=== PATIENT | female | born 1945 | race Caucasian/White ===

== ENCOUNTER → 2017-03-14 | Outpatient (CLI) | payer OTHER, BC ==
[~2017-03-14] MED LIST: ACET-1256 PO; ALBU18002 INH; AMLO2.5T PO; ATOR-24 PO; ATV/1 PO; ATV1 SL; BENAZEPRIL/HCTZ; CITA10TA4 PO; CITA20TA4 PO; CONJ.6255 PO; FLUT1INH7 INH; HYDR1CRE; IPRASOL4 INH; LATA0.5S OPB; LOSA100T33 PO; METO50TA7 PO; OLME40TA30 PO; POLY335019 PO; PRLSR20 PO; SYMIN160 INH; TRAZ50TA35 PO; TRIA120A INTNAS; TRIA1SPR4 NAE
== END | disposition home or self-care (01) ==
LOC: C.LABMFLN 11:22
PROVIDERS: ATTEND Family Medicine
DX: I10 Essential (primary) hypertension (principal)

== ENCOUNTER → 2017-03-18 | Outpatient (CLI) | payer OTHER, BC ==
--- NOTE | 2017-03-18 09:29 | DIAGNOSTIC IMAGING REPORT ---
ULTRASOUND RIGHT UPPER QUADRANT ABDOMEN CLINICAL HISTORY: Right upper quadrant abdominal pain. COMPARISON STUDY: No priors. TECHNIQUE: Real-time, grayscale, and color flow sonography of the right upper quadrant of the abdomen was performed. Images are reviewed in the transverse and longitudinal planes. FINDINGS: Liver: The liver is normal in size and demonstrates heterogeneously increased echotexture suggesting hepatic steatosis. There is no intrahepatic biliary ductal dilatation. The main portal vein is patent. Gallbladder: The gallbladder is normal in appearance. No gallstones are identified. There is no gallbladder wall thickening or pericholecystic fluid. A sonographic Monsalve's sign is reportedly absent. The common bile duct measures up to 0.4 cm in diameter. Pancreas: Visualized portions of the pancreatic head and body are normal in appearance. Right kidney: The right kidney is atrophic and without hydronephrosis. Ascites: None. IMPRESSION: 1. No acute sonographic abnormality is identified in the right upper quadrant. No gallstones are seen. 2. Findings suggest hepatic steatosis. Electronically signed by: Cirilo Jean M.D. 03/18/2017 9:27 AM Dictated Date/Time: 03/18/2017 9:25 AM
== END | disposition home or self-care (01) ==
LOC: C.ULTR 08:01
PROVIDERS: ATTEND Physician Assistant
DX: R10.11 Right upper quadrant pain (principal)

== ENCOUNTER → 2017-03-18 | Outpatient (CLI) | payer OTHER, BC ==
--- NOTE | 2017-03-18 09:27 | DIAGNOSTIC IMAGING REPORT ---
RENAL ARTERY DUPLEX ULTRASOUND CLINICAL HISTORY: Resistant hypertension COMPARISON STUDY: No previous studies for comparison. FINDINGS: The peak systolic velocity within the aorta was 114 cm/s. The right kidney measured 10.1 cm in length. The peak systolic velocity within the right renal artery was 142 cm/s. The left kidney measures 10.1 cm in length. The peak systolic velocity within the left renal artery measured 108 cm/s. IMPRESSION: No evidence of renal artery stenosis by velocity criteria. Electronically signed by: Alverto Castañeda M.D. 03/18/2017 9:24 AM Dictated Date/Time: 03/18/2017 9:23 AM
== END | disposition home or self-care (01) ==
LOC: C.ULTR 07:56
PROVIDERS: ATTEND Family Medicine
DX: I10 Essential (primary) hypertension (principal); R10.11 Right upper quadrant pain

== ENCOUNTER → 2017-04-12 | Outpatient (CLI) | payer OTHER, BC | END | disposition home or self-care (01) | LOC: C.LABMFLN 10:08 | PROVIDERS: ATTEND Physician Assistant | DX: J47.9 Bronchiectasis, uncomplicated (principal); K21.9 Gastro-esophageal reflux disease without esophagitis ==

== ENCOUNTER → 2017-04-14 | Outpatient (CLI) | payer OTHER, BC ==
[~2017-04-14] MED LIST changes: +MoRPHine SULFATE 2 MG/ML CARP ONE
--- NOTE | 2017-04-14 09:58 | DIAGNOSTIC IMAGING REPORT ---
NUCLEAR HEPATOBILIARY SCAN CLINICAL HISTORY: Epigastric abdominal pain. Chronic gastroesophageal reflux disease. COMPARISON STUDY: Abdominal ultrasound dated 03/18/2017. TECHNIQUE: Dynamic images of the liver and anterior abdomen were obtained every 5 minutes for a total of 60 minutes following the IV administration of 5.4mCi of technetium 99m Choletec. The gallbladder was not visualized at 60 minutes. The patient then received 2 mg of IV morphine and additional static images were acquired every 5 minutes for an additional 30 minutes. FINDINGS: The hepatobiliary scan shows prompt and homogeneous hepatic uptake. There is visualized activity within the intra and extrahepatic biliary tree at 10 minutes. There is normal biliary to bowel transit, with small bowel visualized by 15 minutes. The gallbladder was not definitively visualized at 60 minutes. The patient then received IV morphine, and a structure that likely represents the gallbladder is present 65 minutes. This also likely flash filled on the initial 60 minute study but this is indeterminant. IMPRESSION: 1. The gallbladder was not definitively visualized at 60 minutes. 2. The patient received IV morphine, a structure that likely represents the gallbladder fills with tracer by 65 minutes. This also likely showed flash filling on the initial examination. Acute cholecystitis is considered unlikely. Close clinical and laboratory correlation will be required. Electronically signed by: Cirilo Jean M.D. 04/14/2017 9:57 AM Dictated Date/Time: 04/14/2017 9:50 AM
== END | disposition home or self-care (01) ==
LOC: C.NUCL 07:30
PROVIDERS: ATTEND Physician Assistant
DX: K21.9 Gastro-esophageal reflux disease without esophagitis (principal)

== ENCOUNTER → 2017-08-23 | Outpatient (CLI) | payer OTHER, BC ==
[~2017-08-23] MED LIST changes: -ACET-1256 PO; -ATV1 SL; -BENAZEPRIL/HCTZ; -CITA10TA4 PO; -CITA20TA4 PO; -CONJ.6255 PO; -FLUT1INH7 INH; -HYDR1CRE; -LATA0.5S OPB; +LOSA100T26 PO; -LOSA100T33 PO; -METO50TA7 PO; -MoRPHine SULFATE 2 MG/ML CARP ONE; -OLME40TA30 PO; -TRAZ50TA35 PO; -TRIA120A INTNAS
[2017-08-23 18:10] LABS: BASO % 0.2 %; BASO ABS # 0.02 K/uL (0-0.2); COMPLETE YES; EOS % 1.1 %; HEMATOCRIT 37.3 % (37-47); IG% 0.3 %; LYMPH % 17.8 %; LYMPH ABS # 1.71 K/uL (1.2-3.4); MEAN CELL VOLUME 97.4 fL (80-100); MEAN CORPUSCULAR HEMOGLOBIN 31.9 pg (25-34); MEAN CORPUSCULAR HGB CONC 32.7 g/dl (32-36); MEAN PLATELET VOLUME 8.4 fL (7.4-10.4); MONO % 7.8 %; NEUT % 72.8 %; PLATELET COUNT 284 K/uL (130-400); RED BLOOD COUNT 3.83 M/uL (4.2-5.4); WHITE BLOOD COUNT 9.59 K/uL (4.8-10.8)
[2017-08-23 18:30] LABS: ALT/SGPT 14 U/L (12-78); AMYLASE 60 U/L (25-115); BLOOD UREA NITROGEN 15 mg/dl (7-18); BUN/CREATININE RATIO 16.5 (10-20); CALCIUM 9.3 mg/dl (8.5-10.1); CARBON DIOXIDE 27 mmol/L (21-32); CHLORIDE 103 mmol/L (98-107); CREATININE 0.92 mg/dl (0.60-1.20); GLUCOSE 131 mg/dl (70-99); POTASSIUM 3.7 mmol/L (3.5-5.1); SODIUM 138 mmol/L (136-145)
[2017-08-23 18:33] LABS: ALKALINE PHOSPHATASE 70 U/L (45-117); AST/SGOT 11 U/L (15-37)
== END | disposition home or self-care (01) ==
LOC: C.LABMFLN 17:03
PROVIDERS: ATTEND Family Medicine
DX: R19.7 Diarrhea, unspecified (principal); K92.1 Melena; R10.13 Epigastric pain

== ENCOUNTER → 2017-08-25 | Outpatient (CLI) | payer BC ==
[~2017-08-25] MED LIST changes: +ACET-1256 PO; +CITA20TA4 PO; +FLUT1INH7 INH; +LATA0.5S OPB; +TRAZ50TA35 PO
[2017-08-26 23:04] LABS: CRYPTOSPORIDIUM AG TC 37213 NOT DETECTED (NOT DETECTED); O&P GIARDIA AG NOT DETECTED (NOT DETECTED)
== END | disposition home or self-care (01) ==
LOC: C.LABMFLN 14:09
PROVIDERS: ATTEND Family Medicine
DX: R19.7 Diarrhea, unspecified (principal); K92.1 Melena; R10.13 Epigastric pain

== ENCOUNTER → 2018-03-21 | Outpatient (CLI) | payer OTHER, BC ==
[~2018-03-21] MED LIST changes: -ATOR-24 PO; -LOSA100T26 PO; +LOSA100T33 PO; -POLY335019 PO; -SYMIN160 INH
[2018-03-21 12:36] LABS: BASO % 0.8 %; BASO ABS # 0.04 K/uL (0-0.2); EOS % 2.9 %; EOS ABS # 0.14 K/uL (0-0.5); HEMATOCRIT 38.5 % (37-47); HEMOGLOBIN 12.7 g/dL (12.0-16.0); IG# 0.01 K/uL (0.00-0.02); LYMPH % 31.1 %; LYMPH ABS # 1.49 K/uL (1.2-3.4); MEAN CELL VOLUME 99.7 fL (80-100); MEAN CORPUSCULAR HEMOGLOBIN 32.9 pg (25-34); MEAN PLATELET VOLUME 8.9 fL (7.4-10.4); MONO % 10.6 %; MONO ABS # 0.51 K/uL (0.11-0.59); NEUT % 54.4 %; PLATELET COUNT 328 K/uL (130-400); RED CELL DISTRIBUTION WIDTH CV 12.9 % (11.5-14.5); RED CELL DISTRIBUTION WIDTH SD 46.9 fL (36.4-46.3); WHITE BLOOD COUNT 4.79 K/uL (4.8-10.8)
[2018-03-21 13:56] LABS: ALBUMIN 3.8 gm/dl (3.4-5.0); ALKALINE PHOSPHATASE 75 U/L (45-117); ALT/SGPT 19 U/L (12-78); AST/SGOT 13 U/L (15-37); BLOOD UREA NITROGEN 13 mg/dl (7-18); CALCIUM 9.7 mg/dl (8.5-10.1); CARBON DIOXIDE 30 mmol/L (21-32); CREATININE 0.97 mg/dl (0.60-1.20); GLUCOSE 111 mg/dl (70-99); POTASSIUM 3.6 mmol/L (3.5-5.1); SODIUM 137 mmol/L (136-145); TOTAL PROTEIN 7.6 gm/dl (6.4-8.2)
== END | disposition home or self-care (01) ==
LOC: C.LABMFLN 09:05
PROVIDERS: ATTEND Family Medicine
DX: M79.7 Fibromyalgia (principal); M79.89 Other specified soft tissue disorders; R53.83 Other fatigue; R07.89 Other chest pain; Z87.898 Personal history of other specified conditions

== ENCOUNTER → 2018-06-29 | Outpatient (CLI) | payer OTHER, BC ==
[~2018-06-29] MED LIST changes: +IPRA-64 INH; -IPRASOL4 INH
--- NOTE | 2018-06-29 15:10 | DIAGNOSTIC IMAGING REPORT ---
MRI CERVICAL WITHOUT CONTRAST CLINICAL HISTORY: M54.12 Cervical radiculopathy NECK PAIN WITH LEFT SHOULDER RADICULOPATHY. TECHNIQUE: Sagittal and axial T1, T2 and STIR images were obtained. COMPARISON STUDY: No previous studies for comparison. There are no suspicious areas of marrow replacement. No intrinsic cervical cord lesions are visualized. The examination is significantly compromised due to patient motion artifact. Multiple sequences were repeated. C2-3: There is a circumferential disc bulge. There is no significant spinal or foraminal stenosis C3-4: There is a circumferential disc bulge. There is mild spinal stenosis. There is mild bilateral foraminal narrowing C4-5: There is no evidence of disc bulge or focal herniation. There is no significant spinal stenosis. There is mild right-sided foraminal narrowing C5-6 :There is no evidence of significant disc bulge or focal herniation. There is no significant spinal stenosis. There is minor bilateral foraminal narrowing C6-7: There is a circumferential disc bulge slightly asymmetric to the left. There is no significant spinal stenosis. There is bilateral foraminal narrowing C7-T1: There is no evidence of disc bulge or focal herniation. There is no evidence of spinal or foraminal stenosis. IMPRESSION: 1. Examination compromised due to patient motion artifact 2. No intrinsic cord lesions identified given the limitations of study 3. Multilevel spondylitic change. Mild spinal stenosis the C3-4 level. Multilevel foraminal narrowing. Electronically signed by: Alverto Castañeda M.D. 06/29/2018 3:08 PM Dictated Date/Time: 06/29/2018 3:05 PM
== END | disposition home or self-care (01) ==
LOC: C.MRI 13:53
PROVIDERS: ATTEND Family Medicine
DX: M54.12 Radiculopathy, cervical region (principal)

== ENCOUNTER 2019-08-18 09:37 | Inpatient (IN) ==
[2019-08-18] MEDS ORDERED: SODIUM CHLORIDE 0.9% 1000ML 1,000 ML IV SCH (10:00)
[2019-08-18 10:25] LABS: Basophils # (auto) 0.02 K/uL (0-0.2); Basophils % (auto) 0.4 %; Eosinophils # (auto) 0.06 K/uL (0-0.5); Eosinophils % (auto) 1.3 %; Hemoglobin 12.2 g/dL (12.0-16.0); Immature Granulocytes # (auto) 0.02 K/uL (0.00-0.02); Immature Granulocytes % (auto) 0.4 %; Lymphocytes # (auto) 0.62 K/uL (1.2-3.4); Lymphocytes % (auto) 13.8 %; Mean Corpuscular Hgb Conc 33.9 g/dL (32-36); Mean Corpuscular Volume 94.5 fL (80-100); Mean Platelet Volume 8.5 fL (7.4-10.4); Monocytes # (auto) 0.47 K/uL (0.11-0.59); Monocytes % (auto) 10.5 %; Neutrophils % (auto) 73.6 %; Platelet Count 275 K/uL (130-400); RDW Coefficient of Variation 14.1 % (11.5-14.5); RDW Standard Deviation 48.4 fL (36.4-46.3); Red Blood Count 3.81 M/uL (4.2-5.4); White Blood Count 4.49 K/uL (4.8-10.8)
--- NOTE | 2019-08-18 10:30 | XRay Report ---
XR chest 1V portable CLINICAL HISTORY: weakness COMPARISON STUDY: Chest radiograph June 27, 2019. Chest CT July 19, 2019. FINDINGS: A large hiatal hernia is noted. There is cardiomegaly without evidence for pulmonary edema. There is no pneumothorax or pleural effusion. No consolidation. IMPRESSION: No acute cardiopulmonary findings. Large hiatal hernia. Electronically signed by: Bolivar Contreras M.D. 08/18/2019 10:29 AM
[2019-08-18 10:50] LABS: Appearance Urine Cloudy (Clear); Bacteria Urine Automated 1+ (Negative); Bilirubin Urine Negative (Negative); Blood Urine Negative (Negative); Color Urine Yellow; Epithelial Cell Urine Auto >30 /lpf (0-5); Glucose Urine UA Negative (Negative); Ketones Urine Trace (Negative); Leukocyte Esterase Urine Trace (Negative); Nitrite Urine Negative (Negative); Protein Urine Negative (Negative); RBC Urine Automated 0-4 /hpf (0-4); Specific Gravity Urine 1.012 (1.000-1.030); Urobilinogen Urine Negative (Negative); pH Urine 5.5 (4.5-7.5)
[2019-08-18 10:58] LABS: Alanine Aminotransferase 25 U/L (12-78); Albumin Level 3.6 gm/dl (3.4-5.0); Alkaline Phosphatase 68 U/L (45-117); Aspartate Aminotransferase 32 U/L (15-37); BUN Creatinine Ratio 13.4 (10-20); Bilirubin,Total 0.3 mg/dl (0.2-1); Blood Urea Nitrogen 17 mg/dl (7-18); Calcium 8.8 mg/dl (8.5-10.1); Carbon Dioxide 23 mmol/L (21-32); Chloride 94 mmol/L (98-107); Creatinine Clr Calc Pharmacy 41.7 ml/min; Est GFR (African American) 49.3; Est GFR (Non-African American) 42.6; Globulin 3.6 gm/dl (2.5-4.0); Glucose 61 mg/dl (70-99); Magnesium 1.8 mg/dl (1.8-2.4); Potassium 4.6 mmol/L (3.5-5.1); Sodium 127 mmol/L (136-145); Thyroid Stimulating Hormone 0.633 uIu/ml (0.300-4.500); Total Protein 7.2 gm/dl (6.4-8.2); Troponin I < 0.015 ng/ml (0-0.045)
[2019-08-18 11:04] LABS: Cast Urine Automated 0 /lpf (0-5)
[2019-08-18] MEDS ORDERED: ONDANSETRON INJ 2 MG/ML 2 ML VIAL IV STA (11:09)
[2019-08-18] MEDS ORDERED: HYDROmorphone INJ 0.5 MG/0.5 ML SYR IV STA (11:09)
--- NOTE | 2019-08-18 11:16 | CT Scan Report ---
CT OF THE HEAD WITHOUT CONTRAST CLINICAL HISTORY: fall, confusion COMPARISON STUDY: MRI of the brain September 04, 2018. TECHNIQUE: Helical axial images of the head were obtained without IV contrast. Automated exposure con trol was utilized for the study. A dose lowering technique was utilized adhering to the principles o f ALARA. FINDINGS: No acute intracranial hemorrhage, midline shift or mass effect is present. The ventricular system is unremarkable. The basilar cisterns are patent. No extra-axial collections are present. Ther e are no findings to suggest acute dural sinus thrombosis or acute territorial infarct. No significan t calvarial abnormalities are present. Visualized portions of the sinuses and mastoid air cells are c lear. White matter hypodensity suggests small vessel disease. IMPRESSION: 1. No acute intracranial findings. 2. No calvarial fracture. Electronically signed by: Bolivar Contreras M.D. 08/18/2019 11:15 AM
--- NOTE | 2019-08-18 11:24 | CT Scan Report ---
CT OF THE LUMBAR SPINE CLINICAL HISTORY: Fall. Lower back pain. Sacral pain. COMPARISON STUDY: No previous studies for comparison. TECHNIQUE: Helical axial images of the lumbar spine were obtained. Sagittal and coronal reconstruct ions were viewed. Automated exposure control was utilized for the study. A dose lowering technique was utilized adhering to the principles of ALARA. FINDINGS: Anterolisthesis of L5 on S1 is due to facet arthrosis. There is severe multilevel facet art hrosis. Marked disc space narrowing at L5-S1 is noted with vacuum disc phenomenon. Similar findings w ere shown at L4-L5. No acute lumbar spine fracture is noted. Central canal and neural foramen are sub optimally assessed by CT. Paravertebral soft tissues are unremarkable by CT. A moderate sized hiatal hernia is partially imaged. IMPRESSION: 1. No acute lumbar spine fracture or subluxation. 2. Multilevel degenerative changes within the lumbar spine, as described above. Electronically signed by: Bolivar Contreras M.D. 08/18/2019 11:23 AM
--- NOTE | 2019-08-18 11:30 | CT Scan Report ---
CT OF THE PELVIS WITHOUT CONTRAST CLINICAL HISTORY: fall, sacrum pain COMPARISON STUDY: No previous studies for comparison. TECHNIQUE: Axial images of the pelvis were obtained without IV contrast. Sagittal and coronal reconst ructions were viewed. Automated exposure control was utilized for the study. A dose lowering techniq ue was utilized adhering to the principles of ALARA. FINDINGS: Mild right thigh subcutaneous infiltration is noted. No large hematoma is identified. There is no pelvic lymphadenopathy. There is no pelvic mass. Bladder is mildly distended. Sacroiliac joint s and symphysis pubis are intact. No acute fracture within the pelvis or hips is identified. IMPRESSION: 1. No acute fracture within the pelvis or hips. 2. Minimal infiltration within the right thigh which may reflect edema or a small contusion. Electronically signed by: Bolivar Contreras M.D. 08/18/2019 11:28 AM
[2019-08-18] MEDS ORDERED: LORazepam 1 MG TAB PO PRN (12:50)
[2019-08-18] MEDS ORDERED: ALBUTEROL HFA 8 GM INHALER INH PRN (12:50)
[2019-08-18] MEDS ORDERED: POLYETHYLENE (MIRALAX) 17 GM PACK PO PRN (13:24)
[2019-08-18] MEDS ORDERED: ACETAMINOPHEN 325 MG TAB PO PRN (13:24)
--- NOTE | 2019-08-18 14:00 | History & Physical Report ---
Date of Service August 18, 2019 Assessment & Plan (1) Metabolic encephalopathy: Likely multifactorial secondary to below Dehydration/increased creatinine Increased level of voriconazole possibly due to interaction with Protonix Admit patient to telemetry Continue supportive care Adjust medications as mentioned below Heparin for DVT prophylaxis (2) Low back pain: Lidoderm patch CT scan lumbar spine was negative for any fracture in ED Physical therapy occupational therapy (3) Fall: Fall precaution physical therapy/Occupational Therapy (4) Visual hallucinations: This could most likely could be a side effects for increased levels of voriconazole Ordered a reference [facility] of voriconazole trough, usually levels higher than 5.5 are associated with an colopathy and visual hallucinations Meanwhile recommend to continue voriconazole on the same dose 200 mg p.o. twice daily choose to treat through 12 to 16 weeks Other medications can be adjusted She will be of Bactrim in 1 day And with stopping Protonix, will monitor his visual hallucination and confusion I expect improvement after adjusting the level of voriconazole (5) Gastroesophageal reflux: Currently she does not have any active GERD symptoms discussed with her and with family, will hold her Protonix for few days, then she can be restarted on only 10 mg daily if needed. Unfortunately also will not be able to give her Pepcid due to QTC prolongation, but again it can be given intermittently as needed heartburn and concomitant with Tums or other antacids After finishing the course of voriconazole she can be restarted again on PPI as much she has she needs (6) Allergic bronchopulmonary aspergillosis: After reviewing her CAT scan from the end of June they do agree with pursuing voriconazole for treatment of possible ABPA or pulmonary nodular aspergillosis. It is always expected to have some side effects and interactions when you start any long-term azole therapy, if we can make some adjustment and power through the course of therapy that would be the best choice for the patient. 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 Last dose of Bactrim will be on 08/17 3 in the morning, family agree with the plan (8) Essential hypertension: Stopped losartan hydrochlorothiazide due to bump in creatinine Decreased Norvasc to 5 mg due to interaction with voriconazole Started her on hydralazine 25 mg p.o. twice daily, dose can be titrated up as needed for her blood pressure History of Present Illness 74 years old female with past medical history of essential hypertension, GERD, asthma, depression, and anxiety and constellation of pulmonary system that prompted outpatient work-up with a CT scan chest, that showed bronchiectatic changes in basilar lung field with scattered micro-nodularity. Patient saw Dr. Gentile in the office status post fiberoptic bronchoscopy exam on 07/23 that revealed stenotrophomonas with intermediate sensitivity to Levaquin, patient was started on Bactrim last day of the course will be tomorrow, also patient was found to have aspergillus which raised the suspicious for allergic bronchopulmonary aspergillosis versus chronic nodular aspergillosis although the latter seems to be less likely putting her clinical picture into the context, , another differential diagnosis is underlying Mycobacterium of them complex. Patient appropriately was placed on levofloxacin initially but because of the sensitivity of the stenotrophomonas was intermediate to Levaquin since she was switched to Bactrim which she will finish tomorrow. She was also placed on voriconazole 200 mg twice daily and she seems to be tolerating this well. Unfortunately slowly she started developing generalized weakness and visual hallucinations with also associated some confusion and encephalopathy, Patient told me that she is so demons, her was sleeping next to her in bed and she thought his standing next to the bed and when she asked him where are you he said honey I am next you in bed, she reached out to touch the shadow that was standing next to the bed but he disappeared from next to her bed, she also was trying to eat a bowl of cereal although there was no cereal in front of her. Patient notes that the these are visual hallucinations she is very reaso nable and answer all questions appropriately. Aside from that she also has generalized weakness she is unable to stand and walk without floral assistant. Rest of her vitals are stable patient will be admitted for further evaluation and management Primary Care Provider: Cirilo Macias MD Allergies Allergy/AdvReac Type Severity Reaction Status Date / Time lisinopril Allergy Intermediate COUGH Verified 08/18/19 10:30 Penicillins Allergy Intermediate RASH Verified 08/18/19 10:30 adhesive Allergy Mild ITCHING Verified 08/18/19 10:30 WITH EXTENDED USE Sulfa (Sulfonamide Allergy Mild RASH Verified 08/18/19 10:30 Antibiotics) Home Medications Home Medications Medication Instructions Recorded Confirmed Type latanoprost 0.005 % eye drops 1 drops OP HS ml 08/21/18 08/18/19 History lorazepam 1 mg tablet 1 mg PO HS PRN #90 tab 05/30/19 08/18/19 Rx budesonide-formoterol HFA 160 2 puffs INH BID #10.2 gm 06/01/19 08/18/19 Rx mcg-4.5 mcg/actuation aerosol inhaler bupropion HCl XL 300 mg 24 hr 300 mg PO QAM #90 tab 06/01/19 08/18/19 Rx tablet, extended release losartan 100 1 tab PO DAILY #90 tab 06/01/19 08/18/19 Rx mg-hydrochlorothiazide 25 mg tablet omeprazole 20 mg capsule,delayed See Rx Instructions PO DAILY #0 cap 06/01/19 08/18/19 Rx release albuterol sulfate HFA 90 2 puffs INH Q4H PRN #18 gm 07/05/19 08/18/19 Rx mcg/actuation aerosol inhaler codeine-guaifenesin 5 ml PO Q6H PRN 07/17/19 08/18/19 History amlodipine [Norvasc] 10 mg PO DAILY 07/23/19 08/18/19 History sulfamethoxazole 800 1 tab PO BID 10 Days #20 tab 08/09/19 08/18/19 Rx mg-trimethoprim 160 mg tablet voriconazole 200 mg tablet 200 mg PO Q12H #60 tab 08/09/19 08/18/19 Rx Past Med/Surg History Medical History Cervicalgia (Chronic) Myofascial pain (Chronic) Cervical spondylosis (Chronic) Cervical spinal stenosis (Chronic) Cervicogenic headache (Chronic) Cervical facet syndrome (Chronic) Anxiety (Chronic) Arthritis (Chronic) Asthma (Chronic) Depression (Chronic) Gastroesophageal reflux (Chronic) Hypertension (Chronic) Surgical History History of cholecystectomy (Chronic) History of repair of right rotator cuff (Chronic) H/O arthroscopy of knee (Acute) bilateral knees H/O hemorrhoidectomy (Acute) Family History Other Family history non-contributory Social History Preferred Language: [place] Communication Ability: Effective Clinical Staff Educator Required: No Beliefs That Will Affect Care: None Current Living Situation: Spouse current occupational status: retired Other Information That Helps Us Care for You: No Feels Safe at Home: Yes Safety Concerns: Feels Safe At This Time Smoking Status: Never smoker Second Hand Exposure: No ; Hx Alcohol Use: No Hx Substance Use: No Review of Systems Review of Systems: Review of system Constitutional: Generalized weakness and fatigue as mentioned above Eyes: no blurring of vision / no eye pain / no discharge / no redness ENT: no hearing loss / no epistaxis /no swallowing problems Respiratory: no cough / no wheezing / no SOB / no hemoptysis Cardiovascular: no Chest pain / no lower extremity edema / no palpitation Abdomen: no pain / no nausea / no vomiting / no constipation Musculoskeletal: no joint pain / no muscle pain / no joint swelling Genitourinary: no dysuria / no incontinence / no urinary retention Neurologic: no focal weakness / no numbness/tingling /rather generalized weakness and hallucinations with confusion Psychiatric: no depression symptoms / no anxiety / no insomnia Endocrine: no excessive thirst / no excessive urination Hematologic: no abnormal bleeding / no bruising / no LN swelling Skin: No rash / no pallor Physical Exam Physical Exam: Physical examination General patient appears to be comfortable, not in acute distress HEENT: Atraumatic , normocephalic /no jaundice /no pallor /anicteric /no dry mucous membrane /normal external ear inspection Neck: Supple /no swelling /central trach Heart: S1/S2 normal/regular rate and rhythm/no gallop /no rub /no murmur Lungs: Clear to auscultation bilaterally/normal chest with expansion/no rhonchi/no rales/no wheezing/no use of accessory muscles of respiration Abdomen: Soft/nontender/no guarding/no rebound/no organomegaly/no pulsatile mass Musculoskeletal: No swelling/no edema/no tenderness/normal range of motion Neuro exam: Awake alert oriented 3/cranial nerves II through XII appear to be intact/sensation intact/moves all extremities/no abnormal movements Psychiatric evaluation: No depressed mood/normal affect Skin: No rash on exposed skin area/no erythema Extremity: Normal pulse/no pitting edema/no clubbing or cyanosis Endocrine/lymphatic: No obvious lymphadenopathy /no lymphedema Results & Data Vital Signs (Past 12 Hours) Vital Signs Temp Pulse Pulse Resp BP BP Pulse Ox 08/18/19 13:00 100 H 19 119/102 H 95 08/18/19 11:05 88 17 131/72 96 08/18/19 09:45 37.2 C 105 H 17 152/79 H 96 Code Status & VTE Plan VTE Prophylaxis Plan VTE Prophylaxis will be ordered: Yes PG Care Time/CCT Total # of Minutes Spent Total Time Spent with Patient: 60 minutes total time spent is greater than 50% in coordination of care (as documented) at patient's floor/unit and/or counseling patient/family discussion of care with nursing staff (1) Low back pain Back pain laterality: midline Chronicity: acute Sciatica presence: without sciatica Qualified Code(s): M54.5 - Low back pain (2) Fall Encounter type: initial encounter Qualified Code(s): W19.XXXA - Unspecified fall, initial encounter : Low back pain Qualifiers: Chronicity: acute Back pain laterality: midline Sciatica presence: without sciatica Qualified Code(s): M54.5 - Low back pain Fall Qualifiers: Encounter type: initial encounter Qualified Code(s): W19.XXXA - Unspecified fall, initial encounter
[2019-08-18] MEDS: SODIUM CHLORIDE 0.9% 1000ML 1,000 ML IV SCH (16:46)
[2019-08-18] MEDS: SULFAMETHOXAZOLE/TRIMETHOPRIM DS 800/160MG TAB PO SCH ×2 (16:46→22:09)
[2019-08-18] MEDS: VORICONAZOLE 200 MG TABLET PO SCH (16:47)
--- NOTE | 2019-08-18 17:44 | Emergency Department Note ---
Entered by Kathia Gregory acting as a scribe for Keith Wallis MD ED Provider Note CHIEF COMPLAINT: Illness HISTORY OF PRESENT ILLNESS: The patient is a 74 year old female with past medical history of cervicalgia, myofascial pain, anxiety, hypertension, asthma, who presents to the Emergency Room with complaints of constant illness that started 10 days ago. The patient reports she fell on her tailbone on Tuesday and is sore. She states she hit her head. She notes she recently has been hallucinating and weak. The patients daughter states the patient went to her pcts for 3 different funguses in her lungs. She additionally reports she has been on two different antibiotics that caused her symptoms. The daughter notes the patient has been very confused lately. The patient reports she has intermittent vomiting and is not eating much. She states she slurs with the antibiotics. The patient additionally notes she has been seeing demons and colors that are not there. The daughter states the patient has been getting progressively worse since the fall. Pt denies LOC, headache, fevers, chills, diaphoresis, visual changes, neck pain, chest pain, breathing difficulties, nausea, abdominal pain, back pain, melena, h ematochezia, urinary symptoms, numbness, lymphadenopathy, rash, or other complaints. REVIEW OF SYSTEMS: See HPI for pertinent positives and negatives. A total of ten systems were reviewed and were otherwise negative. PMHx/PSHx: Anxiety Asthma Arthritis Depression Hypertension SOCIAL HISTORY: Patient lives at home. PHYSICAL EXAM: GENERAL: Awake, alert, uncomfortable-appearing, in no distress HENT: Normocephalic, atraumatic. Oropharynx unremarkable. EYES: PERRL. Normal conjunctiva. Sclera non-icteric. NECK: Inspection normal. Non-tender. Supple. No nuchal rigidity. FROM. No masses. RESPIRATORY: Clear to auscultation. No wheezes. No rales. Normal respiratory effort. CARDIAC: Tachycardic rate. Normal rhythm. No murmurs. No rubs. Extremities warm and well perfused. Pulses equal. No JVD. GI: Soft, non-distended. No tenderness to palpation. No rebound or guarding. No masses. RECTAL: Deferred. MUSCULOSKELETAL: Atraumatic. Chest examination reveals no tenderness. The back is symmetrical on inspection without obvious abnormality. There is no CVA tender ness to palpation. No joint edema. Lower lumbar sacral midline tenderness. LOWER EXTREMITIES: Calves are equal size bilaterally and non-tender. No edema. No discoloration. NEURO: Normal sensorium. No sensory or motor deficits noted. No drift. Normal rapid alternating movement. Cranial nerves 2-12 intact. SKIN: No rash or jaundice noted. EMERGENCY DEPARTMENT COURSE: 09 :The patient was evaluated in room A4B, and a complete history and physical examination were performed. 1109: The patient requested something for pain so I am ordering her pain medication. 1153: I checked on the patient. I put a page out for [facility] Hospitalist. 1240: I discussed the patients case with Dr. Encarnacion, [facility] Hospitalist. He will evaluate the patient for further management. MEDICAL DECISION MAKING: A4 Prior records/ancillary studies reviewed. Nursing notes reviewed and agree them. Additional history obtained from family. The patient's history was concerning for weakness, a fall, confusion. Differential diagnosis: Etiologies such as soft tissue injury, lumbar/sacral/pelvic fracture, medication side effect, metabolic, infection, hypo/hyperglycemia, electrolyte abnormalities, cardiac sources, intracerebral event, toxicologic, neurologic, as well as others were entertained. Physical examination: As above. The patient had moderate low lumbar and sacral tenderness. No drift. Cranial nerves were intact. No active hallucinations. ER treatment provided: IV Lock Normal saline hydration at 125 mL an hour On reassessment the patient felt better. Diagnostics interpretation by me: ECG: Normal sinus but borderline tachycardic. Septal Q waves noted. No ST elevation. The labs revealed an unremarkable CBC, chemistry panel and urinalysis. Imaging studies: Chest x-ray negative for acute process. Hiatal hernia noted. Head CT was negative. CT scan of the pelvis and lumbar spine did not reveal any acute fracture dislocation. Degenerative changes noted. The patient has had increasing confusion and weakness. She notes visual hallucinations. It is possible this is related to her voriconazole however she is not safe to go home. She needs further evaluation and management in the h ospital. Consultation: A consultation was placed with the hospitalist. The case was discussed and d iagnostics were reviewed. The patient was evaluated in the ER for further treatment. IMPRESSION: Metabolic encephalopathy Low back pain Fall Visual hallucinations Weakness PLAN: Admit The scribe's documentation has been prepared under my direction and personally reviewed by me in its entirety. I confirm that the note above accurately reflects all work, treatment, procedures, and medical decision making performed by me. Impression & Plan Metabolic encephalopathy, Low back pain, Fall, Visual hallucinations, Weakness Past Med/Surg History Medical History Cervicalgia (Chronic) Myofascial pain (Chronic) Cervical spondylosis (Chronic) Cervical spinal stenosis (Chronic) Cervicogenic headache (Chronic) Cervical facet syndrome (Chronic) Anxiety (Chronic) Arthritis (Chronic) Asthma (Chronic) Depression (Chronic) Gastroesophageal reflux (Chronic) Hypertension (Chronic) Surgical History History of cholecystectomy (Chronic) History of repair of right rotator cuff (Chronic) H/O arthroscopy of knee (Acute) bilateral knees H/O hemorrhoidectomy (Acute) Family History Other Family history non-contributory Social History Preferred Language: [place] Communication Ability: Effective 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 Beliefs That Will Affect Care: None Current Living Situation: Spouse current occupational status: retired Feels Safe at Home: Yes Smoking Status: Never smoker Second Hand Exposure: No ; Hx Alcohol Use: No Hx Substance Use: No Results & Data Vital Signs Vital Signs - 24 hr 08/18/19 09:41 08/18/19 09:45 08/18/19 09:48 Temperature 37.2 C Temperature Source Oral Sepsis Recent Fever Within 48 Hours No Sepsis New/Unexplained Change in Mental Status Yes Sepsis Action Taken by Nursing No Action Required Pulse Rate 103 H 105 H 103 H Pulse Rate [Finger] Pulse Rate from SpO2 Sensor 105 H 104 H Pulse Rhythm Regular Pulse Rhythm [Finger] Respiratory Rate 17 17 21 Respiratory Effort / Characteristics Non-Labored Spontaneous Respiratory Depth Normal Respiratory Pattern Regular Blood Pressure 152/79 H 152/79 H Blood Pressure [Right Arm] Blood Pressure Mean 103 103 Blood Pressure Mean [Right Arm] Pulse Oximetry 96 96 95 Oxygen Delivery Method Room Air 08/18/19 10:00 08/18/19 11:05 08/18/19 11:30 Temperature Temperature Source Sepsis Recent Fever Within 48 Hours Sepsis New/Unexplained Change in Mental Status Sepsis Action Taken by Nursing Pulse Rate 103 H 108 H Pulse Rate [Finger] 88 Pulse Rate from SpO2 Sensor 103 H 108 H Pulse Rhythm Pulse Rhythm [Finger] Regular Respiratory Rate 21 17 16 Respiratory Effort / Characteristics Non-Labored Spontaneous Respiratory Depth Normal Respiratory Pattern Regular Blood Pressure 131/72 130/67 Blood Pressure [Right Arm] 131/72 Blood Pressure Mean 91 88 Blood Pressure Mean [Right Arm] 91 Pulse Oximetry 97 97 Oxygen Delivery Method Room Air 08/18/19 12:00 08/18/19 12:30 08/18/19 12:52 Temperature Temperature Source Sepsis Recent Fever Within 48 Hours Sepsis New/Unexplained Change in Mental Status Sepsis Action Taken by Nursing Pulse Rate 103 H 101 H Pulse Rate [Finger] Pulse Rate from SpO2 Sensor 102 H 100 H Pulse Rhythm Pulse Rhythm [Finger] Respiratory Rate 18 23 Respiratory Effort / Characteristics Respiratory Depth Respiratory Pattern Regular Blood Pressure 137/72 126/68 Blood Pressure [Right Arm] Blood Pressure Mean 93 87 Blood Pressure Mean [Right Arm] Pulse Oximetry 93 89 L Oxygen Delivery Method Room Air 08/18/19 13:00 Temperature Temperature Source Sepsis Recent Fever Within 48 Hours Sepsis New/Unexplained Change in Mental Status Sepsis Action Taken by Nursing Pulse Rate 98 H Pulse Rate [Finger] 100 H Pulse Rate from SpO2 Sensor 99 H Pulse Rhythm Pulse Rhythm [Finger] Regular Respiratory Rate 19 Respiratory Effort / Characteristics Non-Labored Spontaneous Respiratory Depth Normal Respiratory Pattern Regular Blood Pressure 119/102 H Blood Pressure [Right Arm] 119/102 H Blood Pressure Mean 107 Blood Pressure Mean [Right Arm] 107 Pulse Oximetry 96 Oxygen Delivery Method Room Air Home Medications Current Medication List: was personally reviewed by me Laboratory Data Attestation: I reviewed the patient's lab results. Result diagrams: 08/18/19 10:14 08/18/19 10:14 Lab Results 08/18/19 08/18/19 08/18/19 Range/Units 10:14 10:14 10:36 WBC 4.49 L (4.8-10.8) K/uL RBC 3.81 L (4.2-5.4) M/uL Hgb 12.2 (12.0-16.0) g/dL Hct 36.0 L (37-47) % MCV 94.5 (80-100) fL MCH 32.0 (25-34) pg MCHC 33.9 (32-36) g/dL RDW Std Deviation 48.4 H (36.4-46.3) fL RDW Coeff of Katya 14.1 (11.5-14.5) % Plt Count 275 (130-400) K/uL MPV 8.5 (7.4-10.4) fL Immature Gran % (Auto) 0.4 % Neut % (Auto) 73.6 % Lymph % (Auto) 13.8 % [place] % (Auto) 10.5 % Eos % (Auto) 1.3 % Baso % (Auto) 0.4 % Immature Gran # (Auto) 0.02 (0.00-0.02) K/uL Neut # (Auto) 3.30 (1.4-6.5) K/uL Lymph # (Auto) 0.62 L (1.2-3.4) K/uL [place] # (Auto) 0.47 (0.11-0.59) K/uL Eos # (Auto) 0.06 (0-0.5) K/uL Baso # (Auto) 0.02 (0-0.2) K/uL Sodium 127 L (136-145) mmol/L Potassium 4.6 (3.5-5.1) mmol/L Chloride 94 L (98-107) mmol/L Carbon Dioxide 23 (21-32) mmol/L Anion Gap 10.0 (3-11) BUN 17 (7-18) mg/dl Creatinine 1.23 H (0.6-1.2) mg/dl Est Cr Clr Drug Dosing 41.7 ml/min Est GFR ( Amer) 49.3 Est GFR (Non-Af Amer) 42.6 BUN/Creatinine Ratio 13.4 (10-20) Glucose 61 L (70-99) mg/dl Calcium 8.8 (8.5-10.1) mg/dl Magnesium 1.8 (1.8-2.4) mg/dl Total Bilirubin 0.3 (0.2-1) mg/dl AST 32 (15-37) U/L ALT 25 (12-78) U/L Alkaline Phosphatase 68 (45-117) U/L Troponin I < 0.015 (0-0.045) ng/ml Total Protein 7.2 (6.4-8.2) gm/dl Albumin 3.6 (3.4-5.0) gm/dl Globulin 3.6 (2.5-4.0) gm/dl Albumin/Globulin Ratio 1.0 (0.9-2) TSH 0.633 (0.300-4.500) uIu/ml Specimen Hemolysis Urine Color Yellow Urine Appearance Cloudy A (Clear) Urine pH 5.5 (4.5-7.5) Ur Specific [place] 1.012 (1.000-1.030) Urine Protein Negative (Negative) Urine Glucose (UA) Negative (Negative) Urine Ketones Trace H (Negative) Urine Blood Negative (Negative) Urine Nitrite Negative (Negative) Urine Bilirubin Negative (Negative) Urine Urobilinogen Negative (Negative) Ur Leukocyte Esterase Trace H (Negative) Urine WBC (Auto) 5-10 H (0-5) /hpf Urine RBC (Auto) 0-4 (0-4) /hpf U Hyaline Cast (Auto) 0 (0-5) /lpf U Epithel Cells (Auto) >30 H (0-5) /lpf Urine Bacteria (Auto) 1+ H (Negative) Administered Medications Hydralazine HCl (Apresoline) 25 mg PO Q12@0600,1800 [facility] Stop: 09/17/19 17:59 Last Admin: 08/18/19 17:26 Dose: 25 mg Documented by: [id number] Sodium Chloride (Nss 1000ml) 1,000 mls @ 125 mls/hr IV .Q8H [facility] Stop: 08/18/19 17:59 Last Admin: 08/18/19 10:21 Dose: 125 mls/hr Documented by: [id number] Sodium Chloride (Nss 1000ml) 1,000 mls @ 65 mls/hr IV .[id number] [facility] Stop: 09/17/19 14:59 Last Admin: 08/18/19 16:46 Dose: 65 mls/hr Documented by: [id number] Trimethoprim/Sulfamethoxazole (Septra Ds 800/160mg Tab) 1 tab PO BID [facility] Stop: 08/20/19 23:59 Last Admin: 08/18/19 16:46 Dose: 1 tab Documented by: [id number] Voriconazole (Vfend) 200 mg PO Q12@0600,1800 [facility] Stop: 08/25/19 17:59 Last Admin: 08/18/19 16:47 Dose: 200 mg Documented by: [id number] Discontinued Medications Hydromorphone HCl (Dilaudid) 0.25 mg IV NOW STA Stop: 08/18/19 11:10 Last Admin: 08/18/19 11:28 Dose: 0.25 mg Documented by: [id number] Ondansetron HCl (Zofran) 4 mg IV NOW STA Stop: 08/18/19 11:10 Last Admin: 08/18/19 11:28 Dose: 4 mg Documented by: [id number] Imaging Data Radiologist's Impression: Radiology results as stated below per my review and the radiologist's interpretation: XR chest 1V portable CLINICAL HISTORY: weakness COMPARISON STUDY: Chest radiograph June 27, 2019. Chest CT July 19, 2019. FINDINGS: A large hiatal hernia is noted. There is cardiomegaly without evidence for pulmonary edema. There is no pneumothorax or pleural effusion. No consolidation. IMPRESSION: No acute cardiopulmonary findings. Large hiatal hernia. Electronically signed by: Bolivar Contreras M.D. 08/18/2019 10:[address] OF THE HEAD WITHOUT CONTRAST CLINICAL HISTORY: fall, confusion COMPARISON STUDY: MRI of the brain September 04, 2018. TECHNIQUE: Helical axial images of the head were obtained without IV contrast. Automated exposure control was utilized for the study. A dose lowering t echnique was utilized adhering to the principles of ALARA. FINDINGS: No acute intracranial hemorrhage, midline shift or mass effect is present. The ventricular system is unremarkable. The basilar cisterns are patent. No extra-axial collections are present. There are no findings to suggest acute dural sinus thrombosis or acute territorial infarct. No significant calvarial abnormalities are present. Visualized portions of the sinuses and mastoid air cells are clear. White matter hypodensity suggests small vessel disease. IMPRESSION: 1. No acute intracranial findings. 2. No calvarial fracture. Electronically signed by: Bolivar Contreras M.D. 08/18/2019 11:[address] OF THE LUMBAR SPINE CLINICAL HISTORY: Fall. Lower back pain. Sacral pain. COMPARISON STUDY: No previous studies for comparison. TECHNIQUE: Helical axial images of the lumbar spine were obtained. Sagittal and coronal reconstructions were viewed. Automated exposure control was utilized for the study. A dose lowering technique was utilized adhering to the principles of ALARA. FINDINGS: Anterolisthesis of L5 on S1 is due to facet arthrosis. There is severe multilevel facet arthrosis. Marked disc space narrowing at L5-S1 is noted with vacuum disc phenomenon. Similar findings were shown at L4-L5. No acute lumbar spine fracture is noted. Central canal and neural foramen are suboptimally assessed by CT. Paravertebral soft tissues are unremarkable by CT. A moderate sized hiatal hernia is partially imaged. IMPRESSION: 1. No acute lumbar spine fracture or subluxation. 2. Multilevel degenerative changes within the lumbar spine, as described above. Electronically signed by: Bolivar Contrears M.D. 08/18/2019 11:[address] OF THE PELVIS WITHOUT CONTRAST CLINICAL HISTORY: fall, sacrum pain COMPARISON STUDY: No previous studies for comparison. TECHNIQUE: Axial images of the pelvis were obtained without IV contrast. Sagi ttal and coronal reconstructions were viewed. Automated exposure control was utilized for the study. A dose lowering technique was utilized adhering to the principles of ALARA. FINDINGS: Mild right thigh subcutaneous infiltration is noted. No large hematoma is identified. There is no pelvic lymphadenopathy. There is no pelvic mass. Bladder is mildly distended. Sacroiliac joints and symphysis pubis are intact. No acute fracture within the pelvis or hips is identified. IMPRESSION: 1. No acute fracture within the pelvis or hips. 2. Minimal infiltration within the right thigh which may reflect edema or a small contusion. Electronically signed by: Bolivar Contreras M.D. 08/18/2019 11:28 AM ECG Data Attestation: I personally reviewed and interpreted this ECG as follows: Indication: weakness Rate (beats per minute): 100 Rhythm: sinus rhythm Findings: + other (Septal Q waves) and + left axis deviation; no PVC, no ST depression and no ST elevation Blood Pressure Blood Pressure Findings: Elevated blood pressure Blood Pressure Disposition: further management by hospitalist Discharge Plan Visit Data *Final* Discharge Date/Time: 08/18/19 14:22 Chief Complaint: Illness ED Provider: Keith Wallis Discharge Problem: Metabolic encephalopathy, Low back pain, Fall, Visual hallucinations, Weakness Patient Disposition: Admitted As Inpatient Discharge Instructions Interventions: ED Discharge Assessment Last Done: 08/18/19 14:22 Discharge Problem: Low back pain Qualifiers: Chronicity: acute Back pain laterality: midline Sciatica presence: without sciatica Qualified Code(s): M54.5 - Low back pain Fall Qualifiers: Encounter type: initial encounter Qualified Code(s): W19.XXXA - Unspecified fall, initial encounter The scribe's documentation has been prepared under my direction and personally reviewed by me in its entirety. I confirm that the note above accurately reflec ts all work, treatment, procedures, and medical decision making performed by me.
[2019-08-18] MEDS ORDERED: SEPTRA DS HOME PACK 1 EA VIAL PO SCH ×2 (21:00)
[2019-08-18] MEDS: BUDESONIDE/FORMOTEROL FUMARATE 160/4.5 60 PUFFS/INHALER INH SCH (21:03)
[2019-08-18] MEDS: HEPARIN SOD 5,000 UNIT/0.5 ML VIAL SQ SCH (21:03)
[2019-08-18] MEDS: LATANOPROST 0.005% OP SOLN 2.5 ML BTL OP SCH (21:04)
[2019-08-19] MEDS: SODIUM CHLORIDE 0.9% 1000ML 1,000 ML IV SCH ×2 (05:39→21:00)
[2019-08-19] MEDS: VORICONAZOLE 200 MG TABLET PO SCH ×2 (05:39→17:54)
[2019-08-19] MEDS: HEPARIN SOD 5,000 UNIT/0.5 ML VIAL SQ SCH ×2 (08:09→21:02)
[2019-08-19] MEDS: AMLODIPINE BESYLATE 5 MG TAB PO SCH (08:09)
[2019-08-19] MEDS: BUDESONIDE/FORMOTEROL FUMARATE 160/4.5 60 PUFFS/INHALER INH SCH ×2 (08:10→21:02)
[2019-08-19] MEDS: SULFAMETHOXAZOLE/TRIMETHOPRIM DS 800/160MG TAB PO SCH ×2 (08:10→21:00)
[2019-08-19] MEDS: BuPROPion XL 300 MG TABCR PO SCH (08:10)
[2019-08-19 08:30] LABS: Basophils # (auto) 0.02 K/uL (0-0.2); Basophils % (auto) 0.5 %; Eosinophils # (auto) 0.09 K/uL (0-0.5); Eosinophils % (auto) 2.4 %; Hematocrit (blood only) 33.8 % (37-47); Immature Granulocytes # (auto) 0.01 K/uL (0.00-0.02); Immature Granulocytes % (auto) 0.3 %; Lymphocytes # (auto) 0.88 K/uL (1.2-3.4); Mean Corpuscular Hemoglobin 31.3 pg (25-34); Mean Corpuscular Hgb Conc 32.5 g/dL (32-36); Mean Corpuscular Volume 96.3 fL (80-100); Mean Platelet Volume 8.6 fL (7.4-10.4); Monocytes # (auto) 0.44 K/uL (0.11-0.59); Monocytes % (auto) 11.5 %; Neutrophils # (auto) 2.38 K/uL (1.4-6.5); Neutrophils % (auto) 62.3 %; Platelet Count 286 K/uL (130-400); RDW Coefficient of Variation 14.5 % (11.5-14.5); RDW Standard Deviation 51.2 fL (36.4-46.3); Red Blood Count 3.51 M/uL (4.2-5.4); White Blood Count 3.82 K/uL (4.8-10.8)
[2019-08-19] MEDS: TRAMADOL HCL 50 MG TABLET PO PRN ×2 (09:08→14:22)
[2019-08-19 09:19] LABS: BUN Creatinine Ratio 11.4 (10-20); Bilirubin,Total 0.2 mg/dl (0.2-1); Calcium 8.6 mg/dl (8.5-10.1); Magnesium 1.9 mg/dl (1.8-2.4); Potassium 4.4 mmol/L (3.5-5.1)
[2019-08-19 09:29] LABS: Creatinine Clr Calc Pharmacy 57.6 ml/min
--- NOTE | 2019-08-19 15:13 | Hospitalist Progress Note ---
Date of Service August 19, 2019 Assessment & Plan (1) Metabolic encephalopathy: likely due to mild SHI and possible adverse effects of Voriconazole Voriconazole level pending Cr improved to 0.89 from 1.2 so SHI resolved mental status back to baseline, no confusion, no hallucinations (2) Low back pain: Lidoderm patch CT scan lumbar spine was negative for any fracture in ED Physical therapy occupational therapy (3) Fall: Fall precaution physical therapy/Occupational Therapy (4) Visual hallucinations: This could most likely could be a side effects for increased levels of voriconazole Ordered a reference [facility] lab of voriconazole trough, usually levels higher than 5.5 are associated with an encephalopathy and visual hallucinations Meanwhile recommend to continue voriconazole on the same dose 200 mg p.o. twice daily choose to treat through 12 to 16 weeks She will be of Bactrim in 1 day And with stopping Protonix, visual hallucination and confusion resolved completely (5) Gastroesophageal reflux: Currently she does not have any active GERD symptoms discussed with her and with family, will hold her Protonix for few days Unfortunately also will not be able to give her Pepcid due to QTC prolongation, use Tums PRN if she has symptoms After finishing the course of voriconazole she can be restarted again on PPI as much she has she needs (6) Allergic bronchopulmonary aspergillosis: After reviewing her CAT scan from the end of June they do agree with pursuing voriconazole for treatment of possible ABPA or pulmonary nodular aspergillosis. It is always expected to have some side effects and interactions when you start any long-term azole therapy, if we can make some adjustment and power through the course of therapy that would be the best choice for the patient. 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 Last dose of Bactrim will be on 08/17 3 in the morning, family agree with the plan (8) Essential hypertension: Stopped losartan hydrochlorothiazide due to bump in creatinine, resume on discharge Decreased Norvasc to 5 mg due to interaction with voriconazole Started her on hydralazine 25 mg p.o. twice daily while hospitalized, likely no need to continue on discharge (9) Hypoglycemia: no symptoms at all, even when glucose was 41? she was essentially fasting yesterday and last night, poor intake glucose was > 200 on random check after she ate breakfast this is not a side effect of Voriconazole will check HbA1c to rule out DM check sugar in the AM on BMP Subjective patient says she is feeling better no confusion, no hallucinations her only complaint is that she is weak she has a cough but it is chronic with the fungal infection, no sputum production reviewed labs, CBC stable glucose was noted to be really low at 41 on AM labs she says she had not symptoms at all she says she did not eat much at all last night or even the day prior she ate this morning, random glucose was >200 right after eating no h/o diabetes discussed plan to hold PPI to limit side effects of Voriconazole she wants to go home tomorrow if possible Review of Systems Review of Systems: All systems reviewed & are unremarkable except as noted in HPI & below Constitutional: + weakness; no fever and no fatigue Respiratory: + cough; no dyspnea and no sputum production Cardiovascular: no chest pain and no edema Musculoskeletal: + muscle weakness (generalized) Psychiatric: no hallucinations Physical Exam Constitutional: WD/WN, vitals as above Eyes: PERRL, conjunctivae normal, anicteric sclerae ENMT: external ear and nose normal, oropharynx normal Neck: trachea midline, no thyromegaly Respiratory: normal respiratory effort, lungs clear to auscultation Cardiovascular: RRR, no murmur, no edema Gastrointestinal (Abdomen): normal bowel sounds, soft, nontender, no hepatosplenomegaly Musculoskeletal: no cyanosis or clubbing, extremities motor strength 5/5 Skin: no rashes, warm and dry Neurologic: patellar DTR's 2+ bilat, sensation intact and PERRL, EOMI, accommo dation nl, no face palsy, no dysarthria Psychiatric: A+Ox3, euthymic affect Lymphatic: no cervical or axillary lymphadenopathy Results & Data Vital Signs (Past 12 Hours) Vital Signs Temp Pulse Pulse Resp BP BP Pulse Ox 08/19/19 08:51 102 H 08/19/19 07:00 36.6 C 78 20 100/78 95 08/19/19 05:36 106 H 127/72 08/19/19 04:50 36.7 C 103 H 18 99/63 L 94 08/19/19 03:19 117 H Laboratory Results Laboratory Results - last 24 hr 08/19/19 08/19/19 08/19/19 07:54 07:54 09:24 WBC 3.82 L RBC 3.51 L Hgb 11.0 L Hct 33.8 L MCV 96.3 MCH 31.3 MCHC 32.5 RDW Std Deviation 51.2 H RDW Coeff of Katya 14.5 Plt Count 286 MPV 8.6 Immature Gran % (Auto) 0.3 Neut % (Auto) 62.3 Lymph % (Auto) 23.0 Bledsoe % (Auto) 11.5 Eos % (Auto) 2.4 Baso % (Auto) 0.5 Immature Gran # (Auto) 0.01 Neut # (Auto) 2.38 Lymph # (Auto) 0.88 L Bledsoe # (Auto) 0.44 Eos # (Auto) 0.09 Baso # (Auto) 0.02 Sodium 132 L Potassium 4.4 Chloride 101 Carbon Dioxide 19 L Anion Gap 12.0 H BUN 10 D Creatinine 0.89 D Est Cr Clr Drug Dosing 57.6 Est GFR ( Amer) 73.0 Est GFR (Non-Af Amer) 63.0 BUN/Creatinine Ratio 11.4 Glucose 41 L* POC Glucose 225 H Calcium 8.6 Magnesium 1.9 Total Bilirubin 0.2 AST 27 ALT 22 Alkaline Phosphatase 65 Total Protein 6.0 L Albumin 3.0 L Globulin 3.0 Albumin/Globulin Ratio 1.0 Medications Administered Current Inpatient Medications Acetaminophen (Tylenol) 650 mg PO Q4H PRN PRN Reason: Pain or Fever Stop: 09/17/19 13:23 Last Admin: 08/18/19 21:04 Dose: 650 mg Documented by: Al Hydrox/Mg Hydrox/Simethicone (Maalox) 15 ml PO Q4H PRN PRN Reason: Dyspepsia Stop: 09/17/19 13:23 Albuterol (Ventolin Hfa) 2 puffs INH Q4H PRN PRN Reason: shortness of breath Stop: 09/17/19 12:49 Amlodipine Besylate (Norvasc) 5 mg PO DAILY [facility] Stop: 09/18/19 08:59 Last Admin: 08/19/19 08:09 Dose: 5 mg Documented by: Budesonide/Formoterol Fumarate (Symbicort 160mcg/4.5mcg) 2 puffs INH BID [facility] Stop: 09/17/19 20:59 Last Admin: 08/19/19 08:10 Dose: 2 puffs Documented by: Bupropion HCl (Wellbutrin-Xl) 300 mg PO QAM SANAM Stop: 09/18/19 08:59 Last Admin: 08/19/19 08:10 Dose: 300 mg Documented by: Heparin Sodium (Porcine) (Heparin Sodium (Porcine)) 5,000 units SQ Q12 [facility] Stop: 09/17/19 20:59 Last Admin: 08/19/19 08:09 Dose: 5,000 units Documented by: Hydralazine HCl (Apresoline) 25 mg PO Q12@0600,1800 [facility] Stop: 09/17/19 17:59 Last Admin: 08/19/19 05:38 Dose: 25 mg Documented by: Sodium Chloride (Nss 1000ml) 1,000 mls @ 65 mls/hr IV .[id number] [facility] Stop: 09/17/19 14:59 Last Admin: 08/19/19 05:39 Dose: 65 mls/hr Documented by: Latanoprost (Xalatan Oph) 1 drops OP HS [facility] Stop: 09/17/19 20:59 Last Admin: 08/18/19 21:04 Dose: 1 drops Documented by: Lorazepam (Ativan) 1 mg PO HS PRN PRN Reason: sleep Stop: 09/17/19 12:49 Polyethylene Glycol (Miralax Powder Packet) 17 gm PO DAILY PRN PRN Reason: Constipation Stop: 09/17/19 13:23 Tramadol HCl (Ultram) 50 mg PO Q4H PRN PRN Reason: Pain Stop: 09/18/19 09:00 Last Admin: 08/19/19 14:22 Dose: 50 mg Documented by: Trimethoprim/Sulfamethoxazole (Septra Ds 800/160mg Tab) 1 tab PO BID [facility] Stop: 08/20/19 23:59 Last Admin: 08/19/19 08:10 Dose: 1 tab Documented by: Voriconazole (Vfend) 200 mg PO Q12@0600,1800 [facility] Stop: 08/25/19 17:59 Last Admin: 08/19/19 05:39 Dose: 200 mg Documented by: PG Care Time/CCT Total # of Minutes Spent Total Time Spent with Patient: Total time spent is greater than 50% in coordination of care (as documented) at patient's floor/unit and/or counseling patient: (1) Low back pain Back pain laterality: midline Chronicity: acute Sciatica presence: without sciatica Qualified Code(s): M54.5 - Low back pain (2) Fall Encounter type: initial encounter Qualified Code(s): W19.XXXA - Unspecified fall, initial encounter
[2019-08-19] MEDS: ALUMINUM/MAGNESIUM SUSP 30 ML UDC PO PRN (17:10)
[2019-08-19] MEDS: LATANOPROST 0.005% OP SOLN 2.5 ML BTL OP SCH (21:01)
[2019-08-20] MEDS: TRAMADOL HCL 50 MG TABLET PO PRN ×2 (03:10→08:25)
[2019-08-20] MEDS: VORICONAZOLE 200 MG TABLET PO SCH (06:32)
[2019-08-20 06:51] LABS: Hematocrit (blood only) 32.4 % (37-47); Hemoglobin 10.5 g/dL (12.0-16.0); Mean Corpuscular Hemoglobin 31.3 pg (25-34); Mean Corpuscular Hgb Conc 32.4 g/dL (32-36); Mean Corpuscular Volume 96.4 fL (80-100); Mean Platelet Volume 8.5 fL (7.4-10.4); Platelet Count 267 K/uL (130-400); RDW Coefficient of Variation 14.3 % (11.5-14.5); RDW Standard Deviation 50.9 fL (36.4-46.3); Red Blood Count 3.36 M/uL (4.2-5.4); White Blood Count 4.03 K/uL (4.8-10.8)
[2019-08-20 07:35] LABS: Estimated Average Glucose 131 mg/dl; Hemoglobin A1C 6.2 % (4.5-5.6)
[2019-08-20 07:38] LABS: BUN Creatinine Ratio 11.6 (10-20); Calcium 8.4 mg/dl (8.5-10.1); Creatinine Clr Calc Pharmacy 56.9 ml/min; Est GFR (African American) 88.3; Est GFR (Non-African American) 76.2; Potassium 4.6 mmol/L (3.5-5.1)
[2019-08-20] MEDS: SULFAMETHOXAZOLE/TRIMETHOPRIM DS 800/160MG TAB PO SCH ×2 (07:50→20:28)
[2019-08-20] MEDS: AMLODIPINE BESYLATE 5 MG TAB PO SCH (07:50)
[2019-08-20] MEDS: BuPROPion XL 300 MG TABCR PO SCH (07:51)
[2019-08-20] MEDS: BUDESONIDE/FORMOTEROL FUMARATE 160/4.5 60 PUFFS/INHALER INH SCH ×2 (07:51→20:28)
[2019-08-20] MEDS: HEPARIN SOD 5,000 UNIT/0.5 ML VIAL SQ SCH ×2 (07:51→20:27)
[2019-08-20] MEDS: ALUMINUM/MAGNESIUM SUSP 30 ML UDC PO PRN (08:25)
[2019-08-20] MEDS: SODIUM CHLORIDE 0.9% 1000ML 1,000 ML IV SCH (12:24)
[2019-08-20] MEDS: SUCRALFATE 1 GM/10 ML UDC PO SCH ×3 (13:29→20:27)
--- NOTE | 2019-08-20 16:46 | Pulmonary Consultation ---
Date of Consultation August 20, 2019 History of Present Illness Attending Physician: Vinh Simmons 74-year-old white female who was referred to me by Sudarshan Bernabe/CHRISTIAN with the [facility] for bronchoscopic evaluation on 07/23/2019. At that time patient had a chronic cough for many months. She had carried with the diagnosis asthma for many years. Previous pulmonary function studies had revealed an FEV1/FVC ratio of 68 percent but patient has not had a recent PFT. CT scan of the chest showed bronchiectatic changes most prominently displayed a right middle lobe but also with evidence for scattered micro nodularity. Patient had a large right-sided paraesophageal hernia as well and chronic reflux history. Bronchoscopic Yue patient showed evidence of mucoid impaction and grew out stenotrophomonas maltophilia from the bronchial washings with intermediate sensitivity to Levaquin and Bactrim therapy. Patient was started on Bactrim. Aspergillus fumigatus was grown from the bronchial washings and most recently mycobacterium abcessus. Patient was placed on voriconazole 200 milligrams p.o. b.i.d. as I had the concern for allergic bronchopulmonary aspergillosis following the bronchoscopic examination. Patient is not shown significant peripheral eosinophilia and her IgE level is pending. She states she developed visual hallucinations and poor appetite with some nausea. Prior to the Bactrim therapy she was initially placed on Levaquin but due to the intermediate sensitivity was switched to Bactrim. She became encephalopathic and had visual hallucinations. She had poor p.o. intake and apparently had some relative hypoglycemia and weakness and us was seen in the ER eventually admitted on to the hospitalist service. I was asked to see patient consultation. In addition her hydrochlorothiazide and losartan were discontinued due to a rising cre atinine and her Norvasc was decrease to 5 milligrams daily because of possible interaction with voriconazole. Hydralazine was started. Patient is a history of 2 vessel coronary artery disease and acute on chronic sinusitis with allergic rhinitis. She was started on voriconazole 200 milligrams p.o. b.i.d. on 08/09/2019. She has also been utilizing a Symbicort inhaler and has a rescue inhaler she uses p.r.n.. Allergies Allergy/AdvReac Type Severity Reaction Status Date / Time lisinopril Allergy Intermediate COUGH Verified 08/18/19 10:30 Penicillins Allergy Intermediate RASH Verified 08/18/19 10:30 adhesive Allergy Mild ITCHING Verified 08/18/19 10:30 WITH EXTENDED USE Sulfa (Sulfonamide Allergy Mild RASH Verified 08/18/19 10:30 Antibiotics) Home Medications Home Medications Medication Instructions Recorded Confirmed Type latanoprost 0.005 % eye drops 1 drops OP HS ml 08/21/18 08/18/19 History lorazepam 1 mg tablet 1 mg PO HS PRN #90 tab 05/30/19 08/18/19 Rx budesonide-formoterol HFA 160 2 puffs INH BID #10.2 gm 06/01/19 08/18/19 Rx mcg-4.5 mcg/actuation aerosol inhaler bupropion HCl XL 300 mg 24 hr 300 mg PO QAM #90 tab 06/01/19 08/18/19 Rx tablet, extended release losartan 100 1 tab PO DAILY #90 tab 06/01/19 08/18/19 Rx mg-hydrochlorothiazide 25 mg tablet omeprazole 20 mg capsule,delayed See Rx Instructions PO DAILY #0 cap 06/01/19 08/18/19 Rx release albuterol sulfate HFA 90 2 puffs INH Q4H PRN #18 gm 07/05/19 08/18/19 Rx mcg/actuation aerosol inhaler codeine-guaifenesin 5 ml PO Q6H PRN 07/17/19 08/18/19 History amlodipine [Norvasc] 10 mg PO DAILY 07/23/19 08/18/19 History voriconazole 200 mg tablet 200 mg PO Q12H #60 tab 08/09/19 08/18/19 Rx Patient History Medical History Cervicalgia (Chronic) Myofascial pain (Chronic) Cervical spondylosis (Chronic) Cervical spinal stenosis (Chronic) Cervicogenic headache (Chronic) Cervical facet syndrome (Chronic) Anxiety (Chronic) Arthritis (Chronic) Asthma (Chronic) Depression (Chronic) Gastroesophageal reflux (Chronic) Hypertension (Chronic) Surgical History History of cholecystectomy (Chronic) History of repair of right rotator cuff (Chronic) H/O arthroscopy of knee (Acute) bilateral knees H/O hemorrhoidectomy (Acute) Family History Other Family history non-contributory Social History Preferred Language: Kyrgyz Communication Ability: Effective Chamber Walker Required: No Beliefs That Will Affect Care: None Current Living Situation: Spouse current occupational status: retired Feels Safe at Home: Yes Smoking Status: Never smoker Second Hand Exposure: No ; Hx Alcohol Use: No Hx Substance Use: No Review of Systems Constitutional: no problem reported Eyes: no problem reported Ear, Nose, Mouth, Throat: no problem reported Respiratory: no problem reported Cardiovascular: no problem reported Gastrointestinal: no problem reported Genitourinary: no problem reported Musculoskeletal: no problem reported Integumentary: no problem reported Neurologic: no problem reported Psychiatric: no problem reported Endocrine: no problem reported Hematologic / Lymphatic: no problem reported Allergy / Immunological: no problem reported Physical Exam Constitutional: well developed and well nourished; no acute distress Eyes: PERRL, conjunctivae normal, anicteric sclerae ENMT: external ear and nose normal, oropharynx normal Neck: trachea midline, no thyromegaly Respiratory: normal respiratory effort Auscultation: lungs clear to auscultation bilaterally Cardiovascular: RRR, no murmur, no edema Palpation: normal PMI; no thrill Gastrointestinal (Abdomen): normal bowel sounds, soft, nontender, no hepatosplenomegaly Musculoskeletal: no cyanosis or clubbing, extremities motor strength 5/5 Gait: normal gait Skin: no rashes, warm and dry Neurologic: PERRL, EOMI, accommodation nl, no face palsy, no dysarthria Psychiatric: A+Ox3, euthymic affect Lymphatic: no cervical or axillary lymphadenopathy Results & Data Vital Signs (Past 12 Hours) Vital Signs Temp Pulse Pulse Resp BP Pulse Ox 08/20/19 16:33 107 H 08/20/19 14:41 37.0 C 104 H 20 104/67 92 08/20/19 11:36 36.8 C 99 H 20 122/76 91 08/20/19 08:53 97 H 08/20/19 07:32 36.9 C 98 H 17 107/65 91 08/20/19 06:28 36.9 C 103 H 20 123/68 91 PG Care Time/CCT Total # of Minutes Spent Total Time Spent with Patient: Total time spent is greater than 50% in coordination of care (as documented) at patient's floor/unit and/or counseling patient:
--- NOTE | 2019-08-20 16:56 | Pulmonary Consultation ---
Date of Consultation August 20, 2019 Assessment & Plan (1) Mycobacterial infection: (2) Paraesophageal hernia: History of Present Illness Attending Physician: Vinh Simmons Allergies Allergy/AdvReac Type Severity Reaction Status Date / Time lisinopril Allergy Intermediate COUGH Verified 08/18/19 10:30 Penicillins Allergy Intermediate RASH Verified 08/18/19 10:30 adhesive Allergy Mild ITCHING Verified 08/18/19 10:30 WITH EXTENDED USE Sulfa (Sulfonamide Allergy Mild RASH Verified 08/18/19 10:30 Antibiotics) Home Medications Home Medications Medication Instructions Recorded Confirmed Type latanoprost 0.005 % eye drops 1 drops OP HS ml 08/21/18 08/18/19 History lorazepam 1 mg tablet 1 mg PO HS PRN #90 tab 05/30/19 08/18/19 Rx budesonide-formoterol HFA 160 2 puffs INH BID #10.2 gm 06/01/19 08/18/19 Rx mcg-4.5 mcg/actuation aerosol inhaler bupropion HCl XL 300 mg 24 hr 300 mg PO QAM #90 tab 06/01/19 08/18/19 Rx tablet, extended release losartan 100 1 tab PO DAILY #90 tab 06/01/19 08/18/19 Rx mg-hydrochlorothiazide 25 mg tablet omeprazole 20 mg capsule,delayed See Rx Instructions PO DAILY #0 cap 06/01/19 08/18/19 Rx release albuterol sulfate HFA 90 2 puffs INH Q4H PRN #18 gm 07/05/19 08/18/19 Rx mcg/actuation aerosol inhaler codeine-guaifenesin 5 ml PO Q6H PRN 07/17/19 08/18/19 History amlodipine [Norvasc] 10 mg PO DAILY 07/23/19 08/18/19 History voriconazole 200 mg tablet 200 mg PO Q12H #60 tab 08/09/19 08/18/19 Rx Patient History Medical History Cervicalgia (Chronic) Myofascial pain (Chronic) Cervical spondylosis (Chronic) Cervical spinal stenosis (Chronic) Cervicogenic headache (Chronic) Cervical facet syndrome (Chronic) Anxiety (Chronic) Arthritis (Chronic) Asthma (Chronic) Depression (Chronic) Gastroesophageal reflux (Chronic) Hypertension (Chronic) Surgical History History of cholecystectomy (Chronic) History of repair of right rotator cuff (Chronic) H/O arthroscopy of knee (Acute) bilateral knees H/O hemorrhoidectomy (Acute) Family History Other Family history non-contributory Social History Preferred Language: Dutch Communication Ability: Effective 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 Beliefs That Will Affect Care: None Current Living Situation: Spouse current occupational status: retired Feels Safe at Home: Yes Smoking Status: Never smoker Second Hand Exposure: No ; Hx Alcohol Use: No Hx Substance Use: No Review of Systems Constitutional: no problem reported Eyes: no problem reported Ear, Nose, Mouth, Throat: no problem reported Respiratory: no problem reported Cardiovascular: no problem reported Gastrointestinal: no problem reported Genitourinary: no problem reported Musculoskeletal: no problem reported Integumentary: no problem reported Neurologic: no problem reported Psychiatric: no problem reported Endocrine: no problem reported Hematologic / Lymphatic: no problem reported Allergy / Immunological: no problem reported Physical Exam Constitutional: well developed and well nourished; no acute distress Eyes: PERRL, conjunctivae normal, anicteric sclerae ENMT: external ear and nose normal, oropharynx normal Neck: trachea midline, no thyromegaly Respiratory: normal respiratory effort Auscultation: lungs clear to auscultation bilaterally Cardiovascular: RRR, no murmur, no edema Palpation: normal PMI; no thrill Gastrointestinal (Abdomen): normal bowel sounds, soft, nontender, no hepatosplenomegaly Musculoskeletal: no cyanosis or clubbing, extremities motor strength 5/5 Gait: normal gait Skin: no rashes, warm and dry Neurologic: PERRL, EOMI, accommodation nl, no face palsy, no dysarthria Psychiatric: A+Ox3, euthymic affect Lymphatic: no cervical or axillary lymphadenopathy Results & Data Vital Signs (Past 12 Hours) Vital Signs Temp Pulse Pulse Resp BP Pulse Ox 08/20/19 16:33 107 H 08/20/19 14:41 37.0 C 104 H 20 104/67 92 08/20/19 11:36 36.8 C 99 H 20 122/76 91 08/20/19 08:53 97 H 08/20/19 07:32 36.9 C 98 H 17 107/65 91 08/20/19 06:28 36.9 C 103 H 20 123/68 91 PG Care Time/CCT Total # of Minutes Spent Total Time Spent with Patient: Total time spent is greater than 50% in coordina tion of care (as documented) at patient's floor/unit and/or counseling patient:
[2019-08-20] MEDS: PANTOprazole 40 MG TAB PO SCH (18:07)
--- NOTE | 2019-08-20 19:59 | Hospitalist Progress Note ---
Date of Service August 20, 2019 Assessment & Plan (1) Metabolic encephalopathy: Resolved. CT head at admission negative. exact etiology uncertain. hyponatremia could have caused such. hypoglycemia could have contributed. some concern of voriconazole contributing but she has continued to get it while hospitalized and mental status normalized while on it. either way mental status is at baseline. (2) Visual hallucinations: Resolved. Some concern this could have been side effect from voriconazole. Reference [facility] lab of voriconazole trough pending (usually levels higher than 5.5 are associated with an encephalopathy and visual hallucinations). Spoke with Dr Gentile today -- he is recommending to stop the voriconazole at this time. (3) Gastroesophageal reflux: PPI had been held due to interaction with voriconazole. Since voriconazole has been stopped will resume PPI. Also add carafate 1gm QID. Has large hiatal hernia which will contribute to her GERD. 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 Had been treated for aspergillus with voriconazole. Dr Gentile consulted - in light of multiple pathogens growing from recent bronch (stenotrophamonas, aspergillus, and now mycobacterium) it is unclear which is truly pathogenic. Voriconazole and bactrim to be stopped for now. Appreciate Dr Gentile's consult. 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 Stopping bactrim for now. (6) Essential hypertension: Remains on Norvasc and hydralazine 25 mg p.o. twice daily w/ adequate control. (7) Hypoglycemia: resolved. had 2 documented readings <65. random cortisol is borderline at 6. consider cosyntropin stim test to r/o adrenal insufficiency. at minimum was eating poorly prior to admission which likely contributing to low glucose. (8) Mycobacterial infection: uncertain if truly pathogenic. defer management to Dr Gentile. (9) Hyponatremia: resolved. was likely hypotonic hyponatremia. currently on IV fluids; likely stop them by the am. bmp in am. (10) Constipation: add miralax with senna. (11) SHI (acute kidney injury): resolved was likely volume depleted at admission bmp am (12) DVT prophylaxis: heparin 5000 BID family updated at bedside PT/OT recommending rehab dispo planning Subjective pt overall feeling better. no further hallucinations. family at bedside - they report mental status is at baseline. main complaint is reflux - no response to maalox. no cough, no dyspnea. eating has been poor for several weeks or longer. willing to go to rehab if needed. Review of Systems Constitutional: no fever and no chills Respiratory: no cough Cardiovascular: no chest pain Gastrointestinal: + heartburn and + constipation; no abdominal pain and no vomiting Physical Exam Constitutional: no acute distress and no altered mental status ENMT: external ear and nose normal, oropharynx normal Respiratory: normal respiratory effort, lungs clear to auscultation Auscultation: no crackles and no wheezes Cardiovascular: Rate/Rhythm: regular rhythm and + tachycardic Heart Sounds: normal S1 and normal S2; no murmur Vessels: posterior tibial pulses present and dorsalis pedis pulses present; no JVD Extremities: no edema Gastrointestinal (Abdomen): normal bowel sounds, soft, nontender, no hepatosplenomegaly Psychiatric: A+Ox3, euthymic affect Results & Data Vital Signs (Past 12 Hours) Vital Signs Temp Pulse Pulse Resp BP Pulse Ox 08/20/19 18:59 36.9 C 107 H 17 114/68 92 08/20/19 16:33 107 H 08/20/19 14:41 37.0 C 104 H 20 104/67 92 08/20/19 11:36 36.8 C 99 H 20 122/76 91 08/20/19 08:53 97 H Laboratory Results Laboratory Results - last 24 hr 08/20/19 08/20/19 08/20/19 00:12 06:27 06:27 WBC 4.03 L RBC 3.36 L Hgb 10.5 L Hct 32.4 L MCV 96.4 MCH 31.3 MCHC 32.4 RDW Std Deviation 50.9 H RDW Coeff of Katya 14.3 Plt Count 267 MPV 8.5 Sodium 135 L Potassium 4.6 Chloride 104 Carbon Dioxide 23 Anion Gap 8.0 BUN 9 Creatinine 0.76 Est Cr Clr Drug Dosing 56.9 Est GFR ( Amer) 88.3 Est GFR (Non-Af Amer) 76.2 BUN/Creatinine Ratio 11.6 Glucose 73 POC Glucose 78 Estimat Average Glucose Hemoglobin A1c Calcium 8.4 L Random Cortisol 08/20/19 08/20/19 06:27 12:51 WBC RBC Hgb Hct MCV MCH MCHC RDW Std Deviation RDW Coeff of Katya Plt Count MPV Sodium Potassium Chloride Carbon Dioxide Anion Gap BUN Creatinine Est Cr Clr Drug Dosing Est GFR ( Amer) Est GFR (Non-Af Amer) BUN/Creatinine Ratio Glucose POC Glucose Estimat Average Glucose 131 Hemoglobin A1c 6.2 H Calcium Random Cortisol 6.63 PG Care Time/CCT Total # of Minutes Spent Total Time Spent with Patient: Total time spent is greater than 50% in coordination of care (as documented) at patient's floor/unit and/or counseling patient: (1) Gastroesophageal reflux Esophagitis presence: esophagitis presence not specified Qualified Code(s): K21.9 - Gastro-esophageal reflux disease without esophagitis (2) Constipation Constipation type: other constipation type Qualified Code(s): K59.09 - Other constipation
[2019-08-20] MEDS: LATANOPROST 0.005% OP SOLN 2.5 ML BTL OP SCH (20:28)
--- NOTE | 2019-08-21 01:50 | Consultation Report ---
DATE OF CONSULTATION: 08/20/2019 PULMONARY MEDICINE CONSULTATION REASON FOR CONSULTATION: Chronic bronchiectasis/metabolic encephalopathy. HISTORY OF PRESENT ILLNESS: This patient is a 74-year-old white female who was originally referred to me by Sudarshan Bernabe/physician ice cream freezer assistant with [facility] for bronchoscopic evaluation on 07/23/2019. At that time, the patient had a chronic cough for many months and carried with her the diagnosis of asthma for many years. Previous pulmonary function studies had revealed an FEV1/FVC ratio of 68% in 2011, but the patient did not have a recent PFT. CAT scan of the chest showed bronchiectatic changes, most prominently displayed in the right middle lobe but with also evidence of scattered micro nodularity and a large right-sided paraesophageal hernia. The patient has a chronic reflux history. Bronchoscopic examination showed right middle lobe mucoid impaction and she grew out Stenotrophomonas maltophilia from the bronchial washings with initial intermediate sensitivity to Levaquin and fully sensitive to Bactrim therapy. Levaquin, which has been started was switched to Bactrim and she completed a 10-day course. On 08/09/2019, the patient was started on Voriconazole 200 mg p.o. b.i.d. as she also grew out Aspergillus fumigatus from bronchial washings. The patient has not demonstrated peripheral eosinophilia and an IgE level was pending. 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 This is a rapidly growing Mycobacterium organism and is rarely a commensal or colonizing organism. The patient developed visual and auditory hallucinations, nausea with poor p.o. intake and apparently was encephalopathic on admission and hypoglycemic. Currently, the patient is well hydrated and normoglycemic but is complaining of reflux symptomatology. The patient was placed on Carafate q.i.d. as there was potentiation and interaction between Voriconazole and proton pump inhibitors. She was kept on Voriconazole during this admission. Hydralazine was started with discontinuance of her losartan, hydrochlorothiazide and her Norvasc dose was reduced. She does have 2-vessel coronary artery disease and a history of chronic sinusitis with allergic rhinitis. She has been on Symbicort inhaler and has a Combivent rescue inhaler at home. I was asked to see the patient in consultation. For details of past medical history, medications, family and social history, I refer you to current and past record. PHYSICAL EXAMINATION: GENERAL: Reveals a well-developed elderly white female, in no distress at rest from a respiratory standpoint. VITAL SIGNS: Blood pressure 104/67, pulse 98-107 and regular, respiratory rate 20, temperature 37 and O2 sat 92% on room air. SKIN: Without lesion. HEENT: Atraumatic and normocephalic. PERRLA. LUNGS: Distant P and A with some scattered rales in the right axillary region. CARDIAC: Regular rhythm. No murmurs or gallops. PMI nondisplaced. ABDOMEN: Soft. Scaphoid. No evidence of hepatosplenomegaly. EXTREMITIES: No pedal edema, clubbing or cyanosis. NEUROLOGIC: Intact. No lateralizing signs. LABORATORY DATA: Bronchial washings from 07/23/2019 grew out Aspergillus fumigatus, Stenotrophomonas maltophilia and Mycobacterium abscessus. Lumbar CAT scan on admission shows no acute lumbar spine fracture or subluxation, multilevel degenerative disease noted. White count of 4000, H and H of 10.5 and 32.4. Sodium 135 on admission. Glucose was 41 on admission. OVERALL ASSESSMENT: This patient is a 74-year-old with a history of asthma but with also chronic bronchiectasis growing out a polymicrobial set of organisms. The Mycobacterium abscessus is a rapid growing Mycobacterium and is rarely a colonizing organism and needs to be taken seriously. Unfortunately, this is a very difficult organism to treat requiring intravenous antibiotics in addition to p.o. antibiotics over the course of the year and usually (not always)results in surgical lung resection when indicated. The patient also has a right paraesophageal hernia that looks large and is giving her chronic reflux symptoms and could very well be contributing to chronic aspiration that led to chronic bronchiectasis. I doubt the patient is an adult cystic fibrosis patient, but a CF screen has been requested. At this point, I would stop Voriconazole and make sure the patient's p.o. intake is adequate and restart the proton pump inhibitor. We will need to address as an outpatient the organisms in question and also would consider surgical consultation with Dr. Erick Oleary for the right paraesophageal hernia. A video swallow may also be helpful to attest for the possibility of chronic aspiration from that hernia. Thank you very much for this consultation. DANE
[2019-08-21] MEDS: SODIUM CHLORIDE 0.9% 1000ML 1,000 ML IV SCH (04:06)
[2019-08-21 07:41] LABS: BUN Creatinine Ratio 15.2 (10-20); Calcium 8.5 mg/dl (8.5-10.1); Creatinine Clr Calc Pharmacy 65.1 ml/min; Est GFR (Non-African American) 85.4; Potassium 4.8 mmol/L (3.5-5.1)
[2019-08-21] MEDS: SUCRALFATE 1 GM/10 ML UDC PO SCH ×2 (08:32→12:13)
[2019-08-21] MEDS: BUDESONIDE/FORMOTEROL FUMARATE 160/4.5 60 PUFFS/INHALER INH SCH (08:33)
[2019-08-21] MEDS: AMLODIPINE BESYLATE 5 MG TAB PO SCH (08:33)
[2019-08-21] MEDS: HEPARIN SOD 5,000 UNIT/0.5 ML VIAL SQ SCH (08:33)
[2019-08-21] MEDS: PANTOprazole 40 MG TAB PO SCH (08:34)
[2019-08-21] MEDS: BuPROPion XL 300 MG TABCR PO SCH (08:34)
[2019-08-21] MEDS ORDERED: SENNA 8.6 MG TAB PO SCH (09:00)
[2019-08-21] MEDS ORDERED: POLYETHYLENE (MIRALAX) 17 GM PACK PO SCH (09:00)
--- NOTE | 2019-08-21 16:15 | Pulmonology Progress Note ---
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 Her sensorium is normal and her respiratory status is excellent. He has no cough. Her reflux symptoms have improved on a PPI now that the voriconazole has been discontinued. There is no question that the voriconazole led to a loosen a shins and nausea which in turn led to poor p.o. intake which in turn led to her hypoglycemia and metabolic enc ephalopathic condition. Did broach the subject of possible robotic video- assisted thorascopic surgery for repair of the right paraesophageal hernia and that an outpatient consultation with could be helpful. I suspect she may be chronically refluxing or even aspirating which led to the chronic bronchiectasis which in turn led to the polymicrobial infection diagnosed by bronchoscopy. We grew out Aspergillus fumigatus, stenotrophomonas maltophilia and mycobacterium abscessus. I am not convinced the latter needs to be treated although that organism is really a commensal or colonizing organism. And I have never seen it as a pathogen outside of the cystic fibrosis family. In any event I did speak with about discharging the patient. I do not believe she needs a rehab facility as she is ambulating freely and taking excellent p.o. intake. I have arranged for her to see me on August 29 and we will readdress her respiratory situation and the possible need for an outpatient video swallow and surgical consultation. (8) Metabolic encephalopathy: Subjective 74-year-old white female with history of asthma and chronic bronchiectasis and a large right paraesophageal hernia feels much better today. She is oriented no longer hallucinating. She is normoglycemic and well hydrated. Her blood pressure is under better control. She has no respiratory symptoms. We took her off voriconazole and Bactrim. She wishes to go home and does not feel she needs to go to a rehab facility. Review of Systems Constitutional: no problem reported Eyes: no problem reported Ear, Nose, Mouth, Throat: no problem reported Respiratory: no problem reported Cardiovascular: no problem reported Gastrointestinal: no problem reported Genitourinary: no problem reported Musculoskeletal: no problem reported Integumentary: no problem reported Neurologic: no problem reported Psychiatric: no problem reported Endocrine: no problem reported Hematologic / Lymphatic: no problem reported Allergy / Immunological: no problem reported Physical Exam Constitutional: well developed and well nourished; no acute distress Eyes: PERRL, conjunctivae normal, anicteric sclerae ENMT: external ear and nose normal, oropharynx normal Neck: trachea midline, no thyromegaly Respiratory: normal respiratory effort Auscultation: lungs clear to auscultation bilaterally Cardiovascular: RRR, no murmur, no edema Palpation: normal PMI; no thrill Gastrointestinal (Abdomen): normal bowel sounds, soft, nontender, no hepatosplenomegaly Musculoskeletal: no cyanosis or clubbing, extremities motor strength 5/5 Gait: normal gait Skin: no rashes, warm and dry Neurologic: PERRL, EOMI, accommodation nl, no face palsy, no dysarthria Psychiatric: A+Ox3, euthymic affect Lymphatic: no cervical or axillary lymphadenopathy Results & Data Vital Signs (Past 12 Hours) Vital Signs Temp Pulse Pulse Resp BP Pulse Ox 08/21/19 15:48 105 H 08/21/19 15:30 36.8 C 116 H 17 119/75 95 08/21/19 11:15 36.8 C 116 H 17 119/75 95 08/21/19 08:49 98 H 08/21/19 07:18 36.9 C 97 H 17 118/63 92 08/21/19 04:13 36.9 C 107 H 18 116/72 92 Laboratory Results Abnormal Labs 08/18/19 08/18/19 08/18/19 10:14 10:14 10:36 WBC 4.49 L RBC 3.81 L Hgb Hct 36.0 L RDW Std Deviation 48.4 H Lymph # (Auto) 0.62 L Sodium 127 L Chloride 94 L Carbon Dioxide Anion Gap Creatinine 1.23 H Glucose 61 L POC Glucose Hemoglobin A1c Calcium Total Protein Albumin Urine Appearance Cloudy A Urine Ketones Trace H Ur Leukocyte Esterase Trace H Urine WBC (Auto) 5-10 H U Epithel Cells (Auto) >30 H Urine Bacteria (Auto) 1+ H 08/19/19 08/19/19 08/19/19 07:54 07:54 09:24 WBC 3.82 L RBC 3.51 L Hgb 11.0 L Hct 33.8 L RDW Std Deviation 51.2 H Lymph # (Auto) 0.88 L Sodium 132 L Chloride Carbon Dioxide 19 L Anion Gap 12.0 H Creatinine Glucose 41 L* POC Glucose 225 H Hemoglobin A1c Calcium Total Protein 6.0 L Albumin 3.0 L Urine Appearance Urine Ketones Ur Leukocyte Esterase Urine WBC (Auto) U Epithel Cells (Auto) Urine Bacteria (Auto) 08/20/19 08/20/19 08/20/19 06:27 06:27 06:27 WBC 4.03 L RBC 3.36 L Hgb 10.5 L Hct 32.4 L RDW Std Deviation 50.9 H Lymph # (Auto) Sodium 135 L Chloride Carbon Dioxide Anion Gap Creatinine Glucose POC Glucose Hemoglobin A1c 6.2 H Calcium 8.4 L Total Protein Albumin Urine Appearance Urine Ketones Ur Leukocyte Esterase Urine WBC (Auto) U Epithel Cells (Auto) Urine Bacteria (Auto) Medications Administered Current Inpatient Medications Acetaminophen (Tylenol) 650 mg PO Q4H PRN PRN Reason: Pain or Fever Stop: 09/17/19 13:23 Last Admin: 08/18/19 21:04 Dose: 650 mg Documented by: Al Hydrox/Mg Hydrox/Simethicone (Maalox) 15 ml PO Q4H PRN PRN Reason: Dyspepsia Stop: 09/17/19 13:23 Last Admin: 08/20/19 08:25 Dose: 15 ml Documented by: Albuterol (Ventolin Hfa) 2 puffs INH Q4H PRN PRN Reason: shortness of breath Stop: 09/17/19 12:49 Amlodipine Besylate (Norvasc) 5 mg PO DAILY SANAM Stop: 09/18/19 08:59 Last Admin: 08/21/19 08:33 Dose: 5 mg Documented by: Budesonide/Formoterol Fumarate (Symbicort 160mcg/4.5mcg) 2 puffs INH BID SANAM Stop: 09/17/19 20:59 Last Admin: 08/21/19 08:33 Dose: 2 puffs Documented by: Bupropion HCl (Wellbutrin-Xl) 300 mg PO QAM SANAM Stop: 09/18/19 08:59 Last Admin: 08/21/19 08:34 Dose: 300 mg Documented by: Heparin Sodium (Porcine) (Heparin Sodium (Porcine)) 5,000 units SQ Q12 SANAM Stop: 09/17/19 20:59 Last Admin: 08/21/19 08:33 Dose: 5,000 units Documented by: Hydralazine HCl (Apresoline) 25 mg PO Q12@0600,1800 SANAM Stop: 09/17/19 17:59 Last Admin: 08/21/19 05:22 Dose: 25 mg Documented by: Latanoprost (Xalatan Oph) 1 drops OP HS SANAM Stop: 09/17/19 20:59 Last Admin: 08/20/19 20:28 Dose: 1 drops Documented by: Lorazepam (Ativan) 1 mg PO HS PRN PRN Reason: sleep Stop: 09/17/19 12:49 Pantoprazole Sodium (Protonix) 40 mg PO QAM SANAM Stop: 09/19/19 16:59 Last Admin: 08/21/19 08:34 Dose: 40 mg Documented by: Polyethylene Glycol (Miralax Powder Packet) 17 gm PO DAILY SANAM Stop: 09/20/19 08:59 Last Admin: 08/21/19 08:32 Dose: Not Given Documented by: Sennosides (Senokot) 17.2 mg PO QAM SANAM Stop: 09/20/19 08:59 Last Admin: 08/21/19 08:32 Dose: Not Given Documented by: Sucralfate (Carafate) 1 gm PO QID SANAM Stop: 09/19/19 12:59 Last Admin: 08/21/19 12:13 Dose: 1 gm Documented by: Tramadol HCl (Ultram) 50 mg PO Q4H PRN PRN Reason: Pain Stop: 09/18/19 09:00 Last Admin: 08/20/19 08:25 Dose: 50 mg Documented by: PG Care Time/CCT Total # of Minutes Spent Total Time Spent with Patient: Total time spent is greater than 50% in sales training coordinator rdination of care (as documented) at patient's floor/unit and/or counseling patient:
--- NOTE | 2019-08-28 06:05 | Discharge Summary ---
Date of Service date of admission - August 18, 2019 date of discharge - August 21, 2019 Admission HPI Per Admitting Provider 74 year old female with past medical history of essential hypertension, GERD, asthma, depression, and anxiety. Recently, due to chronic cough, she had an o utpatient work-up with a CT scan chest that showed bronchiectatic changes in basilar lung field with scattered micro-nodularity. Patient saw Dr. Gentile in the office status post fiberoptic bronchoscopy exam on 07/23 that revealed stenotrophomonas AND aspergillus which raised concern for allergic bronchopulmonary aspergillosis versus chronic nodular aspergillosis although the latter seems to be less likely putting her clinical picture into the context. Patient appropriately was placed on levofloxacin initially but because of the sensitivity of the stenotrophomonas (intermediate to Levaquin) she was switched to Bactrim which she will finish tomorrow. She was also placed on voriconazole 200 mg twice daily for the aspergillus. Unfortunately she slowly started developing generalized weakness and visual hallucinations along with confusion hence she was brought to the [facility] ER. Principal Diagnosis encephalopathy, likely combination of metabolic & toxic factors Discharge Exam Constitutional no acute distress and no altered mental status ENMT external ear and nose normal, oropharynx normal Respiratory normal respiratory effort, lungs clear to auscultation Auscultation: no crackles and no wheezes Cardiovascular Rate/Rhythm: regular rhythm and + tachycardic Heart Sounds: normal S1 and normal S2; no murmur Vessels: posterior tibial pulses present and dorsalis pedis pulses present; no JVD Extremities: no edema Gastrointestinal (Abdomen) normal bowel sounds, soft, nontender, no hepatosplenomegaly Psychiatric A+Ox3, euthymic affect Discharge Data Allergies Allergy/AdvReac Type Severity Reaction Status Date / Time lisinopril Allergy Intermediate COUGH Verified 08/27/19 11:44 Penicillins Allergy Intermediate RASH Verified 08/27/19 11:44 adhesive Allergy Mild ITCHING Verified 08/27/19 11:44 WITH EXTENDED USE Sulfa (Sulfonamide Allergy Mild RASH Verified 08/27/19 11:44 Antibiotics) Consultations pulmonology - Dr Dwight Gentile PT, OT Ordered Studies CT head - no acute process CT lumbar spine - IMPRESSION: 1. No acute lumbar spine fracture or subluxation. 2. Multilevel degenerative changes within the lumbar spine, as described above. CT pelvis - IMPRESSION: 1. No acute fracture within the pelvis or hips. 2. Minimal infiltration within the right thigh which may reflect edema or a small contusion. Chest x-ray - clear lungs, large hiatal hernia. Hospital Course (1) Metabolic encephalopathy: Resolved. CT head at admission negative. Suspect combination of factors including metabolic & toxic effects. Hyponatremia could have caused such. Hypoglycemia could have contributed. Some concern of voriconazole contributing but she continued to receive it while hospitalized and mental status normalized while still on it. Voriconazole level had been sent but since it is a reference lab it would return post-discharge. Mental status returned to baseline. (2) Visual hallucinations: Resolved. Some concern this could have been side effect from voriconazole. Reference [facility] lab of voriconazole trough pending (usually levels higher than 5.5 are associated with an encephalopathy and visual hallucinations). In light of uncertainty if patient indeed has aspergillosis and given the concern of voriconazole side effects Dr Gentile recommended discontinuation of voriconazole. (3) Hyponatremia: Resolved. Was likely hypotonic hyponatremia due to poor oral intake in the days leading up to admission as well as chronic use of HCTZ. Initial sodium level was 127, improving to 137 by discharge. Na level corrected with isotonic fluids. Suspect the hyponatremia contributed to confusion at home as her sodium level had been normal (135) in June 2019. (4) Gastroesophageal reflux: Severe. Continue PPI daily. Her omeprazole was INCREASED to 40mg/day. Gave prescription for carafate 1gm QID prn. Has large hiatal hernia which will contribute to her GERD. Dr Gentile feels she should have outpatient video swallow test to ensure that GERD is not contributing to chronic cough. He also feels she should have a consult with surgery for the hiatal hernia. (5) Allergic bronchopulmonary aspergillosis: Concern of such / questionable. Had been treated for aspergillus with voriconazole prior to admission. Dr Gentile from pulmonary was consulted - in light of multiple pathogens growing from recent bronch (stenotrophamonas, aspergillus, and now mycobacterium) it is unclear which is truly pathogenic. THUS - he advised discontinuation of BOTH voriconazole and bactrim for now. He will see her in his office shortly after discharge to determine the next steps for her pulmonary care. (6) Infection with Stenotrophomonas maltophilia resistant to multiple drugs: See above in "ABPA". Stopping bactrim for now. (7) Mycobacterial infection: This organism grew from recent bronch cultures. uncertain if truly pathogenic as she also grew aspergillus and stenotrophomonas. She did NOT receive mycobacterium treatment while hospitalized. Dr Gentile to see her in follow-up post-discharge to determine if treatment, if any, is necessary. (8) Essential hypertension: Losartan-HCTZ was stopped while hospitalized. She was continued on amlodipine. BPs were controlled with monotherapy with norvasc only. At discharge, especially in light of recent hyponatremia, she was asked to continue HOLDING her ARB-HCTZ combo pill. (9) Constipation: Continue miralax +/- senna. (10) SHI (acute kidney injury): resolved was likely volume depleted at admission Cr 1.2 at admission, improving to 0.6 at discharge (11) Hypoglycemia: resolved. had 2 documented readings <65. random cortisol was borderline at 6. consider cosyntropin stim test as outpatient to r/o adrenal insufficiency if she were to continue having low glucose levels. at minimum was eating poorly prior to admission which likely contributed to low glucose. Total Time Total Time Spent Total Time Spent (In Minutes): 45 Total Time Includes: Examination of the Patient, Discharge Planning, Medication Reconciliation and Communication With Other Providers Discharge Plan Discharge Items Patient Disposition: Home - Home Health Services Reason For Visit: Confusion; hallucinations Discharge Diagnosis: 1. confusion, hallucinations - resolved. Likely related to low sodium in the blood, low sugar, and potentially the voriconazole anti-fungal medication you had been taking. 2. severe heartburn. 3. hiatal hernia. 4. recent bronchoscopy by Dr Gentile with multiple organisms that grew from the cultures - final course to be determined as an outpatient. Goals: 1. resolve the confusion 2. improve the low blood sugar 3. improve the low sodium level Activity: As commented below Activity Comment: gradually increase your activities over the next few days as tolerated Non-emergency contact: Primary Care Provider and Aircraft Refueler Call non-emergency contact if: you have any medication questions, your symptoms worsen and you have a fever Follow-up/Referrals: Matthew Gentile MD [Physician] - 08/29/19 (please call Dr Gentile's office to confirm your appointment for 08/29/19 ) Cirilo Macias MD [Primary Care Provider] - 08/27/19 11:30 am (Please, follow up with Dr. Macias on TuesdayAugust 27 at 11:30 am. *If you need to change this appointment, call the office at [phone].) Diet: Regular Addtl Attending Provider Instructions: You were treated for confusion, hallucinations, weakness, dehydration, low sugar, low sodium, and poor appetite at [facility]. All of these issues either improved and/or resolved. Your sodium and sugar levels normalized. The low sodium as well as the voriconazole may have caused many of your presenting symptoms. Dr Gentile from pulmonary saw you in consult. At this time he recommended that you STOP the voriconazole and STOP the bactrim antibiotics. At your follow-up appointment with him he will try to determine what organisms from the bronchoscopy, if any, need to be treated. He is also likely going to recommend some additional tests and/or referrals for your hiatal hernia and reflux disease. Recommendations: 1. STOP your voriconazole. 2. STOP your losartan-HCTZ blood pressure medication for now. Your blood pressures were NORMAL despite not taking this medication while hospitalized. 3. STOP your bactrim (sulfa) antibiotic. 4. INCREASE your omeprazole to 40mg once every morning. new script provided. 5. May take sucralfate 1gm before meals & at bedtime as needed for heartburn/reflux symptoms. script provided. Follow-up - see separate section Return to [facility] if -- * you have fever over 100.5 degrees * you have worsening shortness of breath * you have confusion * you have dizziness or lightheadedness * any other concerns Pending Studies at Discharge: No Stand-Alone Forms: My [facility] Medications and DC Order Prescriptions: New omeprazole 40 mg capsule,delayed release(DR/EC) 40 mg PO DAILY Qty: 30 RF: 5 Continued latanoprost [Xalatan] 0.005 % drops 1 drops OP HS RF: 0 bupropion HCl 300 mg tablet extended release 24 hr 300 mg PO QAM Qty: 90 RF: 3 Symbicort 160-4.5 mcg/actuation HFA aerosol inhaler 2 puffs INH BID Qty: 10.2 RF: 3 albuterol sulfate [ProAir HFA] 90 mcg/actuation HFA aerosol inhaler 2 puffs INH Q4H PRN (Reason: shortness of breath) Qty: 18 RF: 5 Discontinued losartan-hydrochlorothiazide [Hyzaar] 100-25 mg tablet 1 tab PO DAILY Qty: 90 RF: 3 voriconazole 200 mg tablet 200 mg PO Q12H Qty: 60 RF: 1 No Action amlodipine [Norvasc] 10 mg tablet 10 mg PO DAILY Qty: 90 RF: 3 lorazepam 1 mg tablet 1 mg PO DAILY PRN (Reason: insomnia) Qty: 90 RF: 1 Discharge Orders: Discharge Order (Routine); Ordered 08/21/19 Ordered By: Vinh Tanner/Other Patient Handouts: Prediabetes, Diabetes Meal Planning Admission Data Admit Date/Time: 08/18/19 13:25 Attending Provider: Vinh Simmons Admit Provider: Maricarmen Sheldon Primary Care Provider: Cirilo Macias Other Providers: Maricarmen Sheldon ; Matthew Gentile Other Interventions: Discharge Summary Assessment (RN) Last Done: 08/21/19 16:28 DC Date/Time DO NOT enter until pt leaves facility: 08/21/19 16:52
== END 2019-08-21 16:52 | disposition home health service (06) | DRG 682 ==
LOC: ED 09:37 → 2N 13:25 → SUATTDRO 13:25 → 2N 14:22
DX: Z16.35 Resistance to multiple antimicrobial drugs; E87.1 Hypo-osmolality and hyponatremia; J47.9 Bronchiectasis, uncomplicated; J45.909 Unspecified asthma, uncomplicated; M54.5 Low back pain; B96.89 Other specified bacterial agents as the cause of diseases classified elsewhere; W19.XXXA Unspecified fall, initial encounter; E16.2 Hypoglycemia, unspecified; N17.9 Acute kidney failure, unspecified; E86.0 Dehydration; I10 Essential (primary) hypertension; K59.00 Constipation, unspecified; Y92.009 Unspecified place in unspecified non-institutional (private) residence as the place of occurrence of the external cause; B44.81 Allergic bronchopulmonary aspergillosis; K21.9 Gastro-esophageal reflux disease without esophagitis; G93.41 Metabolic encephalopathy

== ENCOUNTER 2020-07-18 05:09 | Inpatient (IN) ==
--- NOTE | 2020-06-13 16:15 | PAT Medication Instructions ---
Medication Instructions Date of Service June 13, 2020 Home Medications Medication Instructions Recorded budesonide-formoterol HFA 160 2 puffs INH BID #10.2 gm 06/01/19 mcg-4.5 mcg/actuation aerosol inhaler albuterol sulfate 90 mcg/actuation 2 puffs INH Q4H PRN #18 gm 07/05/19 aerosol inhaler lorazepam 1 mg tablet 1 mg PO DAILY PRN #90 tab 04/07/20 hydrocodone 5 mg-acetaminophen 325 1 tab PO Q6H PRN #20 tab 06/05/20 mg tablet fluoxetine 10 mg capsule 10 mg PO DAILY #90 cap 06/11/20 latanoprost 0.005 % eye drops 1 drops OP HS budesonide-formoterol HFA 160 mcg-4.5 mcg/actuation aerosol inhaler 2 puffs INH BID albuterol sulfate 90 mcg/actuation aerosol inhaler 2 puffs INH Q4H PRN lorazepam 1 mg tablet 1 mg PO DAILY PRN amlodipine [Norvasc] 10 mg PO QPM cyanocobalamin (vitamin B-12) 500 mcg PO DAILY losartan-hydrochlorothiazide 1 tab PO QAM omeprazole 40 mg PO QAM trazodone 50 mg PO HS PRN hydrocodone 5 mg-acetaminophen 325 mg tablet 1 tab PO Q6H PRN acetaminophen [Tylenol Extra Strength] 1,000 mg PO UD fluoxetine 10 mg capsule 10 mg PO DAILY DO NOT take the morning of surgery cyanocobalamin (vitamin B-12) 500 mcg PO DAILY losartan-hydrochlorothiazide 1 tab PO QAM Take morning of surgery With a small sip of water, OTHERWISE NOTHING TO EAT OR DRINK AFTER MIDNIGHT: budesonide-formoterol HFA 160 mcg-4.5 mcg/actuation aerosol inhaler 2 puffs INH BID albuterol sulfate 90 mcg/actuation aerosol inhaler 2 puffs INH Q4H PRN (use if needed; please bring with you to hospital day of surgery if possible) lorazepam 1 mg tablet 1 mg PO DAILY PRN (if needed) omeprazole 40 mg PO QAM hydrocodone 5 mg-acetaminophen 325 mg tablet 1 tab PO Q6H PRN (okay to take up to 4 hours prior to surgery if needed) acetaminophen [Tylenol Extra Strength] 1,000 mg PO UD (okay to take up to 4 hours prior to surgery if needed) fluoxetine 10 mg capsule 10 mg PO DAILY Take evening before surgery latanoprost 0.005 % eye drops 1 drops OP HS albuterol sulfate 90 mcg/actuation aerosol inhaler 2 puffs INH Q4H PRN (if needed) lorazepam 1 mg tablet 1 mg PO DAILY PRN (if needed) amlodipine [Norvasc] 10 mg PO QPM trazodone 50 mg PO HS PRN (if needed) hydrocodone 5 mg-acetaminophen 325 mg tablet 1 tab PO Q6H PRN (if needed) acetaminophen [Tylenol Extra Strength] 1,000 mg PO UD (if needed) Other Notes If you have any questions please call us at [phone] or [phone] or [phone] or [phone]
--- NOTE | 2020-06-17 11:24 | Anesthesiology Consultation ---
Date of Service June 17, 2020 Assessment & Plan (1) Encounter for pre-operative examination: Per PAT assessment on 06/17: Travel screen negative. No known COVID-19 positive contacts. No current COVID-19 related symptoms. Preop COVID testing 05/22 (prior to EGD/colonoscopy) was negative. Surgeon arranging preop COVID testing. Awaiting results. - PCP office visit: 06/11/20: "For the R shoulder pain to have total R shoulder replacement on July 18, [address] Barry. With available information there are no contraindications to proceeding with surgery with precautions mentioned below." - Pulmonary office visit: 06/04/20: "She has a significant hiatal hernia which I believe has contributed to her respiratory or pulmonary symptoms with GERD and probable chronic aspiration.. Do not believe that the hiatal hernia is giving her pinpoint right rib or intercostal pain at the level of the ribs and costochondral junction. Could be related to her trauma a year ago or represent intercostal neuralgia from chronic cough. Both agreed that a referral to the pain clinic could be helpful if this area is injected. I have given her prescription for hydrocodone 5/325. Gabapentin has been poorly tolerated in the past. I believe a laparoscopic Silvano fundoplication for the hiatal hernia is warranted from a pulmonary standpoint if we can get relief of that right rib pain. I believe following this in recovery that right shoulder arthroplasty could then be scheduled with Dr. Spencer Barry. Tentatively scheduled for July 28 and possible that that date can be maintained." - S/P EGD/colonoscopy: 05/27/20: MAC sedation at [facility] Chart Review Chart Review: Acceptable Risk for Surgery (pending evaluation AM DOS) and Patient seen in Pre Admission Testing Teaching & Discussion Pre-Anesthesia Teaching/Discussion Notes: Instructed NPO after midnight before surgery,except medications with 15 cc of water. Medication instructions provided according to the PAT guidelines. History Surgery Operation Date: 07/18/20 08:30 Proposed Procedures p Right Reverse Total Shoulder Arthroplasty - Spencer Barry DO Height/Weight Height: 5 ft 4 in Weight: 60.4 kg Allergies Allergy/AdvReac Type Severity Reaction Status Date / Time DEMIAN Inhibitors Allergy Unknown hallucinati Verified 06/17/20 11:22 ons Penicillins Allergy Unknown Hives Verified 06/11/20 13:39 ranitidine [From Zantac] Allergy Unknown Unknown Verified 06/11/20 13:39 Sulfa (Sulfonamide Allergy Unknown rash Verified 06/17/20 11:22 Antibiotics) valsartan [From Diovan] Allergy Unknown Unknown Verified 06/11/20 13:39 verapamil [From Covera-HS] Allergy Unknown Unknown Verified 06/11/20 13:39 BOWEL PREP AdvReac Unknown vomiting, Uncoded 06/17/20 11:45 syncope Medications Home Medications Medication Instructions Recorded Confirmed Last Taken latanoprost 0.005 % eye drops 1 drops OP HS ml 08/21/18 06/11/20 05/26/20 budesonide-formoterol HFA 160 2 puffs INH BID #10.2 gm 06/01/19 06/11/20 08/17/19 mcg-4.5 mcg/actuation aerosol inhaler albuterol sulfate 90 mcg/actuation 2 puffs INH Q4H PRN #18 gm 07/05/19 06/11/20 05/26/20 aerosol inhaler lorazepam 1 mg tablet 1 mg PO DAILY PRN #90 tab 04/07/20 06/11/20 05/27/20 amlodipine [Norvasc] 10 mg PO QPM 05/19/20 06/11/20 05/26/20 cyanocobalamin (vitamin B-12) 500 mcg PO DAILY 05/19/20 06/11/20 05/26/20 losartan-hydrochlorothiazide 1 tab PO QAM 05/19/20 06/11/20 05/27/20 omeprazole 40 mg PO QAM 05/19/20 06/11/20 05/27/20 trazodone 50 mg PO HS PRN 05/19/20 06/11/20 Unknown hydrocodone 5 mg-acetaminophen 325 1 tab PO Q6H PRN #20 tab 06/05/20 06/11/20 Unknown mg tablet acetaminophen [Tylenol Extra 1,000 mg PO UD 06/10/20 06/11/20 Unknown Strength] fluoxetine 10 mg capsule 10 mg PO DAILY #90 cap 06/11/20 06/11/20 Unknown Past Medical History Medical History Anxiety Arthritis (Chronic) Asthma (Chronic) stable Cervical spinal stenosis Cervical spondylosis Depression Diarrhea chronic s/p nacho Fibromyalgia GERD (gastroesophageal reflux disease) Glaucoma Hiatal hernia large History of basal cell carcinoma History of pneumothorax post-op lung biopsy, chest tube inserted History of rheumatic fever as a child Hypertension (Chronic) Low iron under surveillance s/p iron infusion (04/2020) Pain "nerve pain" from 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 Gentile) and general surgery (Dr. Yates/referred to pain clinic Exercise / Class Metabolic Activity III < 4 Walking/Shop/Light housework Past Family History Family History Mother Hypertension Father Hypertension Other Family history non-contributory No family history of adverse response to anesthesia Past Surgical History Surgical History H/O arthroscopy of knee (Acute) Right knee H/O chest tube placement (03/02/09) By Dr. Yates, patient had lung biopsy in [place] and developed a pneumo, #20 chest tube inserted H/O hemorrhoidectomy (Acute) History of basal cell carcinoma (BCC) excision History of cardiac cath - NO FINDINGS/NO STENT(S) History of cholecystectomy (Chronic) History of colonoscopy History of D&C History of esophagogastroduodenoscopy (EGD) History of hemorrhoidectomy History of repair of right rotator cuff (Acute) X2 History of tooth extraction Status post bronchoscopy with bronchoalveolar lavage Past Anesthesia History No Hx of Anesthesia Complications and No Family Hx of Anesthesia Complications History of PONV No Hx of PONV and No Hx of Motion Sickness Social History Smoking Status: Never smoker Do You Dip or Chew Tobacco: No Hx Alcohol Use: Yes Alcohol type: wine alcohol intake frequency: 0-2 drinks per day (0-1 glass wine/day) Hx Substance Use: No substance use type: does not use Review of Systems + chronic cough, unchanged (follows with pulmonary). Patient denies chest pain, shortness of breath, fever, palpitations. Physical Exam Vital Signs VITALS BP 150/77 P 69 TEMP 98.3 SP02 97%RA RESP 16 PHYSICAL Full neck and c-spine range of motion. Full TMJ range of motion. TMD 3 finger breaths Mallampati Score 2 Dentition: full dentures upper/lower Lungs: + rhonchi in lower lung base Cardiac: regular rate and rhythm, no murmurs noted Spine: normal Carotid arteries: negative bruit Extremities: no edema Testing Laboratory Results 06/17/20 12:02 06/17/20 12:00 PT 10.3 Seconds (9.0-12.0) 06/17/20 12:02 INR 1.0 (0.9-1.1) 06/17/20 12:02 APTT 27.3 Seconds (21.0-31.0) 06/17/20 12:02 Blood Type O Positive 06/17/20 12:02 Antibody Screen NEGATIVE 06/17/20 12:02 Electrocardiogram Date: 08/18/19 NSR at 100bpm. Possible LAE. LAD. Septal infarct. NS IVCD. Compared to 04/30/19 EKG, "similar findings" per accounts payable bookkeeper review. Patient s/p ECHO 06/2019* Chest X-Ray Date: 10/29/19 Subtle bilateral reticulonodular opacities are suggestive of a nonspecific pneumonitis/bronchiolitis with similar appearing findings noted on comparison chest CT from 07/19/2019. Cardiomegaly. Large hiatal hernia. Subsequently evaluated preoperatively by both PCP/pulmonary 05/2020* Echocardiogram Date: 07/24/19 EF 50-55%. No RWMA. Grade I DD. No significant valvular disease.
[2020-06-17 13:10] LABS: Basophils # (auto) 0.02 K/uL (0-0.2); Basophils % (auto) 0.4 %; Eosinophils # (auto) 0.06 K/uL (0-0.5); Eosinophils % (auto) 1.2 %; Hematocrit (blood only) 38.6 % (37-47); Hemoglobin 12.4 g/dL (12.0-16.0); Lymphocytes # (auto) 1.38 K/uL (1.2-3.4); Lymphocytes % (auto) 28.6 %; Mean Corpuscular Hemoglobin 32.3 pg (25-34); Mean Corpuscular Hgb Conc 32.1 g/dL (32-36); Mean Corpuscular Volume 100.5 fL (80-100); Mean Platelet Volume 8.5 fL (7.4-10.4); Monocytes # (auto) 0.36 K/uL (0.11-0.59); Monocytes % (auto) 7.5 %; Neutrophils # (auto) 3.01 K/uL (1.4-6.5); Neutrophils % (auto) 62.3 %; Platelet Count 255 K/uL (130-400); RDW Coefficient of Variation 13.4 % (11.5-14.5); RDW Standard Deviation 49.5 fL (36.4-46.3); Red Blood Count 3.84 M/uL (4.2-5.4); White Blood Count 4.83 K/uL (4.8-10.8)
[2020-06-17 13:34] LABS: Partial Thromboplastin Time 27.3 Seconds (21.0-31.0); Prothrombin Time 10.3 Seconds (9.0-12.0)
[2020-06-17 14:01] LABS: BUN Creatinine Ratio 14.9 (10-20); Calcium 9.7 mg/dl (8.5-10.1); Creatinine Clr Calc Pharmacy 46.8 ml/min; Est GFR (African American) 74.5; Est GFR (Non-African American) 64.3; Potassium 3.7 mmol/L (3.5-5.1)
--- NOTE | 2020-07-17 12:08 | History & Physical Report ---
Date of Service July 17, 2020 Assessment & Plan (1) Rotator cuff arthropathy: We will proceed with a right reverse shoulder arthroplasty. Postoperatively she will be placed in a sling and kept overnight in the hospital for postoperative medical management. She plans to use energy physical therapy upon discharge. Present on Admission?: Yes History of Present Illness Chief Complaint: Rotator cuff arthropathy of the right shoulder Primary Care Provider: Cirilo Macias MD Joselyn is a pleasant 75-year-old female who is been dealing with chronic increasing right shoulder pain and weakness. Is been hurting for a couple of years. It was exasperated recently when she was down in [place] and fell between a rock ledge in her home. She can barely move her shoulder. 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 After failing conservative treatment, she elected to proceed with a right reverse shoulder arthroplasty. Allergies Allergy/AdvReac Type Severity Reaction Status Date / Time DEMIAN Inhibitors Allergy Unknown hallucinati Verified 07/04/20 08:40 ons Penicillins Allergy Unknown Hives Verified 07/04/20 08:40 ranitidine [From Zantac] Allergy Unknown Unknown Verified 07/04/20 08:40 Sulfa (Sulfonamide Allergy Unknown rash Verified 07/04/20 08:40 Antibiotics) valsartan [From Diovan] Allergy Unknown Unknown Verified 07/04/20 08:40 verapamil [From Covera-HS] Allergy Unknown Unknown Verified 07/04/20 08:40 BOWEL PREP AdvReac Unknown vomiting, Uncoded 07/04/20 08:40 syncope Home Medications Home Medications Medication Instructions Recorded Confirmed Type latanoprost 0.005 % eye drops 1 drops OP HS ml 08/21/18 07/04/20 History budesonide-formoterol HFA 160 2 puffs INH BID #10.2 gm 06/01/19 07/04/20 Rx mcg-4.5 mcg/actuation aerosol inhaler albuterol sulfate 90 mcg/actuation 2 puffs INH Q4H PRN #18 gm 07/05/19 07/04/20 Rx aerosol inhaler lorazepam 1 mg tablet 1 mg PO DAILY PRN #90 tab 04/07/20 07/04/20 Rx cyanocobalamin (vitamin B-12) 500 mcg PO DAILY 05/19/20 07/04/20 History losartan-hydrochlorothiazide 1 tab PO QAM 05/19/20 07/04/20 History omeprazole 40 mg PO QAM 05/19/20 07/04/20 History trazodone 50 mg PO HS PRN 05/19/20 07/04/20 History hydrocodone 5 mg-acetaminophen 325 1 tab PO Q6H PRN #20 tab 06/05/20 07/04/20 Rx mg tablet acetaminophen [Tylenol Extra 1,000 mg PO UD 06/10/20 07/04/20 History Strength] gabapentin 100 mg capsule 100 mg PO BID #60 cap 07/04/20 07/04/20 Rx amlodipine 10 mg tablet 10 mg PO QPM #90 tab 07/07/20 Rx Past Med/Surg History Medical History Anxiety Arthritis Asthma stable Cervical spinal stenosis Cervical spondylosis Depression Diarrhea chronic s/p nacho Fibromyalgia GERD (gastroesophageal reflux disease) Glaucoma Hiatal hernia large History of basal cell carcinoma History of pneumothorax post-op lung biopsy, chest tube inserted History of rheumatic fever as a child Hypertension Intercostal neuralgia Low iron under surveillance s/p iron infusion (04/2020) Pain "nerve pain" from 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 Gentile) and general surgery (Dr. Yates/referred to pain clinic Surgical History H/O arthroscopy of knee Right knee H/O chest tube placement (03/02/09) By Dr. Yates, patient had lung biopsy in [place] and developed a pneumo, #20 chest tube inserted H/O hemorrhoidectomy History of basal cell carcinoma (BCC) excision History of cardiac cath - NO FINDINGS/NO STENT(S) History of cholecystectomy History of colonoscopy History of D&C History of esophagogastroduodenoscopy (EGD) History of hemorrhoidectomy History of repair of right rotator cuff X2 History of tooth extraction Status post bronchoscopy with bronchoalveolar lavage Family History Mother Hypertension Father Hypertension Other Family history non-contributory No family history of adverse response to anesthesia Social History Smoking Status: Never smoker Second Hand Exposure: No; Hx Alcohol Use: Yes Alcohol type: wine Hx Substance Use: No Preferred Language: Mongolian Communication Ability: Effective Postal Service Mail Processor Required: No Beliefs That Will Affect Care: None marital status: Current Living Situation: Spouse 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 Safe at Home: Yes Review of Systems Review of Systems: All systems reviewed & are unremarkable except as noted in HPI & below Physical Exam Constitutional: WD/WN, vitals as above Eyes: PERRL, conjunctivae normal, anicteric sclerae ENMT: external ear and nose normal, oropharynx normal Neck: trachea midline, no thyromegaly Respiratory: normal respiratory effort Cardiovascular: RRR, no murmur, no edema Gastrointestinal (Abdomen): normal bowel sounds, soft, nontender, no hepatosplenomegaly Musculoskeletal: Physical examination of the right shoulder reveals decreased range of motion and significant weakness. There is tenderness palpation along the anterior glenohumeral joint line. The right upper extremity is neurovascularly intact. Psychiatric: A+Ox3, euthymic affect Results & Data Results & Data ([facility]) Diagnostic Findings Radiographs of the right shoulder show some signs of osteoarthritis with blunting of the greater tuberosity and some superior migration of the humeral head on the glenoid. PG Care Time/CCT Total # of Minutes Spent Total Time Spent with Patient: Total time spent is greater than 50% in coordination of care (as documented) at patient's floor/unit and/or counseling patient: Coding Level of Care Code 98760 Initial Inpt Care Lvl 2 Diagnoses Rotator cuff arthropathy M12.819
[2020-07-18] MEDS ORDERED: BUPIVACAINE 0.5 % 5 MG/1 ML PF 10ML VIAL ONE (05:41)
[2020-07-18] MEDS ORDERED: FAMOTIDINE 20 MG TAB PO SCH (06:00)
[2020-07-18] MEDS ORDERED: LR 15ML/HR IV SCH (06:00)
[2020-07-18] MEDS ORDERED: TRANEXAMIC ACID 1,000 MG **IV Pre-op IV SCH (06:00)
[2020-07-18] MEDS ORDERED: dexAMETHasone 4 MG TAB PO SCH (06:00)
[2020-07-18] MEDS ORDERED: GABAPENTIN 300 MG CAP PO SCH (06:00)
[2020-07-18] MEDS ORDERED: TRANEXAMIC ACID 1,000 MG **IV Intra-op IV SCH (06:00)
[2020-07-18] MEDS ORDERED: CEFAZOLIN 1000MG 1,000 MG/7.5 ML SYR IV SCH (06:00)
[2020-07-18] MEDS ORDERED: ACETAMINOPHEN 500 MG TAB PO SCH (06:00)
[2020-07-18] MEDS ORDERED: ROPIVACAINE 0.5% HCL/PF 150 MG, BUPIVACAINE 0.5% MPF 30 ML, EPINEPHrine 30MG/30ML (OR U... INSTIL SCH (06:00)
[2020-07-18] MEDS ORDERED: LR 60ML/HR IV SCH (06:00)
[2020-07-18] MEDS ORDERED: ORTHO JOINT ANESTHETIC ONE (06:39)
[2020-07-18] MEDS ORDERED: GLYCOPYRROLATE 0.2 MG/ML VIAL ONE (06:44)
[2020-07-18] MEDS ORDERED: LIDOCAINE HCL 2% 2 ML VIAL/AMP(20MG/ML) INFIL ONE (06:44)
[2020-07-18] MEDS ORDERED: NEOSTIGMINE METHYLSULFATE 5 MG/5 ML SYR ONE (06:44)
[2020-07-18] MEDS ORDERED: MIDAZOLAM HCL 1 MG/ML 2ML VIAL ONE ×2 (06:44→06:46)
[2020-07-18] MEDS ORDERED: fentaNYL citrate 100 MCG/2 ML VIAL ONE (06:44)
[2020-07-18] MEDS ORDERED: ONDANSETRON INJ 2 MG/ML 2 ML VIAL ONE (06:44)
[2020-07-18] MEDS ORDERED: PROPOFOL IV EMULSION 10 MG/ML 20 ML VIAL IV ONE (06:44)
[2020-07-18] MEDS ORDERED: LIDOCAINE HCL 2% MPF (LOCAL) 5 ML VIAL INFIL ONE (06:49)
--- NOTE | 2020-07-18 06:50 | History & Physical Bridge Note ---
Date of Service July 18, 2020 History & Physical Bridge Note I have examined the patient, reviewed the History & Physical and in the interval since the performance of the History & Physical I have noted the following changes of clinical significance: no changes noted
[2020-07-18] MEDS ORDERED: METOCLOPRAMIDE HCL INJ 5 MG/ML 2 ML VIAL IV PRN ×2 (07:20→09:50)
[2020-07-18] MEDS ORDERED: ePHEDrine sulfate 50 MG/ML AMP IV PRN (07:20)
[2020-07-18] MEDS ORDERED: PROMETHAZINE HCL 12.5 MG in SODIUM CHLORIDE 0.9% 50 ML IV PRN (07:20)
[2020-07-18] MEDS ORDERED: fentaNYL citrate 100 MCG/2 ML VIAL IV PRN (07:20)
[2020-07-18] MEDS ORDERED: HYDROmorphone INJ 2 MG/ML SYR/VIAL IV PRN (07:20)
[2020-07-18] MEDS ORDERED: ONDANSETRON INJ 2 MG/ML 2 ML VIAL IV PRN ×2 (07:20→09:50)
[2020-07-18] MEDS ORDERED: ATROPINE SULFATE 0.1 MG/ML 10ML SYR IV PRN (07:20)
[2020-07-18] MEDS ORDERED: DEXAMETHASONE SOD INJ 4 MG/ML VIAL ONE (07:26)
[2020-07-18] MEDS ORDERED: CEFAZOLIN 250 MG/ML 1 GM VIAL ONE (07:34)
[2020-07-18] MEDS ORDERED: CEFAZOLIN 1000MG 1,000 MG/7.5 ML SYR IV ONE (07:53)
--- NOTE | 2020-07-18 08:27 | Operative Report ---
PG Post Operative Report Pre & Post Diagnosis Operation Date: 07/18/20 07:00 Pre-Op Diagnosis: Rotator cuff arthropathy of the right shoulder Post-Op Diagnosis: Rotator cuff arthropathy of the right shoulder I identified the patient and participated in the time-out.: Yes Procedure Operation Date: 07/18/20 07:00 Actual Procedures p Right Reverse Total Shoulder Arthroplasty(Right) - Spencer Barry DO Surgeon Spencer Barry DO Diagnostic Cardiac Sonographer Spencer Alexis PAC Estimated Blood Loss 200 Findings Consistent with Post-Op Diagnosis Specimens Right humeral head Complications none Disposition Disposition: Recovery Room Indications Joselyn is a pleasant 75-year-old female who has history of 2 prior rotator cuff repairs. She is been doing with chronic pain in her shoulder. Unfortunately recently she fell and reinjured her right shoulder. She has a pseudoparalysis and constant pain. X-rays and clinical examination were diagnostic for rotator cuff arthropathy of the right shoulder. After failing conservative treatment, she elected proceed with a right reverse shoulder arthroplasty. Description of Procedure Implants used: I used a [employer]omet Comprehensive reverse total shoulder arthroplasty system with a size 8 press fit micro humeral stem, a standard humeral tray and a standard humeral bearing, a 25 mm medium augment baseplate with a 6.5 mm central screw and superior and inferior locking screws, and a size 36 eccentric glenosphere. Joselyn arrived at [facility] for the above procedure. She was seen in the preoperative holding area and the operative extremity was identified and signed. She was given a preoperative antibiotic, TXA, and an interscalene nerve block. She was taken back to the operating room, laid on table in supine position, and put under general anesthesia. She was then put into the beachchair position. The shoulder was then prepped and draped in sterile fashion. A timeout was done and the patient and the operative extremity was properly identified. A deltopectoral approach was used. Dissection was taken down through the fascia and the deltoid was retracted laterally and the conjoined tendon was retracted medially. The anterior shoulder was exposed. The subscapularis was then directly released off the lesser tuberosity with a peel technique. The inferior capsule was released and the humeral head was dislocated. A canal finding reamer was sent down the center of the humeral canal. Sequential reaming up to a size 8 reamer was done. Off that reamer, a proximal humeral resection guide was placed. The proximal humerus was resected at 135 of inclination and 25 of retroversion. Osteophytes were then removed and the glenoid was exposed. Time was spent doing a complete capsular and labral release. A [employer] Signature One guide was then attached onto the anterior rim of the glenoid. A 3.2 mm Steinmann pin was then placed in the reverse total shoulder arthroplasty hole. The glenoid baseplate was then reamed. The final size 25 mm medium augment baseplate was then impacted in the place. A 6.5 mm central screw was then placed followed by superior and inferior locking screws. A 36 mm eccentric glenosphere was then impacted into place. Surrounding soft tissues were then injected with 100 cc an orthopedic pain control cocktail. The proximal humerus was then exposed. Sequential broaching of the humerus up to a size 8 broach was done. Off that broach a standard humeral tray was trialed. The shoulder was then reduced, brought through a full range of motion, and felt to be stable. The shoulder was then dislocated and the broach was removed. The final size 8 micro press-fit humeral stem was then impacted into place. A standard humeral bearing was then snapped onto a standard humeral tray. The humeral tray was then impacted onto the humeral stem. The shoulder was once again reduced, brought through a full range of motion, and felt to be stable. The subscapularis was unrepairable. A dilute betadyne lavage was then done for 3 minutes. The joint was then irrigated with normal saline solution. Hemostasis was obtained. The interval was closed with 2-0 Vicryl suture. The skin was then closed with 2-0 Vicryl and doris. A Silverlon dressing was placed and the arm was rested in a regular arm sling. She was then extubated and transferred to a hospital bed. She taken to the postanesthesia care unit in stable condition. She tolerated the procedure well. Spencer Alexis PA-C, was present for the entire procedure. He was critical for patient positioning, prepping, draping, retraction exposure, wound closure and application of sterile dressing. I attest to the content of the Intraoperative Record and any orders documented therein. Any exceptions are noted below.
--- NOTE | 2020-07-18 09:12 | Anesthesiology Progress Note ---
Date of Service July 18, 2020 Anesthesia Post Procedure Vital Signs Vital Signs: Temp Pulse Pulse Resp BP Pulse Ox 07/18/20 09:00 71 16 159/56 H 100 07/18/20 08:51 36.8 C 82 14 149/76 H 100 07/18/20 06:12 75 20 130/55 L 97 07/18/20 05:34 36.7 C 86 18 137/80 98 Pain Intensity Right Shoulder: Pain Intensity: 5 Transfer of Care Handoff Completed per policy Notes Mental Status: alert / awake / arousable and participated in evaluation Patient Amnestic to Procedure: Yes Nausea / Vomiting: adequately controlled Pain: adequately controlled Airway Patency, RR, SpO2: stable & adequate BP & HR: stable & adequate Hydration State: stable & adequate Anesthetic Complications: no major complications apparent
--- NOTE | 2020-07-18 09:15 | XRay Report ---
XR shoulder RT min 2V routine CLINICAL HISTORY: Post shoulder surgery COMPARISON: None. DISCUSSION: There are postsurgical changes of a reverse total right shoulder arthroplasty. There is g as present within the soft tissues consistent with recent surgery. There are overlying skin doris. There is no dislocation. The heart is enlarged with probable mild vascular prominence IMPRESSION: Postsurgical changes of a total right shoulder arthroplasty. ACT 112: Negative or not required by law. Electronically signed by: Alverto Castañeda M.D. 07/18/2020 9:14 AM
[2020-07-18] MEDS ORDERED: HYDROmorphone INJ 0.5 MG/0.5 ML SYR IV PRN (09:50)
[2020-07-18] MEDS ORDERED: bisacodyL 10 MG SUPP PR PRN (09:50)
[2020-07-18] MEDS ORDERED: OXYCODONE HCL IR 5 MG TAB (IMMEDIATE RELEASE) PO PRN (09:50)
[2020-07-18] MEDS ORDERED: TRAZODONE HCL 50 MG TAB PO PRN (09:50)
[2020-07-18] MEDS ORDERED: MAGNESIUM HYDROXIDE SUSP 30 ML UDC PO PRN (09:50)
[2020-07-18] MEDS ORDERED: LORazepam 1 MG TAB PO PRN (09:50)
[2020-07-18] MEDS ORDERED: NALOXONE HCL 0.4 MG/1 ML VIAL/CARP IV PRN (09:50)
[2020-07-18] MEDS ORDERED: ALBUTEROL HFA 8 GM INHALER INH PRN (10:03)
[2020-07-18] MEDS: SODIUM CHLORIDE 0.9% 1000ML 1,000 ML IV SCH ×2 (10:13→19:26)
[2020-07-18] MEDS: DOCUSATE SODIUM 100 MG CAP PO SCH ×3 (10:45→22:43)
[2020-07-18] MEDS: LOSARTAN/HCTZ 50/12.5MG TAB PO SCH (10:45)
[2020-07-18] MEDS: CYANOCOBALAMIN 500 MCG TABLET (VITAMIN B-12) PO SCH (10:46)
[2020-07-18] MEDS: MULTIVITAMIN TAB PO SCH (10:46)
[2020-07-18] MEDS: PANTOprazole 40 MG TAB PO SCH (10:46)
[2020-07-18] MEDS: CEFAZOLIN 2000MG 2,000 MG/15 ML SYR IV SCH ×2 (13:04→22:31)
[2020-07-18] MEDS: ACETAMINOPHEN 500 MG TAB PO SCH ×2 (13:04→22:33)
[2020-07-18] MEDS ORDERED: AMLODIPINE BESYLATE 5 MG TAB PO SCH (21:00)
[2020-07-18] MEDS ORDERED: LATANOPROST 0.005% OP SOLN 2.5 ML BTL OP SCH (21:00)
[2020-07-18] MEDS: SENNA 8.6 MG TAB PO SCH ×2 (22:33→22:43)
[2020-07-19] MEDS ORDERED: MELATONIN 3 MG TAB PO PRN (00:04)
[2020-07-19] MEDS: ACETAMINOPHEN 500 MG TAB PO SCH (05:32)
[2020-07-19 07:49] LABS: Hematocrit (blood only) 29.3 % (37-47); Hemoglobin 9.6 g/dL (12.0-16.0); Immature Granulocytes # (auto) 0.01 K/uL (0.00-0.02); Immature Granulocytes % (auto) 0.1 %; Lymphocytes # (auto) 0.98 K/uL (1.2-3.4); Lymphocytes % (auto) 11.1 %; Mean Corpuscular Hemoglobin 32.4 pg (25-34); Mean Corpuscular Hgb Conc 32.8 g/dL (32-36); Mean Platelet Volume 8.4 fL (7.4-10.4); Monocytes % (auto) 10.2 %; Neutrophils # (auto) 6.95 K/uL (1.4-6.5); Neutrophils % (auto) 78.6 %; Platelet Count 246 K/uL (130-400); RDW Coefficient of Variation 13.5 % (11.5-14.5); RDW Standard Deviation 48.5 fL (36.4-46.3); Red Blood Count 2.96 M/uL (4.2-5.4); White Blood Count 8.84 K/uL (4.8-10.8)
[2020-07-19] MEDS ORDERED: dexAMETHasone 4 MG TAB PO SCH (08:00)
--- NOTE | 2020-07-19 08:00 | Orthopedic Progress Note ---
Date of Service July 19, 2020 Assessment & Plan (1) Status post reverse arthroplasty of right shoulder: Overall she is doing very well. She not any much pain in the right shoulder. She will be seen by physical therapy this morning for ambulation and range of motion exercises. She can be discharged home later today. She will follow-up with orthopedics in 2 weeks. Present on Admission?: Yes Admission and Anticipated Discharge Date Admission Date: July 18, 2020 Libby Alves was seen and examined at bedside this morning. Overall she is doing very well. She is not having much pain in the right shoulder. She was having a little abdominal discomfort last night but that is improved. She has no complaints. Physical Exam Musculoskeletal: On physical examination of the right shoulder, the dressing is mostly clean and dry. She is wearing her sling as instructed. Her radial, median, and ulnar nerves were all checked intact at her wrist. Her axillary nerve was not checked yet. Results & Data ([facility]) Vital Signs (Past 12 Hours) Vital Signs Temp Pulse Resp BP Pulse Ox 07/19/20 07:17 36.6 C 73 16 93/52 L 95 07/19/20 03:07 37 C 76 16 96/62 L 96 07/18/20 23:48 36.8 C 63 14 121/54 L 92 07/18/20 22:25 67 15 107/55 L 92 Laboratory Results H & H 06/17/20 07/19/20 Range/Units 12:02 07:15 Hgb 12.4 9.6 L (12.0-16.0) g/dL Hct 38.6 29.3 L (37-47) % Coagulation 06/17/20 Range/Units 12:02 INR 1.0 (0.9-1.1) Diagnostic Findings Postoperative x-rays of the right shoulder show the prosthesis to be in anatomic alignment without any evidence of fracture, dislocation, or loosening. PG Care Time/CCT Total # of Minutes Spent Total Time Spent with Patient: Total time spent is greater than 50% in coordination of care (as documented) at patient's floor/unit and/or counseling patient: Coding Level of Care Code None Diagnoses Status post reverse arthroplasty of right shoulder Z96.611
--- NOTE | 2020-07-19 08:01 | Discharge Summary ---
Date of Service July 19, 2020 Admission HPI Per Admitting Provider Joselyn is a pleasant 75-year-old female who is been dealing with chronic increasing right shoulder pain and weakness. Is been hurting for a couple of years. It was exasperated recently when she was down in [place] and fell between a rock ledge in her home. She can barely move her shoulder. 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 After failing conservative treatment, she elected to proceed with a right reverse shoulder arthroplasty. Principal Diagnosis Right reverse shoulder arthroplasty Discharge Data Allergies Allergy/AdvReac Type Severity Reaction Status Date / Time DEMIAN Inhibitors Allergy Unknown hallucinati Verified 07/18/20 05:32 ons Penicillins Allergy Unknown Hives Verified 07/18/20 05:32 ranitidine [From Zantac] Allergy Unknown Unknown Verified 07/18/20 05:32 Sulfa (Sulfonamide Allergy Unknown rash Verified 07/18/20 05:32 Antibiotics) valsartan [From Diovan] Allergy Unknown Unknown Verified 07/18/20 05:32 verapamil [From Covera-HS] Allergy Unknown Unknown Verified 07/18/20 05:32 BOWEL PREP AdvReac Unknown vomiting, Uncoded 07/04/20 08:40 syncope Consultations 07/18/20 09:50 Consult Case Management - Discharge Planning Routine 07/18/20 23:25 Consult Medical [Consult Internal Medicine] Routine Procedures Performed Operation Date: 07/18/20 07:00 Actual Procedures p Right Reverse Total Shoulder Arthroplasty(Right) - Spencer Barry DO Ordered Studies 07/18/20 05:00 US - OR guided needle placemen Routine Hospital Course (1) Status post reverse arthroplasty of right shoulder: On July 18, 2020 Joselyn arrived at [facility] and underwent a right reverse shoulder arthroplasty without complication. She had a general anesthetic and a right interscalene nerve block. Postoperatively she was started on aspirin for DVT prophylaxis and transferred to the general orthopedic floors. Her hospital course was uneventful. On postop day #1 her H&H was sta ble and her pain was well controlled. She was able to participate well with physical therapy doing ambulation and range of motion exercises. She was then discharged home. She will follow-up with orthopedics in 2 weeks. Total Time Total Time Spent Total Time Spent (In Minutes): 20 Discharge Plan Discharge Items Patient Disposition: Home - Home Health Services Reason For Visit: RIGHT SHOULDER DEGENERATIVE JOINT DISEASE Discharge Diagnosis: Right reverse shoulder replacement Activity: As commented below Non-emergency contact: Surgeon Call non-emergency contact if: your wound has increased redness and your wound has increased drainage Follow-up/Referrals: Cirilo Macias MD [Primary Care Provider] - Diet: Regular Addtl Attending Provider Instructions: Activity and Therapy Recommendations: * If you are using [facility] then therapy will be provided at your home until they feel you have accomplished all of your goals. * If you are using [facility] then Physical Therapy will be provided until they feel you are ready to start Outpatient Physical Therapy. * If you are not using home therapy then Outpatient Physical Therapy should start about 3-5 days from your day of surgery. Therapy will last about 8-12 weeks * Wear your sling for 3 weeks, unless otherwise instructed. You may remove your sling to shower and to dress, but otherwise, you should be in your sling at all times, including while sleeping * The shoulder replacement is very stable and you can use your hand while in the sling * You were shown a series of exercises in the hospital. Do these exercises daily including the exercises you were shown in physical therapy. Medications: * Narcotic You will likely be sent home from the hospital with a prescription for the narcotic pain medication that worked best throughout your stay. * Other medications may be prescribed for specific circumstances. If you have any questions, please call the office at . * Resume previous home medications unless otherwise instructed Dressing Care: Leave the Silverlon dressing in place for 7 days. After 7 days you may remove the dressing. If the incision is not draining then you may leave the doris open to air. If there is a little bit of drainage or if the doris are getting stuck on your clothing then cover the incision with a dry dressing. The doris will be removed at your 2 week follow-up appointment. Showering: You may shower with the Silverlon dressing in place. Do not let the shower spray hit the dressing directly. Pat the Silverlon dressing dry. If the dressing becomes wet underneath, then simply remove the dressing. Keep the incision dry until you are 7 days out from the day of surgery. After 7 days you may remove the Silverlon dressing and shower with the doris exposed. Let soapy water run over the doris and pat them dry. Do not scrub or soak the incision. Things To Watch For: * Drainage from the incision site that occurs more than one week after your surgery. * Increased redness at the incision site. * Fever above 102 degrees Fahrenheit. * Unusual chest pain or shortness of breath. * Call [facility] at with any of the above problems Follow-Up Visit: Follow-up with Dr. Barry's PA (Spencer Alexis) 2-3 weeks after your day of surgery. He will remove your doris and answer any questions. If you have any additional questions or concerns, Dr Barry is usually in the office at the same time and will be available An appointment was probably scheduled when you signed-up for surgery in the office. If you have any questions call More detailed instructions as well as Frequently Asked Questions were provided in a folder by our office when you signed-up for surgery. Please review these instructions when you get home. If you have any further questions or concerns, please feel free to call the office at [phone] Pending Studies at Discharge: No Stand-Alone Forms: [facility], Smoking Cessation Medications and DC Order Prescriptions: Continued latanoprost [Xalatan] 0.005 % drops 1 drops OP HS RF: 0 albuterol sulfate [ProAir HFA] 90 mcg/actuation HFA aerosol inhaler 2 puffs INH Q4H PRN (Reason: shortness of breath) Qty: 18 RF: 5 amlodipine [Norvasc] 10 mg tablet 10 mg PO QPM Qty: 90 RF: 3 lorazepam 1 mg tablet 1 mg PO DAILY PRN (Reason: insomnia) Qty: 90 RF: 0 trazodone 50 mg Tablet 50 mg PO HS PRN (Reason: Insomnia) RF: 0 omeprazole 40 mg Capsule,Delayed Release(Dr/Ec) 40 mg PO QAM RF: 0 cyanocobalamin (vitamin B-12) 500 mcg Tablet 500 mcg PO DAILY RF: 0 losartan-hydrochlorothiazide 100-25 mg tablet 1 tab PO QAM RF: 0 acetaminophen [Tylenol Extra Strength] 500 mg Tablet 1,000 mg PO UD RF: 0 hydrocodone-acetaminophen 5-325 mg tablet 1 tab PO Q6H PRN (Reason: pain) Qty: 20 RF: 0 Discharge Orders: Discharge Order (Routine); Ordered 07/19/20 Ordered By: Spencer Barry Admission Data Admit Date/Time: 07/18/20 08:52 Attending Provider: Spencer Barry Admit Provider: Spencer Barry Primary Care Provider: Cirilo Macias Other Providers: Alfred Camp Coding Level of Care Code D/C Day Management <30 mins Diagnoses Status post reverse arthroplasty of right shoulder Z96.611
[2020-07-19 08:07] LABS: BUN Creatinine Ratio 19.2 (10-20); Calcium 8.5 mg/dl (8.5-10.1); Creatinine Clr Calc Pharmacy 36.8 ml/min; Est GFR (African American) 58.7; Est GFR (Non-African American) 50.6; Potassium 3.9 mmol/L (3.5-5.1)
[2020-07-19] MEDS: LOSARTAN/HCTZ 50/12.5MG TAB PO SCH (08:23)
[2020-07-19] MEDS: DOCUSATE SODIUM 100 MG CAP PO SCH (08:23)
[2020-07-19] MEDS: PANTOprazole 40 MG TAB PO SCH (08:23)
[2020-07-19] MEDS: MULTIVITAMIN TAB PO SCH (08:24)
[2020-07-19] MEDS: CYANOCOBALAMIN 500 MCG TABLET (VITAMIN B-12) PO SCH (08:24)
--- NOTE | 2020-07-21 08:39 | Electrocardiogram Report ---
Test Reason : Blood Pressure : / mmHG Vent. Rate : 084 BPM Atrial Rate : 084 BPM P-R Int : 190 ms QRS Dur : 130 ms QT Int : 426 ms P-R-T Axes : 048 -70 061 degrees QTc Int : 503 ms Sinus rhythm with sinus arrhythmia with occasional Premature ventricular complexes Left atrial enlargement Left bundle branch block Abnormal ECG When compared with ECG of 18-AUG-2019 10:16, Premature ventricular complexes are now Present Otherwise no significant change Confirmed by Misael Coronado ([id number]) on 07/21/2020 8:38:58 AM Referred By: Spencer Barry Confirmed By:Miasel Coronado
== END 2020-07-19 12:49 | disposition home health service (06) | DRG 483 ==
LOC: ASU 05:09 → 3E 08:52

== ENCOUNTER 2021-06-27 16:01 | Inpatient (IN) ==
[2021-06-27] MEDS ORDERED: methylPREDNISolone 125 MG/2 ML VIAL IV STA (16:36)
[2021-06-27] MEDS ORDERED: ALBUT/IPRATROP 3MG/0.5MG NEB 3 ML VIAL NEB STA (16:38)
[2021-06-27 16:50] LABS: Eosinophils # (auto) 0.01 K/uL (0-0.5); Eosinophils % (auto) 0.1 %; Hematocrit (blood only) 36.1 % (37-47); Hemoglobin 11.6 g/dL (12.0-16.0); Immature Granulocytes # (auto) 0.03 K/uL (0.00-0.02); Immature Granulocytes % (auto) 0.3 %; Lymphocytes # (auto) 0.56 K/uL (1.2-3.4); Lymphocytes % (auto) 5.1 %; Mean Corpuscular Hgb Conc 32.1 g/dL (32-36); Mean Corpuscular Volume 102.8 fL (80-100); Mean Platelet Volume 8.9 fL (7.4-10.4); Monocytes # (auto) 0.43 K/uL (0.11-0.59); Monocytes % (auto) 3.9 %; Neutrophils # (auto) 10.02 K/uL (1.4-6.5); Neutrophils % (auto) 90.6 %; Platelet Count 304 K/uL (130-400); RDW Coefficient of Variation 12.6 % (11.5-14.5); RDW Standard Deviation 47.7 fL (36.4-46.3); Red Blood Count 3.51 M/uL (4.2-5.4); White Blood Count 11.05 K/uL (4.8-10.8)
--- NOTE | 2021-06-27 16:56 | Emergency Department Note ---
History of Present Illness General Chief complaint: Cardiac Assessment Stated complaint: VRY SHORT OF BREATH,HAD SURG ON 06-23,BLOOD IN SPIT Time Seen by Provider: 06/27/21 16:18 History of Present Illness Maximum Pain Intensity: 0 76-year-old female presents to the ED with a chief complaint of shortness of breath. The patient states that she had back surgery by Dr. Duarte 4 days ago. She reports this morning feeling more short of breath than usual. She took around nebulizers without improvement. She also reports a sore throat possibly because of being intubated for her surgery. She also states that she has a slight cough and spit up a little bit of blood in her sputum this morning. She states that she is currently getting a work-up for possibly cystic fibrosis. She has had some chronic lung issues in the past. Symptoms are worse with the cough. Home Medications Medication Instructions Recorded Confirmed Type latanoprost 0.005 % eye drops 1 drops OP HS ml 08/21/18 06/27/21 History (Xalatan) albuterol sulfate 90 mcg/actuation 2 puffs INH Q4H PRN #18 gm 07/05/19 06/27/21 Rx aerosol inhaler (ProAir HFA) cyanocobalamin (vitamin B-12) 500 500 mcg PO QAM 05/19/20 06/27/21 History mcg tablet amlodipine 10 mg tablet (Norvasc) 10 mg PO QPM #90 tab 07/07/20 06/27/21 Rx acetaminophen 500 mg tablet 1,000 mg PO QID PRN 09/26/20 06/27/21 History (Tylenol Extra Strength) omeprazole 40 mg capsule,delayed 40 mg PO QAM #90 cap 01/29/21 06/27/21 Rx release trazodone 50 mg tablet 50 mg PO HS PRN #90 tab 03/13/21 06/27/21 Rx losartan 100 1 tab PO QAM #90 tab 03/23/21 06/27/21 Rx mg-hydrochlorothiazide 25 mg tablet fluoxetine 20 mg capsule 20 mg PO QAM 03/27/21 06/27/21 History nebulizers #1 ea 04/09/21 06/15/21 Rx sodium chloride 7 % for 4 ml INHALATION BID PRN #1 ml 04/09/21 06/27/21 Rx nebulization prednisone 10 mg tablet 10 mg PO DAILY #90 tab 05/11/21 06/27/21 Rx ipratropium 0.5 mg-albuterol 3 mg 3 ml INHALATION Q6H PRN #180 ml 05/29/21 06/27/21 Rx (2.5 mg base)/3 mL nebulization soln lactobacillus combination no.4 3 3,000 mmu cells PO QAM 06/04/21 06/27/21 History billion cell capsule (Probiotic) lorazepam 1 mg tablet 1 mg PO DAILY PRN 06/04/21 06/27/21 History tramadol 50 mg tablet 50 mg PO Q6H PRN #30 tab 06/23/21 06/27/21 Rx levofloxacin 500 mg tablet 500 mg PO DAILY 10 Days #10 tab 06/27/21 Rx prednisone 50 mg tablet 50 mg PO DAILY 5 Days #5 tab 06/27/21 Rx Allergies Allergy/AdvReac Type Severity Reaction Status Date / Time DEMIAN Inhibitors Allergy Unknown hallucinati Verified 06/27/21 16:24 ons Penicillins Allergy Unknown Hives Verified 06/27/21 16:24 ranitidine [From Zantac] Allergy Unknown Unknown Verified 06/27/21 16:24 Sulfa (Sulfonamide Allergy Unknown rash Verified 06/27/21 16:24 Antibiotics) valsartan [From Diovan] Allergy Unknown Possible Verified 06/27/21 16:24 cough verapamil [From Covera-HS] Allergy Unknown Cough Verified 06/27/21 16:24 BOWEL PREP AdvReac Unknown vomiting, Uncoded 06/27/21 16:24 syncope Past Med/Surg History Medical History Anxiety Asthma stable Bronchiectasis F/U DR SALAMANCA PREVIOUSLY-NOW ASSIGNED DR SLAVA LEVI-GONZALEZ PT Recent hx of "aspergillus fumigatus tracheobronchitis" - treated and deemed optimized for surgery per pulm Cardiac murmur A CHILD Hx of rheumatic fever Cervical spinal stenosis Pain improved with injections Depression Diarrhea chronic s/p nacho Fibromyalgia GERD (gastroesophageal reflux disease) Well controlled and stable Glaucoma Follows routinely with eye doctor Hiatal hernia large History of basal cell carcinoma s/p removed from nose- Mohs procedure History of pneumothorax Post-op lung biopsy, chest tube inserted (approx 2015) Hypertension 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 Gentile) and general surgery (Dr. Yates/referred to pain clinic-DX'D CRUSHED VERTEBRAE Iron deficiency anemia under surveillance s/p iron infusion (04/2020) Right shoulder pain SOB (shortness of breath) on exertion Chronic Surgical History H/O arthroscopy of knee Right knee H/O chest tube placement (03/02/09) By Dr. Yates, patient had lung biopsy in [place] and developed a pneumo, #20 chest tube inserted H/O hemorrhoidectomy History of basal cell carcinoma (BCC) excision History of cardiac cath - NO FINDINGS/NO STENT(S) History of cholecystectomy History of colonoscopy History of D&C History of esophagogastroduodenoscopy (EGD) History of repair of right rotator cuff X2 History of tooth extraction Status post reverse arthroplasty of right shoulder (~06/2020) Family History Mother Hypertension Father Hypertension Other Family history non-contributory No family history of adverse response to anesthesia Social History Smoking Status: Former smoker Tobacco Type: Cigarettes Second Hand Exposure: Yes (PARENTS SMOKED/SPOUSE SMOKES ON OCC); Hx Alcohol Use: Yes Alcohol type: wine Hx Substance Use: No Preferred Language: [place] Communication Ability: Effective Child Care Coordinator Required: No Beliefs That Will Affect Care: None marital status: Current Living Situation: Spouse 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 Safe at Home: Yes Seatbelt Use: always Assistive Devices: Denture - Upper, Denture - Lower and Glasses Review of Systems A total of 10 systems reviewed and were otherwise negative Physical Exam Vital Signs Vital Signs - 24 hr 06/27/21 16:05 06/27/21 16:29 06/27/21 16:37 Temperature 36.7 C Temperature Source Temporal Artery Scan Pulse Rate 99 H Pulse Rate [Apical] 89 Pulse Rhythm [Apical] Regular Respiratory Rate 20 16 Respiratory Effort / Characteristics Non-Labored Respiratory Depth Normal Blood Pressure 134/71 Blood Pressure [Left Arm] 137/83 Blood Pressure Mean 92 Blood Pressure Mean [Left Arm] 101 Pulse Oximetry 92 96 95 Oxygen Delivery Method Room Air Room Air Nasal Cannula Oxygen Flow Rate 2 Sepsis Recent Fever Within 48 Hours No Sepsis New/Unexplained Change in Mental Status N/A Sepsis Action Taken by Nursing No Action Required Oxygen Flow Rate - Titration 2 Pulse Oximetry Post Tiitration 95 06/27/21 17:03 06/27/21 18:00 Temperature Temperature Source Pulse Rate Pulse Rate [Apical] 79 102 H Pulse Rhythm [Apical] Respiratory Rate 20 16 Respiratory Effort / Characteristics Non-Labored Spontaneous Non-Labored Respiratory Depth Normal Blood Pressure Blood Pressure [Left Arm] 137/83 Blood Pressure Mean Blood Pressure Mean [Left Arm] 101 Pulse Oximetry 97 95 Oxygen Delivery Method Nasal Cannula Nasal Cannula Oxygen Flow Rate 2 2 Sepsis Recent Fever Within 48 Hours Sepsis New/Unexplained Change in Mental Status Sepsis Action Taken by Nursing Oxygen Flow Rate - Titration Pulse Oximetry Post Tiitration CONSTITUTIONAL/VITAL SIGNS: Reviewed / noted above. GENERAL: Non-toxic in appearance. INTEGUMENTARY: Warm, dry, and [place]. HEAD: Normocephalic. EYES: without scleral icterus or trauma. ENT/OROPHARYNX: clear and moist. LYMPHADENOPATHY/NECK: Is supple without lymphadenopathy or meningismus. RESPIRATORY: Small amount of scattered rhonchi bilaterally. No increased work of breathing. CARDIOVASCULAR: Regular rate and rhythm. GI/ABDOMEN: Soft and nontender. No organomegaly or pulsatile mass. EXTREMITIES: Warm and well perfused. BACK: No CVA tenderness. NEUROLOGICAL: Intact without focal deficits. PSYCHIATRIC: normal affect. MUSCULOSKELETAL: Normally developed with good muscle tone. TRIAGE NURSING DOCUMENTATION REVIEWED. Course Administered Medications Discontinued Medications Albuterol (Albut/Ipratrop 3mg/0.5mg Neb 3 Ml Vial) 3 ml NEB NOW STA Stop: 06/27/21 16:39 Last Admin: 06/27/21 17:01 Dose: 3 ml Documented by: [id number] Ioversol (Optiray 320 125ml) 119 ml IV ONCE ONE Stop: 06/27/21 18:27 Last Admin: 06/27/21 18:26 Dose: 1 ml Documented by: [id number] Methylprednisolone (Methylprednisolone 125 Mg/2 Ml Vial) 125 mg IV NOW STA Stop: 06/27/21 16:37 Last Admin: 06/27/21 17:06 Dose: 125 mg Documented by: [id number] Medical Decision Making Differential Diagnosis The differential was considered includes acute myocardial infarction, acute coronary syndrome, myocarditis, pericarditis, pericardial effusions /tamponad, esophageal perforation, pulmonary embolism, pneumonia, pneumothorax, cardiomyopathy, congestive heart, anemia , COPD/asthma exacerbation. Medical Records Attestation: I reviewed the patient's medical records. Home Medications Current Medication List: was personally reviewed by me Laboratory Data Attestation: I reviewed the patient's lab results. Result diagrams: 06/27/21 16:25 06/27/21 16:25 Lab Results 06/27/21 06/27/21 06/27/21 Range/Units 16:25 16:25 16:25 WBC 11.05 H (4.8-10.8) K/uL RBC 3.51 L (4.2-5.4) M/uL Hgb 11.6 L (12.0-16.0) g/dL Hct 36.1 L (37-47) % MCV 102.8 H (80-100) fL MCH 33.0 (25-34) pg MCHC 32.1 (32-36) g/dL RDW Std Deviation 47.7 H (36.4-46.3) fL RDW Coeff of Katya 12.6 (11.5-14.5) % Plt Count 304 (130-400) K/uL MPV 8.9 (7.4-10.4) fL Immature Gran % (Auto) 0.3 % Neut % (Auto) 90.6 % Lymph % (Auto) 5.1 % [place] % (Auto) 3.9 % Eos % (Auto) 0.1 % Baso % (Auto) 0.0 % Neut # (Auto) 10.02 H (1.4-6.5) K/uL Lymph # (Auto) 0.56 L (1.2-3.4) K/uL [place] # (Auto) 0.43 (0.11-0.59) K/uL Eos # (Auto) 0.01 (0-0.5) K/uL Baso # (Auto) 0.00 (0-0.2) K/uL Immature Gran # (Auto) 0.03 H (0.00-0.02) K/uL APTT 23.6 (21.0-31.0) Seconds PTT Ratio 0.9 Sodium 137 (136-145) mmol/L Potassium 4.4 (3.5-5.1) mmol/L Chloride 102 (98-107) mmol/L Carbon Dioxide 30 (21-32) mmol/L Anion Gap 5.0 (3-11) BUN 17 (7-18) mg/dl Creatinine 0.97 (0.6-1.2) mg/dl Est Cr Clr Drug Dosing 40.0 ml/min Est GFR ( Amer) 64.8 ml/min Est GFR (Non-Af Amer) 55.9 ml/min BUN/Creatinine Ratio 17.1 (10-20) Glucose 171 H (70-99) mg/dl Calcium 9.6 (8.5-10.1) mg/dl Total Bilirubin 0.3 (0.2-1) mg/dl AST 14 L (15-37) U/L ALT 22 (12-78) U/L Alkaline Phosphatase 86 (45-117) U/L Troponin I < 0.015 (0-0.045) ng/ml NT-Pro-B Natriuret Pep 1157 (0-1800) pg/ml Total Protein 7.2 (6.4-8.2) gm/dl Albumin 3.1 L (3.4-5.0) gm/dl Globulin 4.1 H (2.5-4.0) gm/dl Albumin/Globulin Ratio 0.8 L (0.9-2) Imaging Data Radiologist's Impression: Chest X-Ray 06/27/21 16:37 SINGLE VIEW CHEST CLINICAL HISTORY: Atypical chest pain. FINDINGS: An AP, portable, upright chest radiograph is compared to study dated 06/09/2021 and correlated with chest CT dated 04/11/2021. The heart is mildly enlarged noting atherosclerotic calcification of the thoracic aorta. The pulmonary vasculature is noncongested. A large hiatal hernia is noted. Chronic interstitial thickening and nodularity is similar to previous. There is bibasilar scarring/atelectasis. No airspace consolidation or large pleural effusion is identified. No pneumothorax is seen. The skeletal structures are osteopenic. The bony thorax is grossly intact. A right shoulder arthroplasty is in place. IMPRESSION: 1. No acute cardiopulmonary abnormality. 2. Large hiatal hernia. ACT 112: Negative or not required by law. Electronically signed by: Cirilo Jean M.D. 06/27/2021 5:02 PM Chest CTA 06/27/21 18:21 CT ANGIOGRAM OF THE CHEST CLINICAL HISTORY: Dyspnea. COMPARISON STUDY: Chest CT scans dated 04/11/2021 and 10/08/2016. Chest x-ray dated 06/27/2021. TECHNIQUE: Following the IV administration of 119 cc of Optiray 320, CT angiogram of the chest was performed from the upper abdomen to the thoracic inlet utilizing the pulmonary embolus protocol. Images are reviewed in the axial, sagittal, and coronal planes. 3-D MIPS images are created and assessed. IV contrast was administered without complication. A dose lowering technique was utilized adhering to the principles of ALARA. CT DOSE: 266.32 mGy.cm FINDINGS: Thyroid: Imaged portions of the thyroid gland are normal in size and attenuation. Thoracic aorta: There is atherosclerotic calcification of the thoracic aorta, which is normal in caliber and demonstrates standard 3-vessel arch anatomy. No dissection is seen. Pulmonary vasculature: The pulmonary trunk is normal in caliber. There are no filling defects identified in main, lobar, or segmental pulmonary branches to suggest pulmonary embolus. Heart: The heart is enlarged and without pericardial effusion. Lungs and pleural spaces: There is bibasilar scarring/atelectasis. Multifocal groundglass consolidation is seen throughout both lungs. More patchy nodular consolidation is seen in the lower lobes, right greater than left. These measure up to 2.2 cm. There are trace pleural effusions. The trachea and central airways are clear. There is diffuse peribronchial thickening with numerous tiny pulmonary nodules. Mild bronchiectasis and mucous plugging is similar to previous. These are similar to the 04/11/2021 examination. Mediastinum: There is no mediastinal lymphadenopathy. [place]: Clear. Axillae: There is no axillary lymphadenopathy. Upper abdomen: There is a large hiatal hernia, with the majority of the stomach located in the thoracic cavity. Partially visualized upper abdominal viscera is otherwise grossly unremarkable. Skeletal structures: The skeletal structures are osteopenic. There is a chronic compression deformity of T12 with evidence of previous vertebroplasty. Degenerative change and hyperkyphosis is noted in the thoracic spine. No lytic or blastic bony lesions are seen. A right shoulder arthroplasty is in place. IMPRESSION: 1. There is no evidence of pulmonary embolus in the main, lobar, or segmental pulmonary arteries. 2. There is multifocal groundglass consolidation throughout both lungs, with more patchy nodular consolidation in the lower lobes. The appearance is typical for multifocal pneumonia and clinical correlation will be required. 3. Given the patchy/nodular appearance of the consolidation and a follow-up chest CT in 3-4 months time is recommended to document resolution. 5. Numerous additional tiny pulmonary nodules and chronic parenchymal changes are similar to prior studies. 6. Cardiomegaly and trace pleural effusions. 7. Large hiatal hernia. 8. Additional findings as above. ACT 112: Positive. There are findings on this exam that require communication between the performing entity and the patient following Patient Test Result Information Act ([place] Act 112) guidelines. Electronically signed by: Cirilo Jean M.D. 06/27/2021 7:28 PM ECG Data Attestation: I personally reviewed and interpreted this ECG as follows: Additional Comments: Twelve-lead EKG: Per my interpretation there is a normal sinus rhythm at a rate of 88. Sinus arrhythmia. No ST elevation. No PVCs. MDM Narrative Patient presents with some recent increased shortness of breath over the past couple of days, status post thoracic back surgery 4 days ago. She also reported a slight sore throat and spitting up a little bit of blood-tinged sputum. This occurred this morning. The patient reports a somewhat of a chronic cough and a pulmonary condition that she is uncertain of at this time but could be related to cystic fibrosis. Further details are listed above. The patient's EKG shows a normal sinus rhythm. CBC was unremarkable. Chemistry panel was unremarkable. Troponin is negative. BNP is normal. Chest x-ray did not show acute process. CT scan of the chest did not show PE. There is possibly some findings reflecting multifocal pneumonia. The patient was told the results of the test. She was given a DuoNeb treatment here as well as some IV Solu-Medrol. Overall the patient is feeling better. She is saturating 95 percent on room air. The patient was advised of the results of the test. I did talk to the patient about being in the hospital for further evaluation and treatment but the patient declined this and wishes to go home and try antibiotics at home. She will be given a dose of Levaquin p.o. here. She does have nebulizers at home. She will also be given an increased dose of prednisone. She is chronically on either 5 or 10 mg of prednisone a day. She was given 50 mg daily for the next 5 days. She will return if her symptoms worsen or she develops any new concerning symptoms. Impression & Plan Pneumonia Discharge Plan Visit Data Chief Complaint: Cardiac Assessment Stated Complaint: VRY SHORT OF BREATH,HAD SURG ON 06-23,BLOOD IN SPIT ED Provider: Ottoniel Stoll Discharge Problem: Pneumonia Patient Disposition: Home - Self-Care Discharge Instructions Activity Restrictions/Additional Instructions: Levaquin as prescribed. Prednisone 50 mg daily for the next 5 days. Follow-up with your doctor for further care and evaluation in 1-2 days if symptoms persist. Return to the emergency department for worsening or new symptoms or any concerns. You have been examined and treated today on an emergency basis only. This is not a substitute for, or an effort to provide, complete comprehensive medical care. It is impossible to recognize and treat all injuries or illnesses in a single emergency department visit. It is therefore important that you follow up closely with your doctor. Call as soon as possible for an appointment. Forms Stand Alone Forms: [facility], [facility] Emergency Department, Important Visit Information Prescriptions Prescriptions: New prednisone 50 mg tablet 50 mg PO DAILY 5 Days Qty: 5 RF: 0 levofloxacin 500 mg tablet 500 mg PO DAILY 10 Days Qty: 10 RF: 0 No Action latanoprost [Xalatan] 0.005 % drops 1 drops OP HS RF: 0 albuterol sulfate [ProAir HFA] 90 mcg/actuation HFA aerosol inhaler 2 puffs INH Q4H PRN (Reason: shortness of breath) Qty: 18 RF: 5 amlodipine [Norvasc] 10 mg tablet 10 mg PO QPM Qty: 90 RF: 3 omeprazole 40 mg capsule,delayed release(DR/EC) 40 mg PO QAM Qty: 90 RF: 1 trazodone 50 mg tablet 50 mg PO HS PRN (Reason: Insomnia) Qty: 90 RF: 1 losartan-hydrochlorothiazide 100-25 mg tablet 1 tab PO QAM Qty: 90 RF: 3 prednisone 10 mg tablet 10 mg PO DAILY Qty: 90 RF: 0 ipratropium-albuterol 0.5 mg-3 mg(2.5 mg base)/3 mL solution for nebulization 3 ml inhalation Q6H PRN (Reason: wheezing) Qty: 180 RF: 5 (DME) nebulizers Misc See Rx Instructions .ROUTE .MEDSUPPLY Qty: 1 RF: 0 sodium chloride 7 % solution for nebulization 4 ml inhalation BID PRN (Reason: chest congestion) Qty: 1 RF: 5 cyanocobalamin (vitamin B-12) 500 mcg Tablet 500 mcg PO QAM RF: 0 acetaminophen [Tylenol Extra Strength] 500 mg tablet 1,000 mg PO QID PRN (Reason: Pain) RF: 0 lorazepam 1 mg tablet 1 mg PO DAILY PRN (Reason: Insomnia) RF: 0 Probiotic 3 billion cell Capsule 3,000 mmu cells PO QAM RF: 0 tramadol 50 mg tablet 50 mg PO Q6H PRN (Reason: pain, moderate) Qty: 30 RF: 0 fluoxetine 20 mg capsule 20 mg PO QAM RF: 0 Referrals Referrals: Cirilo Macias MD [Primary Care Provider] - Discharge Problem: Pneumonia Qualifiers: Pneumonia type: due to unspecified organism Laterality: bilateral Lung location: unspecified part of lung Qualified Code(s): J18.9 - Pneumonia, unspecified organism
[2021-06-27 16:58] LABS: Alanine Aminotransferase 22 U/L (12-78); Albumin Level 3.1 gm/dl (3.4-5.0); Aspartate Aminotransferase 14 U/L (15-37); BUN Creatinine Ratio 17.1 (10-20); Blood Urea Nitrogen 17 mg/dl (7-18); Calcium 9.6 mg/dl (8.5-10.1); Carbon Dioxide 30 mmol/L (21-32); Chloride 102 mmol/L (98-107); Est GFR (African American) 64.8 ml/min; Est GFR (Non-African American) 55.9 ml/min; Glucose 171 mg/dl (70-99); Potassium 4.4 mmol/L (3.5-5.1); Sodium 137 mmol/L (136-145)
[2021-06-27 17:02] LABS: Partial Thromboplastin Ratio 0.9; Partial Thromboplastin Time 23.6 Seconds (21.0-31.0)
[2021-06-27 17:03] LABS: Albumin Globulin Ratio 0.8 (0.9-2); Alkaline Phosphatase 86 U/L (45-117); Bilirubin,Total 0.3 mg/dl (0.2-1); Globulin 4.1 gm/dl (2.5-4.0); NT Pro B Type Natriuretic Pept 1157 pg/ml (0-1800); Total Protein 7.2 gm/dl (6.4-8.2); Troponin I < 0.015 ng/ml (0-0.045)
--- NOTE | 2021-06-27 17:04 | XRay Report ---
SINGLE VIEW CHEST CLINICAL HISTORY: Atypical chest pain. FINDINGS: An AP, portable, upright chest radiograph is compared to study dated 06/09/2021 and correlat ed with chest CT dated 04/11/2021. The heart is mildly enlarged noting atherosclerotic calcification o f the thoracic aorta. The pulmonary vasculature is noncongested. A large hiatal hernia is noted. [employer] courtney interstitial thickening and nodularity is similar to previous. There is bibasilar scarring/atelec tasis. No airspace consolidation or large pleural effusion is identified. No pneumothorax is seen. Th e skeletal structures are osteopenic. The bony thorax is grossly intact. A right shoulder arthroplast y is in place. IMPRESSION: 1. No acute cardiopulmonary abnormality. 2. Large hiatal hernia. ACT 112: Negative or not required by law. Electronically signed by: Cirilo Jean M.D. 06/27/2021 5:02 PM
[2021-06-27] MEDS ORDERED: OPTIRAY 320 125ml IV ONE (18:26)
--- NOTE | 2021-06-27 19:30 | CT Scan Report ---
CT ANGIOGRAM OF THE CHEST CLINICAL HISTORY: Dyspnea. COMPARISON STUDY: Chest CT scans dated 04/11/2021 and 10/08/2016. Chest x-ray dated 06/27/2021. TECHNIQUE: Following the IV administration of 119 cc of Optiray 320, CT angiogram of the chest was pe rformed from the upper abdomen to the thoracic inlet utilizing the pulmonary embolus protocol. Images are reviewed in the axial, sagittal, and coronal planes. 3-D MIPS images are created and assessed. I V contrast was administered without complication. A dose lowering technique was utilized adhering to the principles of ALARA. CT DOSE: 266.32 mGy.cm FINDINGS: Thyroid: Imaged portions of the thyroid gland are normal in size and attenuation. Thoracic aorta: There is atherosclerotic calcification of the thoracic aorta, which is normal in [place] and demonstrates standard 3-vessel arch anatomy. No dissection is seen. Pulmonary vasculature: The pulmonary trunk is normal in caliber. There are no filling defects identif ied in main, lobar, or segmental pulmonary branches to suggest pulmonary embolus. Heart: The heart is enlarged and without pericardial effusion. Lungs and pleural spaces: There is bibasilar scarring/atelectasis. Multifocal groundglass consolidati on is seen throughout both lungs. More patchy nodular consolidation is seen in the lower lobes, right greater than left. These measure up to 2.2 cm. There are trace pleural effusions. The trachea and ce ntral airways are clear. There is diffuse peribronchial thickening with numerous tiny pulmonary nodul es. Mild bronchiectasis and mucous plugging is similar to previous. These are similar to the examination. Mediastinum: There is no mediastinal lymphadenopathy. [place]: Clear. Axillae: There is no axillary lymphadenopathy. Upper abdomen: There is a large hiatal hernia, with the majority of the stomach located in the thorac ic cavity. Partially visualized upper abdominal viscera is otherwise grossly unremarkable. Skeletal structures: The skeletal structures are osteopenic. There is a chronic compression deformity of T12 with evidence of previous vertebroplasty. Degenerative change and hyperkyphosis is noted in t he thoracic spine. No lytic or blastic bony lesions are seen. A right shoulder arthroplasty is in jaycob ce. IMPRESSION: 1. There is no evidence of pulmonary embolus in the main, lobar, or segmental pulmonary arteries. 2. There is multifocal groundglass consolidation throughout both lungs, with more patchy nodular cons olidation in the lower lobes. The appearance is typical for multifocal pneumonia and clinical correla tion will be required. 3. Given the patchy/nodular appearance of the consolidation and a follow-up chest CT in 3-4 months ti me is recommended to document resolution. 5. Numerous additional tiny pulmonary nodules and chronic parenchymal changes are similar to prior st udies. 6. Cardiomegaly and trace pleural effusions. 7. Large hiatal hernia. 8. Additional findings as above. ACT 112: Positive. There are findings on this exam that require communication between the performing entity and the patient following Patient Test Result [place] Act ([place] Act 112) guidelines. Electronically signed by: Cirilo Jean M.D. 06/27/2021 7:28 PM
[2021-06-27] MEDS ORDERED: levoFLOXacin 750 MG TAB PO ONE (20:02)
--- NOTE | 2021-06-27 21:42 | History & Physical Report ---
Date of Service June 27, 2021 Assessment & Plan (1) Pneumonia: Plan: Mrs. Abraham is a 76 yo woman with a PMHx of chronic lung disease who presented for evaluation of progressive dyspnea, found to be hypoxic on room air. - WBC mildly elevated to 11. Chest CT showing evidence of a multifocal pneumonia. Not septic (SIRS criteria not met on admission) - given recent back surgery, patient is at risk for HCAP - No risk factors for MDR organisms (ie hospitalization was < 5 days ago, no IV antibiotic use in last 90 days, not septic at time of presentation, not in acute renal failure, no evidence of ARDS) - Will begin monotherapy with Aztreonam (patient has allergies to both penicillins and sulfa drugs) - Nasal MRSA swab ordered. If positive, or if patient clinically deteriorates, will add coverage with Vancomycin. - continue supplemental O2 as needed for hypoxia - trend CBC (2) Hypoxia: Plan: - likely secondary to multifocal PNA as above - Wells score is 3, placing patient in moderate risk category - I will check a d-dimer to rule out possibility of pulmonary embolism. If elevated, I will follow up with a CTA of Chest - continue supplemental o2 (3) Obstructive airway disease: Plan: - continue home inhaler regimen + prednisone 10mg daily (4) Anemia: Plan: - Hgb 11 - MCV 102 - folate and B12 levels checked and WNL in 08/2020 (5) Depression: Plan: - continue home dose fluoxetine (6) Hypertension: Plan: - continue home BP medication regimen (7) Hiatal hernia with gastroesophageal reflux: Plan: - continue home dose omeprazole Dvt ppx: Lovenox 40mg SQ Code: DNR/DNI, I discussed with patient Diet: regular Dispo: Med/Surg w. tele History of Present Illness Primary Care Provider: Cirilo Macias MD Mrs. Abraham is a 76 yo woman who presented to the [facility] ED for evaluation of progressive shortness of breath over the past 1-2 days. She has not had any fevers/chills, cough, chest pain, nausea/vomiting, diarrhea, rashes. No preceding lower extremity swelling or redness. She does have underlying chronic lung disease - it has been characterized as a moderate obstructive ventilatory defect that responds to bronchodilator. She takes prednisone 10mg daily. She previously followed with Dr. Gentile in [place] [facility] but plans to establish with Dr. Reddy. She has been vaccinated against COVID 19, Prevnar and Pneumovax. Of note, she had surgery by Dr. Duarte (T12 kyphoplasty) 4 days ago. She states her post-surgical pain is well controlled - not even needing to use Tylenol at this point. In the ED, she was febrile with a mildly elevated HR to 108 bpm, normal BP, RR of 20 and O2 sat of 87% on RA. Her WBC was mildly elevated to 11, Hgb mildly decreased to 11.6. CMP was normal. Trop undectable. BNP not elevated. CXR tiarra wing a large hiatal hernia. CT chest showing a multifocal ground glass opacities and trace b/l pleural effusions. She was given a nebulizer treatment, Methylprednisalone 125mg, and Levaquin 750mg orally. Allergies Allergy/AdvReac Type Severity Reaction Status Date / Time DEMIAN Inhibitors Allergy Unknown hallucinati Verified 06/27/21 16:24 ons Penicillins Allergy Unknown Hives Verified 06/27/21 16:24 ranitidine [From Zantac] Allergy Unknown Unknown Verified 06/27/21 16:24 Sulfa (Sulfonamide Allergy Unknown rash Verified 06/27/21 16:24 Antibiotics) valsartan [From Diovan] Allergy Unknown Possible Verified 06/27/21 16:24 cough verapamil [From Covera-HS] Allergy Unknown Cough Verified 06/27/21 16:24 BOWEL PREP AdvReac Unknown vomiting, Uncoded 06/27/21 16:24 syncope Home Medications Medication Instructions Recorded Confirmed Type latanoprost 0.005 % eye drops 1 drops OP HS ml 08/21/18 06/27/21 History (Xalatan) albuterol sulfate 90 mcg/actuation 2 puffs INH Q4H PRN #18 gm 07/05/19 06/27/21 Rx aerosol inhaler (ProAir HFA) cyanocobalamin (vitamin B-12) 500 500 mcg PO QAM 05/19/20 06/27/21 History mcg tablet amlodipine 10 mg tablet (Norvasc) 10 mg PO QPM #90 tab 07/07/20 06/27/21 Rx acetaminophen 500 mg tablet 1,000 mg PO QID PRN 09/26/20 06/27/21 History (Tylenol Extra Strength) omeprazole 40 mg capsule,delayed 40 mg PO QAM #90 cap 01/29/21 06/27/21 Rx release trazodone 50 mg tablet 50 mg PO HS PRN #90 tab 03/13/21 06/27/21 Rx losartan 100 1 tab PO QAM #90 tab 03/23/21 06/27/21 Rx mg-hydrochlorothiazide 25 mg tablet fluoxetine 20 mg capsule 20 mg PO QAM 03/27/21 06/27/21 History nebulizers #1 ea 04/09/21 06/15/21 Rx sodium chloride 7 % for 4 ml INHALATION BID PRN #1 ml 04/09/21 06/27/21 Rx nebulization prednisone 10 mg tablet 10 mg PO DAILY #90 tab 05/11/21 06/27/21 Rx ipratropium 0.5 mg-albuterol 3 mg 3 ml INHALATION Q6H PRN #180 ml 05/29/21 06/27/21 Rx (2.5 mg base)/3 mL nebulization soln lactobacillus combination no.4 3 3,000 mmu cells PO QAM 06/04/21 06/27/21 History billion cell capsule (Probiotic) lorazepam 1 mg tablet 1 mg PO DAILY PRN 06/04/21 06/27/21 History tramadol 50 mg tablet 50 mg PO Q6H PRN #30 tab 06/23/21 06/27/21 Rx levofloxacin 500 mg tablet 500 mg PO DAILY 10 Days #10 tab 06/27/21 Rx prednisone 50 mg tablet 50 mg PO DAILY 5 Days #5 tab 06/27/21 Rx Past Med/Surg History Medical History Anxiety Asthma stable Bronchiectasis F/U DR SALAMANCA PREVIOUSLY-NOW ASSIGNED DR SLAVA REDDY-NEW PT Recent hx of "aspergillus fumigatus tracheobronchitis" - treated and deemed optimized for surgery per pulm Cardiac murmur A CHILD Hx of rheumatic fever Cervical spinal stenosis Pain improved with injections Depression Diarrhea chronic s/p nacho Fibromyalgia GERD (gastroesophageal reflux disease) Well controlled and stable Glaucoma Follows routinely with eye doctor Hiatal hernia large History of basal cell carcinoma s/p removed from nose- Mohs procedure History of pneumothorax Post-op lung biopsy, chest tube inserted (approx 2015) Hypertension 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 Gentile) and general surgery (Dr. Yates/referred to pain clinic-DX'D CRUSHED VERTEBRAE Iron deficiency anemia under surveillance s/p iron infusion (04/2020) Right shoulder pain SOB (shortness of breath) on exertion Chronic Surgical History H/O arthroscopy of knee Right knee H/O chest tube placement (03/02/09) By Dr. Yates, patient had lung biopsy in [place] and developed a pneumo, #20 chest tube inserted H/O hemorrhoidectomy History of basal cell carcinoma (BCC) excision History of cardiac cath - NO FINDINGS/NO STENT(S) History of cholecystectomy History of colonoscopy History of D&C History of esophagogastroduodenoscopy (EGD) History of repair of right rotator cuff X2 History of tooth extraction Status post reverse arthroplasty of right shoulder (~06/2020) Family History Mother Hypertension Father Hypertension Other Family history non-contributory No family history of adverse response to anesthesia Social History Smoking Status: Former smoker Tobacco Type: Cigarettes Second Hand Exposure: Yes; Do You Dip or Chew Tobacco: No; Tobacco Cessation Education Requested by Patient: No Hx Alcohol Use: Yes Alcohol type: wine Hx Substance Use: No Preferred Language: Danish Communication Ability: Effective 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 Required: No Beliefs That Will Affect Care: None marital status: Current Living Situation: Spouse 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 Other Information That Helps Us Care for You: No Feels Safe at Home: Yes Safety Concerns: Feels Safe At This Time Seatbelt Use: always Assistive Devices: Denture - Upper, Denture - Lower, Glasses and Oxygen - Continuous Review of Systems Review of Systems: as per HPI Physical Exam Constitutional: WD/WN, vitals as above cooperative; no acute distress Eyes: + anicteric sclerae ENMT: external ear and nose normal, oropharynx normal Neck: trachea midline Respiratory: normal respiratory effort; no respiratory distress, no labored breathing and does not use accessory muscles Auscultation: + crackles (inspiratory, diffusely throughout b/l lung darnell); no wheezes Cardiovascular: RRR, no murmur, no edema Heart Sounds: normal S1 and normal S2 Extremities: no pedal edema Gastrointestinal (Abdomen): normal bowel sounds, soft, nontender, no hepatosplenomegaly Skin: no rashes, warm and dry Psychiatric: A+Ox3, euthymic affect Results & Data Results & Data ([facility]) Vital Signs (Past 12 Hours) Vital Signs Temp Pulse Pulse Resp BP BP Pulse Ox 06/27/21 20:20 87 L 06/27/21 20:00 108 H 20 144/69 H 93 06/27/21 18:00 102 H 16 137/83 95 06/27/21 17:03 79 20 97 06/27/21 16:37 95 06/27/21 16:29 89 16 137/83 96 06/27/21 16:05 36.7 C 99 H 20 134/71 92 Supervising Physician Co-Signing Physician Notes Attending addendum: I have physically seen this patient, have supervised the medical residents activities, and agree with the H&P unless as otherwise noted. Assessment and Plan: Multifocal pneumonia/COPD as noted on CT Aztreonam IV Duonebs every 4 hours while awake and every 2 hours when necessary. Order MRSA swab, add vancomycin IV if positive Guaifenesin extended release 600 mg p.o. twice daily Hold oral prednisone Solu-Medrol 40 mg IV every 12 hours, will also help address possible adrenal insufficiency due to chronic prednisone use Remaining orders and notations as noted Resident Activity Tracking Resident Involvement: Resident Care Provided Care Provided: Adult Hospital Medicine (1) Pneumonia Laterality: bilateral Lung location: unspecified part of lung Pneumonia type: due to unspecified organism Qualified Code(s): J18.9 - Pneumonia, unspecified organism
[2021-06-27] MEDS ORDERED: ALBUT/IPRATROP 3MG/0.5MG NEB 3 ML VIAL INH PRN (23:57)
[2021-06-27] MEDS ORDERED: POLYETHYLENE (MIRALAX) 17 GM PACK PO PRN (23:57)
[2021-06-27] MEDS ORDERED: ONDANSETRON INJ 2 MG/ML 2 ML VIAL IV PRN (23:57)
[2021-06-28] MEDS ORDERED: ALBUTEROL HFA 8 GM INHALER INH PRN (00:20)
[2021-06-28 00:58] LABS: D Dimer 320 ug/L FEU (0-500)
[2021-06-28] MEDS: AZTREONAM 2,000 MG in DEXTROSE 5% 100 ML IV SCH ×3 (01:52→17:45)
[2021-06-28] MEDS: ACETAMINOPHEN 500 MG TAB PO PRN ×2 (08:21→17:47)
[2021-06-28] MEDS: ENOXAPARIN INJ 40 MG/0.4 ML SYR SQ SCH (08:21)
[2021-06-28] MEDS: ADVANCED PROBIOTIC 1250 MG CAPSULE PO SCH (08:22)
[2021-06-28] MEDS: LOSARTAN/HCTZ 50/12.5MG TAB PO SCH (08:22)
[2021-06-28] MEDS: FLUoxetine HCL 20 MG CAP PO SCH (08:22)
[2021-06-28 08:39] LABS: Hematocrit (blood only) 35.1 % (37-47); Hemoglobin 11.3 g/dL (12.0-16.0); Immature Granulocytes # (auto) 0.04 K/uL (0.00-0.02); Immature Granulocytes % (auto) 0.7 %; Lymphocytes # (auto) 0.45 K/uL (1.2-3.4); Lymphocytes % (auto) 7.7 %; Mean Corpuscular Hemoglobin 32.3 pg (25-34); Mean Corpuscular Hgb Conc 32.2 g/dL (32-36); Mean Corpuscular Volume 100.3 fL (80-100); Mean Platelet Volume 8.6 fL (7.4-10.4); Monocytes # (auto) 0.33 K/uL (0.11-0.59); Monocytes % (auto) 5.7 %; Neutrophils % (auto) 85.9 %; Platelet Count 284 K/uL (130-400); RDW Coefficient of Variation 12.5 % (11.5-14.5); RDW Standard Deviation 45.6 fL (36.4-46.3); White Blood Count 5.82 K/uL (4.8-10.8)
[2021-06-28] MEDS ORDERED: PANTOprazole 40 MG TAB PO SCH (09:00)
[2021-06-28] MEDS ORDERED: predniSONE 10 MG TABLET PO SCH (09:00)
[2021-06-28 09:03] LABS: BUN Creatinine Ratio 20.3 (10-20); Calcium 9.4 mg/dl (8.5-10.1); Est GFR (African American) 79.4 ml/min; Est GFR (Non-African American) 68.5 ml/min; Potassium 3.7 mmol/L (3.5-5.1)
--- NOTE | 2021-06-28 09:36 | Electrocardiogram Report ---
Test Reason : Blood Pressure : / mmHG Vent. Rate : 088 BPM Atrial Rate : 088 BPM P-R Int : 130 ms QRS Dur : 116 ms QT Int : 362 ms P-R-T Axes : 010 -70 064 degrees QTc Int : 438 ms Normal sinus rhythm with sinus arrhythmia Left atrial enlargement Incomplete left bundle block Abnormal ECG When compared with ECG of 09-JUN-2021 15:21, No significant change was found Confirmed by Misael Coronado ([id number]) on 06/28/2021 9:36:03 AM Referred By: REFERRED SELF Confirmed By:Misael Coronado
[2021-06-28] MEDS: FORMOTEROL 20 MCG/2 ML VIAL NEB SCH ×2 (09:44→19:19)
[2021-06-28] MEDS ORDERED: BUDESONIDE 0.5 MG/2 ML VIAL (PULMICORT) NEB SCH (11:35)
--- NOTE | 2021-06-28 12:21 | Hospitalist Progress Note ---
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 Will Add Levaquin (for double antipseudomonal coverage for VAP and coverage for strenotrophomonas given Sulfa allergy). * I have consulted pulmonology- appreciated recommendations. Spoke with Dr. Reddy who is recommending addition of Flagyl for added gram neg coverage and reports that the aspergillus is likely colonization * In addition, I have consulted ID to help with empiric abx guidance with this patient's h/o MDR/polymicrobial organisms. * may need bactrim with desensitization? * I have added Perforomist. Will avoid Pulmicort given Aspergillus hx. Continue Duoneb but make routine * Add Acapella Flutter Valve * sputum cultures added * hold PPI/continue H2 blanca (given mild immunosuppression reported with PPI therapy) (2) Hypoxia: Plan: * continue supplemental O2 with goal pulse ox of 90% (and no greater than 92% given h/o COPD) (3) Obstructive airway disease: Plan: * likely with component of AECOPD. * Add IV steroids given poor air exchange. (4) Hypertension: Plan: * continue Norvasc as prior to hospitalization (5) Anxiety: Plan: * continue prozac (6) Depression: Plan: * continue prozac (7) Gastroesophageal reflux: Plan: * continue H2 blanca/hold PPI (as outlined above) Plan: * lovenox for DVT prophylaxis. * plan of care D/W Dr. Weller. Further orders as warrented. Admission and Anticipated Discharge Date Admission Date: June 27, 2021 Subjective Mrs. Fry is a 60 y/o WF with a PMHx of chronic lung disease (bronchiectasis, COPD and being worked up for cystic fibrosis-- follows Pulm), along with HTN, GERD and depression. She was hospitalized on 06/27 for Multilobar PNA with hypoxemia (87% on RA). She apparently just underwent Kyphoplasty on 06/23. Was in her usual state of health but the following day, had increased and productive cough with green and blood streaked sputum along with increased SWAIN and mild SOB at rest. Denied fevers but was chilled. Was noted to be hypoxic (87% on RA) upon presentation into the ED. Does not typically wear O2. CTA showed no evidence of PE but multifocal groundglass opacities. Covid was negative. No significant leukocytosis. BNP was 1157. Admitted and empirically started on Azactam. Does have a PCN and Sulfa allergy. No significant change in symptoms. Requiring 2L supplemental O2 to keeps sats at 94%. Last seen by Pulm 05/18: I had an extensive and lengthy discussion with both the patient and her . The first thing we need to do is notify Dr. Duarte's office to cancel the impending surgery on April 21 for intervention and surgical Rx for the T12 radiculopathy and the need for general anesthesia. Patient's respiratory status takes precedence. Patient has significant chronic bronchiectasis as well as COPD and a remote but significant smoking history from age [age] at one pack of cigarettes a day. She is dyspneic at rest and chronically fatigued and has experienced some weight loss w poor appetite w/in last 6 mos. I believe this is all from chronic disease although an underlying neoplasm will need to be ruled out(doubt) I would like to treat her with a 16-day course of prednisone and levofloxacin 500 mg daily x14 days. (Previous BAL culture of Stenotrophomonas maltophilia shows an MRO pattern) I would like her to use her nebulizer with DuoNeb solution every 4 hours along with 7% normal saline twice daily in addition her flutter valve must be used 3-4 times daily. Once her T12 radiculopathy has undergone surgical intervention ,her vibration vest must be used religiously as well as tolerated. I would like to add Dornase to her regimen daily as an inhaled mucolytic and treat her more aggressively as a patient with certain traits and characteristics of Cystic Fibrosis. Down the road we may have to consider intervention with a robotic laparoscopic Silvano fundoplication as I believe her large hiatal hernia is contributing as well to her symptomatology. I have stressed to both the patient and her that we need to take very seriously both treatment and maintenance therapy for her underlying lung disease as I believe her lung function and progressive symptomatology have definitely worsened since her last visit close to 6 mos ago. History of Present Illness I last saw patient in the pulmonary clinic on 10/15/2020. PFTs were just performed on 04/07/2021 with marked reduction in both FEV1 and FVC and normal ratio and with essentially normal lung volumes although significant air trapping was noted. Excellent response to bronchodilator shown.. This is the first visit since they returned from [place], [place]. She has had an excellent response to the right reverse arthroplasty performed last year by Dr. Barry in June 2020. Patient is scheduled with Dr. Duarte to undergo additional spine surgery at the T12 level under general anesthesia April 21. Because of the pain in that region she has been unable to use her vibration vest without causing even more severe discomfort. She states she has had a" terrible winter" with severe fatigue and dyspnea with exertion as well as purulent phlegm production and chronic chest tightness. She is only using a ProAir metered-dose inhaler as needed and has not been using any maintenance inhaler or even her nebulizer. She rarely uses the 7% normal saline via neb and only on occasion uses her flutter valve. 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 Previous bronchoscopy with BAL(2018) grew out a multitude of organisms including Aspergillus fumigatus, Stenotrophomonas maltophilia and Mycobacterium abscessus. We did discuss undergoing a laparoscopic Silvano fundoplication in the past but she was going to [place] and several other orthopedic surgical procedures were being contemplated at that time. Patient has had her Covid vaccination x2 and previous Prevnar 13 and Pneumovax polyvalent vaccination and gets yearly flu vaccinations. PFTs recently showed a marked reduction in FEV1 and forced vital capacity with a normal ratio but an excellent response to bronchodilator shown and lung volumes were essentially normal except for significant air trapping. Previous lab studies showed Aspergillus fumigatus IgG antibodies were markedly elevated at 50.1 mcg/ml. IgE level was low and Asperg illus galactomannan antigen was not detected. QuantiFERON gold was negative. 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 Last CT scan with contrast done at the [facility] Radiology suite on 09/16/2020 showed clustered centrilobular nodularity with air trapping/ small airway mucus plugging and mild bronchiolectasis in the anterior lung zones of the lingula and right middle lobe with an overall worsening compared to previous CT scan of 07/19/2019. Compression fracture of T12 vertebral body with minimal bony retropulsion is new since 07/19/2019. Review of Systems Review of Systems: all systems reviewed and are unremarkable except as noted in HPI and below + SOB/SWAIN, cough- productive with green sputum that is blood tinged. Denies fevers, headache, nasal congestion, sore throat, chest pain, orthopnea, PND, edema, abdominal pain, nausea, vomiting, dysuria, hematuria, frequency, skin lesions or rashes. Physical Exam Physical Exam: General: Resting comfortably in her hospital bed. NAD. Neck: No JVD. Negative hepatojugular reflex Cardiac: RRR but distant Lungs:speaking full sentences on supplemental O2. Significantly diminished breath sounds throughout with end expiratory wheezes in the bases. Abdomen: Normoactive X4. Soft and nontender in all quadrants. Extremities: No peripheral clubbing cyanosis or edema Neuro: A&O X4 cranial nerves II through XII are grossly intact no focal neuro deficits Skin: No obvious skin lesions or rashes Results & Data Results & Data ([facility]) Vital Signs (Past 12 Hours) Vital Signs Temp Pulse Pulse Resp BP BP Pulse Ox 06/28/21 12:00 37 C 111 H 18 138/72 95 06/28/21 09:41 75 18 96 06/28/21 08:00 36.8 C 81 18 122/72 94 06/28/21 04:00 37.2 C 82 18 145/69 H 93 06/28/21 00:24 79 Laboratory Results 06/28/21 08:24 06/28/21 08:24 Bronch Culture Final 07/26/19-1249 Organism 1 Stenotrophomonas maltophilia Quantity Moderate Sens Sensitivities to Follow Normal Stephy Moderate Normal Stephy Organism 2 Aspergillus fumigatus Quantity Rare Sens No Sensitivities to Follow Steno malt RX M.I.C. --- --------- Ceftazidime R >16 Levofloxacin I 4 Trimeth/Sulfa S <=2/38 PG Care Time/CCT Total # of Minutes Spent Total Time Spent with Patient: Total time spent is greater than 50% in coordination of care (as documented) at patient's floor/unit and/or counseling patient: 60 including time spent with patient and reviewing old records. [place] [address] Subseq Hosp Care Lvl 3 Patient Type Established History Comprehensive Exam Comprehensive Diagnoses Pneumonia J18.9 Laterality: bilateral Lung location: unspecified part of lung Pneumonia type: due to unspecified organism Hypoxia R09.02 Obstructive airway disease J44.9 Hypertension I10 Anxiety F41.9 Depression F32.9 Gastroesophageal reflux K21.9 Esophagitis presence: esophagitis presence not specified (1) Gastroesophageal reflux Esophagitis presence: esophagitis presence not specified Qualified Code(s): K21.9 - Gastro-esophageal reflux disease without esophagitis (2) Pneumonia Laterality: bilateral Lung location: unspecified part of lung Pneumonia type: due to unspecified organism Qualified Code(s): J18.9 - Pneumonia, unspecified organism
[2021-06-28] MEDS: ALBUT/IPRATROP 3MG/0.5MG NEB 3 ML VIAL INH SCH ×2 (13:23→19:19)
[2021-06-28] MEDS: methylPREDNISolone 80 MG in SYRINGE 0 ML IV SCH ×2 (14:52→22:14)
[2021-06-28] MEDS: metroNIDAZOLE 500 MG/100 ML BAG IV SCH ×2 (14:52→22:14)
[2021-06-28] MEDS: LORazepam 1 MG TAB PO PRN (20:58)
[2021-06-28] MEDS: amLODIPine BESYLATE 5 MG TAB PO SCH (20:59)
[2021-06-28] MEDS: traZODone HCL 50 MG TAB PO PRN (20:59)
[2021-06-28] MEDS: LATANOPROST 0.005% OP SOLN 2.5 ML BTL OP SCH (20:59)
[2021-06-29] MEDS: AZTREONAM 2,000 MG in DEXTROSE 5% 100 ML IV SCH ×3 (02:31→18:03)
--- NOTE | 2021-06-29 04:49 | Billing Data ---
Date of Service June 29, 2021 Coding Level of Care Code 72882 Initial Inpt Care Lvl 3
[2021-06-29] MEDS: methylPREDNISolone 80 MG in SYRINGE 0 ML IV SCH ×2 (06:28→13:44)
[2021-06-29] MEDS: metroNIDAZOLE 500 MG/100 ML BAG IV SCH ×3 (06:28→21:04)
[2021-06-29 07:52] LABS: Hemoglobin 11.2 g/dL (12.0-16.0); Immature Granulocytes # (auto) 0.05 K/uL (0.00-0.02); Immature Granulocytes % (auto) 0.6 %; Lymphocytes # (auto) 0.48 K/uL (1.2-3.4); Lymphocytes % (auto) 5.6 %; Mean Corpuscular Hemoglobin 31.9 pg (25-34); Mean Corpuscular Volume 99.7 fL (80-100); Mean Platelet Volume 8.8 fL (7.4-10.4); Monocytes # (auto) 0.33 K/uL (0.11-0.59); Monocytes % (auto) 3.8 %; Neutrophils # (auto) 7.76 K/uL (1.4-6.5); Platelet Count 295 K/uL (130-400); RDW Coefficient of Variation 12.4 % (11.5-14.5); RDW Standard Deviation 45.5 fL (36.4-46.3); Red Blood Count 3.51 M/uL (4.2-5.4); White Blood Count 8.62 K/uL (4.8-10.8)
[2021-06-29 07:53] LABS: Estimated Average Glucose 134 mg/dl; Hemoglobin A1C 6.3 % (4.5-5.6)
[2021-06-29 08:19] LABS: Calcium 8.9 mg/dl (8.5-10.1); Creatinine Clr Calc Pharmacy 45.7 ml/min; Est GFR (African American) 76.1 ml/min; Est GFR (Non-African American) 65.6 ml/min; Magnesium 2.3 mg/dl (1.8-2.4); Potassium 3.3 mmol/L (3.5-5.1)
[2021-06-29] MEDS: ENOXAPARIN INJ 40 MG/0.4 ML SYR SQ SCH (08:49)
[2021-06-29] MEDS: ADVANCED PROBIOTIC 1250 MG CAPSULE PO SCH (08:49)
[2021-06-29] MEDS: FLUoxetine HCL 20 MG CAP PO SCH (08:49)
[2021-06-29] MEDS: LOSARTAN/HCTZ 50/12.5MG TAB PO SCH (08:49)
[2021-06-29] MEDS: ALBUT/IPRATROP 3MG/0.5MG NEB 3 ML VIAL INH SCH ×2 (09:02→13:14)
[2021-06-29] MEDS: FORMOTEROL 20 MCG/2 ML VIAL NEB SCH ×2 (09:02→19:58)
--- NOTE | 2021-06-29 09:16 | Pulmonary Consultation ---
Date of Consultation June 29, 2021 Assessment & Plan (1) Pneumonia: Laterality: bilateral Lung location: unspecified part of lung Pneumonia type: due to unspecified organism Qualified Code(s): J18.9 - Pneumonia, unspecified organism (2) Acute respiratory failure with hypoxia: (3) Bronchiectasis: (4) Multiple pulmonary nodules: Patient had previous bronchoscopy done in 2019 which grew out Aspergillus fumigatus, stenotrophomonas maltophilia and Mycobacterium abscesses. None of them were treated as they were thought to be colonizers. In the past patient has been negative for gold QuantiFERON, coccidioidal as well as histoplasma antigen have been negative. PFTs 04/07/2021 personally reviewed: Nonspecific spirometry, significant bronchodilator response, air trapping, normal lung volume, mild decrease in DLCO/VA FVC 1.34 L, 54%, FEV1 1.95 L, 51%, FEV1/FVC 70% (LLN 67%), TLC 93%, RV/TLC 147%, DLCO 62%, DLCO/VA 96% CT chest 06/27/2021 personally reviewed: Bilateral lower lobe opacities especially in the right lower lobe, groundglass opacities in the lingula as well as the right upper lobe Minimal upper lobe bronchiectasis Large hiatal hernia --Acute hypoxic respiratory failure secondary to multilobar pneumonia Positive aspiration Patient does have chronic fleeting infiltrates with tree-in-bud opacities Given patient recently had T12 kyphoplasty done 4 days ago Continue with antibiotics Aspiration precautions O2 supplementation to keep oxygen saturation between 90-92% --Bronchiectasis Mild bilateral upper lobe As per the previous 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 Patient has had kids as well as grandkids. I do not think patient has CF and dornase simin nebulized would not be beneficial for the patient. 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 as an outpatient Continue with 7% hypertonic saline along with flutter valve --Multiple pulmonary nodules Waxing and waning Patient apparently had autoimmune work-up as well as biopsy done in the past all of which have been nondiagnostic --Nonspecific spirometry with air trapping We will continue with nebulizers as needed Would not give the patient ICS component inhalers --Chronic prednisone dependence I am not sure why the patient is on chronic prednisone Usually in patients who have bronchiectasis 1 would like to keep away from steroids --Ex-smoker Quit at the age of 48 Plan: Continue with antibiotics with atypical coverage Can you with hypertonic saline nebulized along with flutter valve Decrease Solu-Medrol to 40 mg daily and then would like to titrated off to her baseline dose. Would also consider getting the patient off of prednisone as I do not think it is helping I do not think patient has Aspergillus or Mycobacterium abscesses infection No plan for bronchoscopy currently Please note the above document was generated using voice recognition software. It may contain grammatical, syntax or spelling errors.Any formal questions or concerns about the content, text or information contained within the body of this dictation should be directly addressed to the provider for clarification. History of Present Illness Attending Physician: Juve Machado DO History of Present Illness 76-year-old female with past medical history of hiatal hernia, air-trapping, bronchiectasis, remote smoking history presents to the hospital with complaints of worsening shortness of breath and cough going on since couple of days. 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 She had been following up with Dr. Gentile. Pulmonary consulted because of complicated pulmonary history At the time of examination patient states she is feeling better compared to when she came to the hospital. She is having cough but she is unable to bring up any phlegm. She has been using nebulized hypertonic saline at home along with vest therapy. Denies any fever or chills. No dysuria, no diarrhea. No headache, no dizziness. Social history: [id number] smoking history quit at the age of 48, no illicit drug use Allergies Allergy/AdvReac Type Severity Reaction Status Date / Time DEMIAN Inhibitors Allergy Unknown hallucinati Verified 06/27/21 16:24 ons Penicillins Allergy Unknown Hives Verified 06/27/21 16:24 ranitidine [From Zantac] Allergy Unknown Unknown Verified 06/27/21 16:24 Sulfa (Sulfonamide Allergy Unknown rash Verified 06/27/21 16:24 Antibiotics) valsartan [From Diovan] Allergy Unknown Possible Verified 06/27/21 16:24 cough verapamil [From Covera-HS] Allergy Unknown Cough Verified 06/27/21 16:24 BOWEL PREP AdvReac Unknown vomiting, Uncoded 06/27/21 16:24 syncope Home Medications Medication Instructions Recorded Confirmed Type latanoprost 0.005 % eye drops 1 drops OP HS ml 08/21/18 06/27/21 History (Xalatan) albuterol sulfate 90 mcg/actuation 2 puffs INH Q4H PRN #18 gm 07/05/19 06/27/21 Rx aerosol inhaler (ProAir HFA) cyanocobalamin (vitamin B-12) 500 500 mcg PO QAM 05/19/20 06/27/21 History mcg tablet amlodipine 10 mg tablet (Norvasc) 10 mg PO QPM #90 tab 07/07/20 06/27/21 Rx acetaminophen 500 mg tablet 1,000 mg PO QID PRN 09/26/20 06/27/21 History (Tylenol Extra Strength) omeprazole 40 mg capsule,delayed 40 mg PO QAM #90 cap 01/29/21 06/27/21 Rx release trazodone 50 mg tablet 50 mg PO HS PRN #90 tab 03/13/21 06/27/21 Rx losartan 100 1 tab PO QAM #90 tab 03/23/21 06/27/21 Rx mg-hydrochlorothiazide 25 mg tablet fluoxetine 20 mg capsule 20 mg PO QAM 03/27/21 06/27/21 History nebulizers #1 ea 04/09/21 06/15/21 Rx sodium chloride 7 % for 4 ml INHALATION BID PRN #1 ml 04/09/21 06/27/21 Rx nebulization prednisone 10 mg tablet 10 mg PO DAILY #90 tab 05/11/21 06/27/21 Rx ipratropium 0.5 mg-albuterol 3 mg 3 ml INHALATION Q6H PRN #180 ml 05/29/21 06/27/21 Rx (2.5 mg base)/3 mL nebulization soln lactobacillus combination no.4 3 3,000 mmu cells PO QAM 06/04/21 06/27/21 History billion cell capsule (Probiotic) lorazepam 1 mg tablet 1 mg PO DAILY PRN 06/04/21 06/27/21 History tramadol 50 mg tablet 50 mg PO Q6H PRN #30 tab 06/23/21 06/27/21 Rx levofloxacin 500 mg tablet 500 mg PO DAILY 10 Days #10 tab 06/27/21 Rx prednisone 50 mg tablet 50 mg PO DAILY 5 Days #5 tab 07/31/21 Rx Patient History Medical History Anxiety Asthma stable Bronchiectasis F/U DR SALAMANCA PREVIOUSLY-NOW ASSIGNED DR SLAVA LEVI-GONZALEZ PT Recent hx of "aspergillus fumigatus tracheobronchitis" - treated and deemed optimized for surgery per pulm Cardiac murmur A CHILD Hx of rheumatic fever Cervical spinal stenosis Pain improved with injections Depression Diarrhea chronic s/p nacho Fibromyalgia GERD (gastroesophageal reflux disease) Well controlled and stable Glaucoma Follows routinely with eye doctor Hiatal hernia large History of basal cell carcinoma s/p removed from nose- Mohs procedure History of pneumothorax Post-op lung biopsy, chest tube inserted (approx 2015) Hypertension 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 Gentile) and general surgery (Dr. Yates/referred to pain clinic-[facility]'D CRUSHED [facility]TEBRAE Iron deficiency anemia under surveillance s/p iron infusion (04/2020) Right shoulder pain SOB (shortness of breath) on exertion Chronic Surgical History H/O arthroscopy of knee Right knee H/O chest tube placement (03/02/09) By Dr. Yates, patient had lung biopsy in [place] and developed a pneumo, #20 chest tube inserted H/O hemorrhoidectomy History of basal cell carcinoma (BCC) excision History of cardiac cath - NO FINDINGS/NO STENT(S) History of cholecystectomy History of colonoscopy History of D&C History of esophagogastroduodenoscopy (EGD) History of repair of right rotator cuff X2 History of tooth extraction Status post reverse arthroplasty of right shoulder (~06/2020) Family History Mother Hypertension Father Hypertension Other Family history non-contributory No family history of adverse response to anesthesia Social History Smoking Status: Former smoker Tobacco Type: Cigarettes Second Hand Exposure: Yes; Do You Dip or Chew Tobacco: No; Tobacco Cessation Education Requested by Patient: No Hx Alcohol Use: Yes Alcohol type: wine Hx Substance Use: No Preferred Language: Tanzanian Communication Ability: Effective Industrial Eng Required: No Beliefs That Will Affect Care: None marital status: Current Living Situation: Spouse 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 Other Information That Helps Us Care for You: No Feels Safe at Home: Yes Safety Concerns: Feels Safe At This Time Seatbelt Use: always Assistive Devices: Walker Review of Systems Review of Systems: All systems reviewed & are unremarkable except as noted in HPI & below Physical Exam Physical Exam: Constitutional: No acute distress HEENT: EOMI, PERRLA Respiratory system: Decreased air entry bilaterally, no wheeze, positive rhonchi bilaterally, positive crackles CVS: S1-S2 positive, no murmurs or gallops Abdomen: Soft, nontender, nondistended, positive bowel sounds x4 Extremities: +2 pulses bilaterally radialis/ dorsalis pedis, no cyanosis, no edema, no clubbing Neuro: Awake alert oriented x3 Psych: Normal mood and affect G/U: No Garcia Skin: no rashes, warm and dry Lymphatic: no cervical or axillary lymphadenopathy Results & Data Results & Data ([facility]) Vital Signs (Past 12 Hours) Vital Signs Temp Pulse Pulse Resp BP BP Pulse Ox 06/29/21 09:05 98 H 16 96 06/29/21 07:47 63 06/29/21 07:42 36.8 C 75 16 121/57 L 96 06/29/21 03:07 37.1 C 74 18 116/61 95 06/28/21 23:10 36.7 C 85 18 117/73 95 06/28/21 22:20 86 06/29/21 07:07 06/29/21 07:07 PG Care Time/CCT Total # of Minutes Spent Total Time Spent with Patient: Total time spent is greater than 50% in coordination of care (as documented) at patient's floor/unit and/or counseling patient: Coding Level of Care Code 85017 Initial Inpt Care Lvl 3 Diagnoses Pneumonia J18.9 Laterality: bilateral Lung location: unspecified part of lung Pneumonia type: due to unspecified organism Acute respiratory failure with hypoxia J96.01 Bronchiectasis J47.9 Multiple pulmonary nodules R91.8
[2021-06-29] MEDS ORDERED: POTASSIUM CHLORIDE CRTAB 20 MEQ TABCR PO ONE (13:30)
--- NOTE | 2021-06-29 17:40 | Hospitalist Progress Note ---
Date of Service June 29, 2021 Assessment & Plan (1) Pneumonia: Plan: Mrs. Abraham is a 76 yo woman with a PMHx of chronic lung disease who presented for evaluation of progressive dyspnea, found to be hypoxic on room air. * patient with Multilobar PNA following Kyphoplasty (VAP) * patient is complicated in regards to empiric Tx given h/o MDR/polymicrobial organisms seen with Bronch/washout (strenotrophomonas- reported sensitive to only Bactrim and pt with Sulfa allergy / Mycobacterium Abscessus- had QuantiFERON gold that was negative / Aspergillus) * for now, continue Azactam/Levaquin (for double antipseudomonal coverage for VAP and coverage for strenotrophomonas given Sulfa allergy) along with flagyl as recommended by Pulm. * ID consulted-- appreciated recommendations * sputum culture obtained-- hopefully this can help guids abx therapy * DC DuoNeb and transition to single agent albuterol with continued Perforomist. Pulmicort avoided given history of aspergillus colonization * Continue Acapella valve/Mucinex * Avoid chest PT given recent kyphoplasty I have consulted pulmonology- appreciated recommendations. Spoke with Dr. Reddy who is recommending addition of Flagyl for added gram neg coverage and reports that the aspergillus is likely colonization In addition, I have consulted ID to help with empiric abx guidance with this patient's h/o MDR/polymicrobial organisms. may need bactrim with desensitization? hold PPI/continue H2 blanca (given mild immunosuppression reported with PPI therapy) (2) Hypoxia: Plan: * continue supplemental O2 with goal pulse ox of 90% (and no greater than 92% given h/o COPD) (3) Obstructive airway disease: Plan: * likely with component of AECOPD. * cont IV steroids along with nebulizer treatments and mucolytic agents (4) Anemia: Plan: - Hgb 11 - MCV 102 - folate and B12 levels checked and WNL in 08/2020 (5) Depression: Plan: - continue home dose fluoxetine (6) Hypertension: Plan: - continue home BP medication regimen (7) Hiatal hernia with gastroesophageal reflux: Plan: -Currently on H2 blanca/hold PPI (as outlined above) Plan: Dvt ppx: Lovenox 40mg SQ daily Plan of care to be discussed with Dr. Machado. Further orders as warranted. Admission and Anticipated Discharge Date Admission Date: June 27, 2021 Subjective Patient seen on daily rounds today. Overall no significant change in symptomatology. Cough has become much less productive. Feels as "she needs to get it up but she cannot ". Is not short of breath at rest while on supplemental oxygen. 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 Patient has had multiple bronchoscopies and has since grown Mycobacterium, multidrug-resistant strenotrophomonasmultidrug-resistant, and Aspergillus. As stated prior, she recently underwent kyphoplasty requiring general anesthesia. Pulmonology has since evaluated the patient and reports that her aspergillus is colonization. Patient on empiric Azactam/Levaquin. Pulmonology recommended addition of Flagyl. Overall, patient's white blood cell count has remained within normal limits. She is afebrile. Pulse ox is 95% on 2 L. Again, does not wear chronic O2. Blood sugars have been elevated (190s). An A1c was obtained and normal at 6.3. Likely steroid-induced. Review of Systems Review of Systems: All systems reviewed and are unremarkable except as noted in HPI and below Denies fevers, chills, headache, nasal congestion, sore throat, chest pain, shortness of breath, abdominal pain, nausea, vomiting, dysuria, hematuria, frequency, skin lesions or rashes. Physical Exam Physical Exam: General: Resting comfortably in her hospital bed. NAD. Neck: No JVD. Negative hepatojugular reflex Cardiac: RRR without M/G/R Lungs: Speaking full sentences on supplemental oxygen. Significantly improved air exchange throughout with rhonchi in the bases that mobilizes but does not clear with coughing. Persistent egophony at the right base Abdomen: Normoactive X4. Soft and nontender in all quadrants. Extremities: No peripheral clubbing cyanosis or edema Neuro: A&O X4 cranial nerves II through XII are grossly intact no focal neuro deficits Skin: No obvious skin lesions or rashes Results & Data Results & Data ([facility]) Vital Signs (Past 12 Hours) Vital Signs Temp Pulse Pulse Resp BP Pulse Ox 06/29/21 15:44 36.9 C 96 H 16 136/68 93 06/29/21 13:15 96 H 18 91 06/29/21 11:14 37.0 C 70 16 118/66 95 06/29/21 09:05 98 H 16 96 06/29/21 07:47 63 06/29/21 07:42 36.8 C 75 16 121/57 L 96 Laboratory Results 06/29/21 07:07 06/29/21 07:07 PG Care Time/CCT Total # of Minutes Spent Total Time Spent with Patient: Total time spent is greater than 50% in coordination of care (as documented) at patient's floor/unit and/or counseling patient: Coding [place] [address] Subseq Hosp Care Lvl 2 Patient Type Established History Expanded Problem Focused Exam Expanded Problem Focused Medical Decision Making Moderate Complexity Diagnoses Pneumonia J18.9 Laterality: bilateral Lung location: unspecified part of lung Pneumonia type: due to unspecified organism Hypoxia R09.02 Obstructive airway disease J44.9 Anemia D64.9 Depression F32.9 Hypertension I10 Hiatal hernia with gastroesophageal reflux K21.9; K44.9 (1) Pneumonia Laterality: bilateral Lung location: unspecified part of lung Pneumonia type: due to unspecified organism Qualified Code(s): J18.9 - Pneumonia, unspecified organism
[2021-06-29] MEDS: levoFLOXacin/D5W 750 MG/150 ML BAG IV SCH (19:11)
[2021-06-29] MEDS: ALBUTEROL 0.083% NEBU SOLN 3 ML VIAL NEB SCH (19:58)
[2021-06-29] MEDS: SODIUM CHLOR 7% 4 ML NEB NEB SCH (20:06)
[2021-06-29] MEDS: amLODIPine BESYLATE 5 MG TAB PO SCH (20:19)
[2021-06-29] MEDS: LATANOPROST 0.005% OP SOLN 2.5 ML BTL OP SCH (20:20)
[2021-06-29] MEDS: guaiFENesin 600 MG TABCR PO SCH (20:20)
[2021-06-29] MEDS: LORazepam 1 MG TAB PO PRN (21:14)
[2021-06-29] MEDS: traZODone HCL 50 MG TAB PO PRN (21:14)
[2021-06-30] MEDS: AZTREONAM 2,000 MG in DEXTROSE 5% 100 ML IV SCH ×3 (01:47→16:57)
[2021-06-30] MEDS: metroNIDAZOLE 500 MG/100 ML BAG IV SCH ×3 (05:44→21:42)
[2021-06-30 05:50] LABS: Hematocrit (blood only) 32.3 % (37-47); Hemoglobin 10.4 g/dL (12.0-16.0); Immature Granulocytes % (auto) 0.7 %; Lymphocytes # (auto) 0.52 K/uL (1.2-3.4); Lymphocytes % (auto) 3.9 %; Mean Corpuscular Hemoglobin 32.2 pg (25-34); Mean Corpuscular Hgb Conc 32.2 g/dL (32-36); Mean Platelet Volume 8.5 fL (7.4-10.4); Monocytes # (auto) 0.87 K/uL (0.11-0.59); Monocytes % (auto) 6.5 %; Neutrophils # (auto) 11.93 K/uL (1.4-6.5); Neutrophils % (auto) 88.9 %; Platelet Count 274 K/uL (130-400); RDW Coefficient of Variation 12.4 % (11.5-14.5); RDW Standard Deviation 45.6 fL (36.4-46.3); Red Blood Count 3.23 M/uL (4.2-5.4); White Blood Count 13.42 K/uL (4.8-10.8)
[2021-06-30 06:29] LABS: BUN Creatinine Ratio 34.5 (10-20); Calcium 8.9 mg/dl (8.5-10.1); Creatinine Clr Calc Pharmacy 37.7 ml/min; Est GFR (African American) 60.3 ml/min; Potassium 3.9 mmol/L (3.5-5.1)
[2021-06-30] MEDS: FORMOTEROL 20 MCG/2 ML VIAL NEB SCH ×2 (07:35→19:20)
[2021-06-30] MEDS: ALBUTEROL 0.083% NEBU SOLN 3 ML VIAL NEB SCH ×3 (07:35→19:20)
[2021-06-30] MEDS: LOSARTAN/HCTZ 50/12.5MG TAB PO SCH (07:54)
[2021-06-30] MEDS: FLUoxetine HCL 20 MG CAP PO SCH (07:54)
[2021-06-30] MEDS: ENOXAPARIN INJ 40 MG/0.4 ML SYR SQ SCH (07:54)
[2021-06-30] MEDS: ADVANCED PROBIOTIC 1250 MG CAPSULE PO SCH (07:55)
[2021-06-30] MEDS: guaiFENesin 600 MG TABCR PO SCH ×3 (08:33→20:31)
[2021-06-30] MEDS: PANTOprazole 40 MG TAB PO SCH (08:33)
[2021-06-30] MEDS ORDERED: methylPREDNISolone 40 MG in SYRINGE 0 ML IV SCH (09:00)
--- NOTE | 2021-06-30 11:07 | Pulmonology Progress Note ---
Date of Service June 30, 2021 Assessment & Plan (1) Pneumonia: Laterality: bilateral Lung location: unspecified part of lung Pneumonia type: due to unspecified organism Qualified Code(s): J18.9 - Pneumonia, unspecified organism (2) Acute respiratory failure with hypoxia: (3) Bronchiectasis: (4) Multiple pulmonary nodules: Plan: Patient had previous bronchoscopy done in 2019 which grew out Aspergillus fumigatus, stenotrophomonas maltophilia and Mycobacterium abscesses. None of them were treated as they were thought to be colonizers. In the past patient has been negative for gold QuantiFERON, coccidioidal as well as histoplasma antigen have been negative. PFTs 04/07/2021 personally reviewed: Nonspecific spirometry, significant bronchodilator response, air trapping, normal lung volume, mild decrease in DLCO/VA FVC 1.34 L, 54%, FEV1 1.95 L, 51%, FEV1/FVC 70% (LLN 67%), TLC 93%, RV/TLC 147%, DLCO 62%, DLCO/VA 96% CT chest 06/27/2021 personally reviewed: Bilateral lower lobe opacities especially in the right lower lobe, groundglass opacities in the lingula as well as the right upper lobe Minimal upper lobe bronchiectasis Large hiatal hernia --Acute hypoxic respiratory failure secondary to multilobar pneumonia Possible aspiration Patient does have chronic fleeting infiltrates with tree-in-bud opacities Given patient recently had T12 kyphoplasty done 4 days ago Continue with antibiotics Aspiration precautions O2 supplementation to keep oxygen saturation between 90-92% --Bronchiectasis Mild bilateral upper lobe As per the previous 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 Patient has had kids as well as grandkids. 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 Continue with 7% hypertonic saline along with flutter valve --Multiple pulmonary nodules Waxing and waning Patient apparently had autoimmune work-up as well as biopsy done in the past all of which have been nondiagnostic --Nonspecific spirometry with air trapping We will continue with nebulizers as needed Would not give the patient ICS component inhalers --Chronic prednisone dependence I am not sure why the patient is on chronic prednisone Usually in patients who have bronchiectasis 1 would like to keep away from steroids --Ex-smoker Quit at the age of 48 Plan: Continue with antibiotics with atypical coverage Continue hypertonic saline nebulized along with flutter valve DC Solu-Medrol. Starting tomorrow can give prednisone 40 mg for 3 days followed by 20 mg for 2 and then she can go home on 10 mg of prednisone to be taken for 3 days followed by 5 mg for 5 days and then stop Patient has been on chronic prednisone for approximately 7 months, 5 mg on a daily basis up until April 2021 when it was increased to 10 mg for the surgical procedure which she had done I do not see any indication for patient to be on prednisone when it comes to pulmonary perspective. On asking why she was on prednisone the reason she stated was because of back pain and shoulder pain Patient will need repeat CT chest in approximately 8 weeks Please note the above document was generated using voice recognition software. It may contain grammatical, syntax or spelling errors.Any formal questions or concerns about the content, text or information contained within the body of this dictation should be directly addressed to the provider for clarification. Admission and Anticipated Discharge Date Admission Date: June 27, 2021 Subjective Patient seen and examined at bedside. No acute distress, no adverse events overnight. Patient is doing well when it comes to her breathing. He says that shortness of breath is improved. She is not coughing up much. Has been using the flutter valve. No hemoptysis Review of Systems Review of Systems: All systems reviewed & are unremarkable except as noted in Subjective Physical Exam Physical Exam: Constitutional: No acute distress HEENT: EOMI, PERRLA Respiratory system: Decreased air entry bilaterally, no wheeze, positive rhonchi bilaterally, positive crackles CVS: S1-S2 positive, positive 3 out of 6 systolic murmur appreciated best at the aorta Abdomen: Soft, nontender, nondistended, positive bowel sounds x4 Extremities: +2 pulses bilaterally radialis/ dorsalis pedis, no cyanosis, no ed nelson, no clubbing Neuro: Awake alert oriented x3 Psych: Normal mood and affect G/U: No Garcia Skin: no rashes, warm and dry Lymphatic: no cervical or axillary lymphadenopathy Results & Data Results & Data ([facility]) Vital Signs (Past 12 Hours) Vital Signs Temp Pulse Pulse Resp BP BP Pulse Ox 06/30/21 07:39 36.9 C 77 16 134/75 96 08/03/21 07:37 76 16 96 06/30/21 07:25 70 06/30/21 03:12 36.6 C 75 18 115/62 95 06/29/21 23:26 36.8 C 90 16 112/62 94 06/30/21 05:36 06/30/21 05:36 PG Care Time/CCT Total # of Minutes Spent Total Time Spent with Patient: Total time spent is greater than 50% in coord ination of care (as documented) at patient's floor/unit and/or counseling patient: Coding Level of Care Code 15717 Subseq Hosp Care Lvl 3 Diagnoses Pneumonia J18.9 Laterality: bilateral Lung location: unspecified part of lung Pneumonia type: due to unspecified organism Acute respiratory failure with hypoxia J96.01 Bronchiectasis J47.9 Multiple pulmonary nodules R91.8
[2021-06-30] MEDS: SODIUM CHLOR 7% 4 ML NEB NEB SCH ×2 (12:58→19:20)
[2021-06-30] MEDS ORDERED: ALUMINUM/MAGNESIUM SUSP 30 ML UDC PO PRN (14:22)
[2021-06-30] MEDS ORDERED: ZOLPIDEM TARTRATE 5 MG TAB PO PRN (14:22)
[2021-06-30] MEDS: ACETAMINOPHEN 500 MG TAB PO PRN (14:32)
--- NOTE | 2021-06-30 17:48 | Hospitalist Progress Note ---
Date of Service June 30, 2021 Assessment & Plan (1) Pneumonia: Plan: Mrs. Abraham is a 76 yo woman with a PMHx of chronic lung disease who presented for evaluation of progressive dyspnea, found to be hypoxic on room air. 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 Given her large HH and risk for aspiration * Unfortunately, her sputum culture is not helpful as it showing only normal tomy * Will de-escalate antibiotic therapy to Flagyl/Levaquin and continue to monitor clinically * ID consulted-- appreciated recommendations * Continue Perforomist and albuterol along with incentive spirometry and A capella valve. * Chest PT being avoided given her recent kyphoplasty I have consulted pulmonology- appreciated recommendations. Spoke with Dr. Reddy who is recommending addition of Flagyl for added gram neg coverage and reports that the aspergillus is likely colonization In addition, I have consulted ID to help with empiric abx guidance with this patient's h/o MDR/polymicrobial organisms. may need bactrim with desensitization? Initially, PPI was on hold due to mild immunocompromised state that this causes. She is having uncontrolled reflux and has since been started back on PPI therapy in addition to the H2 blanca (2) Hypoxia: Plan: * No longer requiring supplemental oxygen. * will continue to monitor. * Will need a two-step prior to discharge (3) Obstructive airway disease: Plan: * likely with component of AECOPD. * Significantly improved air exchange throughout. IV steroids converted to oral. Will need to continue to taper (4) Leukocytosis: Plan: * Presumed steroid-induced as patient showing clinical improvement (5) Anemia: Plan: - Hgb 11 - MCV 102 - folate and B12 levels checked and WNL in 08/2020 (6) Depression: Plan: - continue home dose fluoxetine (7) Hypertension: Plan: - continue home BP medication regimen (8) Hiatal hernia with gastroesophageal reflux: Plan: -Continue H2 blanca/PPI. H&H may be contributing to some questionable aspiration Plan: Dvt ppx: Lovenox 40mg SQ daily Antibiotic regimen will be deescalated. We will continue to monitor closely and watch for worsening leukocytosis/fever/worsening of symptoms. Will need a two-step pulse oximetry prior to discharge Awaiting ID consult Plan for suspected discharge within the next 24 to 48 hours Plan of care will be discussed with Dr. Machado Admission and Anticipated Discharge Date Admission Date: June 27, 2021 Subjective Patient seen on daily rounds today. Vocalizes subtle improvement in symptomatology. She denies shortness of breath at rest. Cough continues but seems to be able to expectorate which she believes is cau sing less shortness of breath. still getting slightly winded when toileting. WBC count elevated today; however, transition from Solu-Medrol to oral prednisone this morning Denies F/C, CP, orthopnea, PND, abdominal pain, nausea, vomiting, GI/ symptomatology. Review of Systems Review of Systems: All systems reviewed and are unremarkable except as noted in HPI and below Denies fevers, chills, headache, nasal congestion, sore throat, cough, chest pain, shortness of breath, abdominal pain, nausea, vomiting, dysuria, hematuria, frequency, skin lesions or rashes. Physical Exam Physical Exam: General: Resting comfortably in her hospital bed. Does not appear ill or toxic Neck: No JVD. Negative hepatojugular reflex Cardiac: RRR but distant Lungs: Speaking full sentences on ambient air. Significantly improved air exchange throughout without wheezes, rales or rhonchi today Abdomen: Normoactive X4. Soft and nontender in all quadrants. Extremities: No peripheral clubbing cyanosis or edema Neuro: A&O X4 cranial nerves II through XII are grossly intact no focal neuro deficits Skin: No obvious skin lesions or rashes Results & Data Results & Data ([facility]) Vital Signs (Past 12 Hours) Vital Signs Temp Pulse Pulse Resp BP Pulse Ox 06/30/21 15:50 37.1 C 80 16 115/69 92 06/30/21 13:00 93 H 18 92 06/30/21 11:48 37.1 C 75 16 123/58 L 90 06/30/21 07:39 36.9 C 77 16 134/75 96 06/30/21 07:37 76 16 96 06/30/21 07:25 70 Laboratory Results 06/30/21 05:36 06/30/21 05:36 Gram Stain Final 06/29/21-0754 Gram Stain Result Many Polys Rare Gram Positive Cocci No Epithelial Cells Sputum Culture Final 06/30/21-0838 Moderate normal tomy. PG Care Time/CCT Total # of Minutes Spent Total Time Spent with Patient: Total time spent is greater than 50% in coordination of care (as documented) at patient's floor/unit and/or counseling patient: [place] [address] Subseq Hosp Care Lvl 2 Patient Type Established History Expanded Problem Focused Exam Expanded Problem Focused Medical Decision Making Moderate Complexity Diagnoses Pneumonia J18.9 Laterality: bilateral Lung location: unspecified part of lung Pneumonia type: due to unspecified organism Hypoxia R09.02 Obstructive airway disease J44.9 Anemia D64.9 Depression F32.9 Hypertension I10 Hiatal hernia with gastroesophageal reflux K21.9; K44.9 Leukocytosis D72.829 (1) Pneumonia Laterality: bilateral Lung location: unspecified part of lung Pneumonia type: due to unspecified organism Qualified Code(s): J18.9 - Pneumonia, unspecified organism
[2021-06-30] MEDS: LATANOPROST 0.005% OP SOLN 2.5 ML BTL OP SCH (20:22)
[2021-06-30] MEDS: amLODIPine BESYLATE 5 MG TAB PO SCH (20:22)
[2021-06-30] MEDS: LORazepam 1 MG TAB PO PRN (20:27)
[2021-06-30] MEDS: traZODone HCL 50 MG TAB PO PRN (20:27)
[2021-06-30] MEDS: NYSTATIN SUSP 500,000 U/5 ML UDC PO SCH (21:44)
[2021-07-01] MEDS: metroNIDAZOLE 500 MG/100 ML BAG IV SCH (06:34)
[2021-07-01] MEDS: ALBUTEROL 0.083% NEBU SOLN 3 ML VIAL NEB SCH ×2 (07:14→13:17)
[2021-07-01] MEDS: FORMOTEROL 20 MCG/2 ML VIAL NEB SCH (07:16)
[2021-07-01] MEDS: SODIUM CHLOR 7% 4 ML NEB NEB SCH (07:16)
[2021-07-01 07:43] LABS: Basophils # (auto) 0.01 K/uL (0-0.2); Basophils % (auto) 0.1 %; Eosinophils # (auto) 0.01 K/uL (0-0.5); Eosinophils % (auto) 0.1 %; Hematocrit (blood only) 32.5 % (37-47); Hemoglobin 10.4 g/dL (12.0-16.0); Immature Granulocytes # (auto) 0.21 K/uL (0.00-0.02); Immature Granulocytes % (auto) 1.8 %; Lymphocytes # (auto) 1.51 K/uL (1.2-3.4); Lymphocytes % (auto) 12.8 %; Mean Corpuscular Hemoglobin 31.9 pg (25-34); Mean Corpuscular Volume 99.7 fL (80-100); Mean Platelet Volume 8.5 fL (7.4-10.4); Monocytes # (auto) 0.75 K/uL (0.11-0.59); Monocytes % (auto) 6.4 %; Neutrophils # (auto) 9.29 K/uL (1.4-6.5); Neutrophils % (auto) 78.8 %; Platelet Count 300 K/uL (130-400); RDW Coefficient of Variation 12.7 % (11.5-14.5); RDW Standard Deviation 46.5 fL (36.4-46.3); Red Blood Count 3.26 M/uL (4.2-5.4); White Blood Count 11.78 K/uL (4.8-10.8)
[2021-07-01] MEDS: ADVANCED PROBIOTIC 1250 MG CAPSULE PO SCH ×2 (08:18→09:15)
[2021-07-01] MEDS: LOSARTAN/HCTZ 50/12.5MG TAB PO SCH (08:19)
[2021-07-01] MEDS: PANTOprazole 40 MG TAB PO SCH (08:19)
[2021-07-01] MEDS: FLUoxetine HCL 20 MG CAP PO SCH (08:19)
[2021-07-01] MEDS: guaiFENesin 600 MG TABCR PO SCH (08:20)
[2021-07-01] MEDS: NYSTATIN SUSP 500,000 U/5 ML UDC PO SCH (08:21)
[2021-07-01] MEDS: ENOXAPARIN INJ 40 MG/0.4 ML SYR SQ SCH (08:25)
[2021-07-01 08:30] LABS: BUN Creatinine Ratio 34.3 (10-20); Calcium 8.6 mg/dl (8.5-10.1); Creatinine Clr Calc Pharmacy 48.7 ml/min; Est GFR (African American) 81.8 ml/min; Est GFR (Non-African American) 70.6 ml/min; Potassium 3.3 mmol/L (3.5-5.1)
--- NOTE | 2021-07-01 08:31 | Pulmonology Progress Note ---
Date of Service July 01, 2021 Assessment & Plan (1) Pneumonia: Laterality: bilateral Lung location: unspecified part of lung Pneumonia type: due to unspecified organism Qualified Code(s): J18.9 - Pneumonia, unspecified organism (2) Acute respiratory failure with hypoxia: (3) Bronchiectasis: (4) Multiple pulmonary nodules: Plan: Patient had previous bronchoscopy done in 2019 which grew out Aspergillus fumigatus, stenotrophomonas maltophilia and Mycobacterium abscesses. None of them were treated as they were thought to be colonizers. In the past patient has been negative for gold QuantiFERON, coccidioidal as well as histoplasma antigen have been negative. PFTs 04/07/2021 personally reviewed: Nonspecific spirometry, significant bronchodilator response, air trapping, normal lung volume, mild decrease in DLCO/VA FVC 1.34 L, 54%, FEV1 1.95 L, 51%, FEV1/FVC 70% (LLN 67%), TLC 93%, RV/TLC 147%, DLCO 62%, DLCO/VA 96% CT chest 06/27/2021 personally reviewed: Bilateral lower lobe opacities especially in the right lower lobe, groundglass opacities in the lingula as well as the right upper lobe Minimal upper lobe bronchiectasis Large hiatal hernia --Acute hypoxic respiratory failure secondary to multilobar pneumonia Possible aspiration Patient does have chronic fleeting infiltrates with tree-in-bud opacities Given patient recently had T12 kyphoplasty done 4 days ago Continue with antibiotics Aspiration precautions O2 supplementation to keep oxygen saturation between 90-92% --Bronchiectasis Mild bilateral upper lobe As per the previous 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 Patient has had kids as well as grandkids. Patient has been on regimen of dornase simin by her candy catcher as an outpatient I do not think patient has CF and dornase simin nebulized would not be beneficial for the patient. Continue with 7% hypertonic saline along with flutter valve --Multiple pulmonary nodules Waxing and waning Patient apparently had autoimmune work-up as well as biopsy done in the past all of which have been nondiagnostic --Nonspecific spirometry with air trapping We will continue with nebulizers as needed Would not give the patient ICS component inhalers --Chronic prednisone dependence I am not sure why the patient is on chronic prednisone Usually in patients who have bronchiectasis 1 would like to keep away from steroids --Ex-smoker Quit at the age of 48 Plan: Continue with antibiotics with atypical coverage Taper prednisone 40 mg for 3 days followed by 20 mg for 2 and then she can go home on 10 mg of prednisone to be taken for 3 days followed by 5 mg for 5 days a nd then stop Patient has been on chronic prednisone for approximately 7 months, 5 mg on a daily basis up until April 2021 when it was increased to 10 mg for the surgical procedure which she had done I do not see any indication for patient to be on prednisone when it comes to pulmonary perspective. On asking why she was on prednisone the reason she stated was because of back pain and shoulder pain Patient will need repeat CT chest in approximately 8 weeks Please note the above document was generated using voice recognition software. It may contain grammatical, syntax or spelling errors.Any formal questions or concerns about the content, text or information contained within the body of this dictation should be directly addressed to the provider for clarification. Admission and Anticipated Discharge Date Admission Date: June 27, 2021 Subjective Patient seen and examined at bedside. No acute distress, no adverse events overnight. Patient was saturating 96% on room air at the time of examination Denied any chest pain, shortness of breath improved. Denies any chest pain. Fair appetite. No nausea vomiting. Review of Systems Review of Systems: All systems reviewed & are unremarkable except as noted in Subjective Physical Exam Physical Exam: Constitutional: No acute distress HEENT: EOMI, PERRLA Respiratory system: Decreased air entry bilaterally, no wheeze, no rhonchi, positive crackles CVS: S1-S2 positive, positive 3 out of 6 systolic murmur appreciated best at the aorta Abdomen: Soft, nontender, nondistended, positive bowel sounds x4 Extremities: +2 pulses bilaterally radialis/ dorsalis pedis, no cyanosis, no edema, no clubbing Neuro: Awake alert oriented x3 Psych: Normal mood and affect G/U: No Garcia Skin: no rashes, warm and dry Lymphatic: no cervical or axillary lymphadenopathy Results & Data Results & Data ([facility]) Vital Signs (Past 12 Hours) Vital Signs Pulse Resp Pulse Ox 07/01/21 07:19 73 18 92 07/01/21 07:12 PG Care Time/CCT Total # of Minutes Spent Total Time Spent with Patient: Total time spent is greater than 50% in coordination of care (as documented) at patient's floor/unit and/or counseling patient: Coding Level of Care Code 82575 Subseq Hosp Care Lvl 2 Diagnoses Pneumonia J18.9 Laterality: bilateral Lung location: unspecified part of lung Pneumonia type: due to unspecified organism Acute respiratory failure with hypoxia J96.01 Bronchiectasis J47.9 Multiple pulmonary nodules R91.8
[2021-07-01] MEDS ORDERED: predniSONE 20 MG TAB PO SCH (09:00)
[2021-07-01] MEDS: levoFLOXacin/D5W 750 MG/150 ML BAG IV SCH (10:21)
[2021-07-01] MEDS ORDERED: levoFLOXacin 750 MG TAB PO ONE (11:30)
--- NOTE | 2021-07-01 17:06 | Discharge Summary ---
Date of Service July 01, 2021 Admission HPI Per Admitting Provider Primary Care Provider: Cirilo Macias MD Mrs. Abraham is a 76 yo woman who presented to the [facility] ED for evaluation of progressive shortness of breath over the past 1-2 days. She has not had any fevers/chills, cough, chest pain, nausea/vomiting, diarrhea, rashes. No preceding lower extremity swelling or redness. She does have underlying chronic lung disease - it has been characterized as a moderate obstructive ventilatory defect that responds to bronchodilator. She takes prednisone 10mg daily. She previously followed with Dr. Gentile in [place] Pulmonology but plans to establish with Dr. Reddy. She has been vaccinated against COVID 19, Prevnar and Pneumovax. Of note, she had surgery by Dr. Duarte (T12 kyphoplasty) 4 days ago. She states her post-surgical pain is well controlled - not even needing to use Tylenol at this point. In the ED, she was febrile with a mildly elevated HR to 108 bpm, normal BP, RR of 20 and O2 sat of 87% on RA. Her WBC was mildly elevated to 11, Hgb mildly decreased to 11.6. CMP was normal. Trop undectable. BNP not elevated. CXR showing a large hiatal hernia. CT chest showing a multifocal ground glass opacities and trace b/l pleural effusions. She was given a nebulizer treatment, Methylprednisolone 125mg, and Levaquin 750mg orally. Admission Exam Per Admitting Provider Constitutional: WD/WN, vitals as above cooperative; no acute distress Eyes: + anicteric sclerae ENMT: external ear and nose normal, oropharynx normal Neck: trachea midline Respiratory: normal respiratory effort; no respiratory distress, no labored breathing and does not use accessory muscles Auscultation: + crackles (inspiratory, diffusely throughout b/l lung darnell); no wheezes Cardiovascular: RRR, no murmur, no edema Heart Sounds: normal S1 and normal S2 Extremities: no pedal edema Gastrointestinal (Abdomen): normal bowel sounds, soft, nontender, no hepatosplenomegaly Skin: no rashes, warm and dry Psychiatric: A+Ox3, euthymic affec Principal Diagnosis Working diagnoses: 1. Multilobar pneumonia 2. Hypoxemiaresolved 3. Obstructive airway disease/bronchiectasis 4. Leukocytosislikely steroid-induced and resolved 5. Anemiachronic 6. HTNcontrolled with meds Discharge Data Allergies Allergy/AdvReac Type Severity Reaction Status Date / Time Penicillins Allergy Intermediate Hives Verified 06/29/21 18:46 Sulfa (Sulfonamide Allergy Intermediate rash Verified 06/29/21 18:46 Antibiotics) ranitidine [From Zantac] Allergy Unknown Unknown Verified 06/27/21 16:24 DEMIAN Inhibitors AdvReac Intermediate hallucinati Verified 06/29/21 18:46 ons valsartan [From Diovan] AdvReac Mild Possible Verified 06/29/21 18:46 cough verapamil [From Covera-HS] AdvReac Mild Cough Verified 06/29/21 18:46 Consultations 06/27/21 20:25 ED Decision to Admit Stat 06/28/21 12:32 Consult Pulmonology Routine Plan: Continue with antibiotics with atypical coverage Can you with hypertonic saline nebulized along with flutter valve Decrease Solu-Medrol to 40 mg daily and then would like to titrated off to her baseline dose. Would also consider getting the patient off of prednisone as I do not think it is helping I do not think patient has Aspergillus or Mycobacterium abscesses infection No plan for bronchoscopy currently Ordered Studies 06/27/21 18:21 CT angio chest PE protocol Stat IMPRESSION: 1. There is no evidence of pulmonary embolus in the main, lobar, or segmental pulmonary arteries. 2. There is multifocal groundglass consolidation throughout both lungs, with more patchy nodular consolidation in the lower lobes. The appearance is typical for multifocal pneumonia and clinical correlation will be required. 3. Given the patchy/nodular appearance of the consolidation and a follow-up chest CT in 3-4 months time is recommended to document resolution. 5. Numerous additional tiny pulmonary nodules and chronic parenchymal changes are similar to prior studies. 6. Cardiomegaly and trace pleural effusions. 7. Large hiatal hernia. 8. Additional findings as above. Hospital Course (1) Pneumonia: Mrs. Abraham is a 76 yo woman with a PMHx of chronic lung disease who presented for evaluation of progressive dyspnea, found to be hypoxic on room air . 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 Pt has continued to do well and is no longer requiring supplemental oxygen. * ID consulted--unfortunately, yet to be seen. At this point, will cancel consult as I do not think there is any added value here. Patient is responding to Levaquin/Flagyl combination. We will continue this. Pulmonology has examined her and said that the aspergillus is colonization. Her Mycobacterium and strenotrophomonas have been successfully treated * Okay to discharge to home with continued antibiotic therapy with renal adjustment * Continue neb treatments and Acapella flutter valve as outlined by pulmonology. * Chest PT being avoided given her recent kyphoplasty * Will continue tapering course of prednisonediscontinuation of this as outlined by pulmonology. Patient was taken 10 mg prior to this admission. Seen by pulmonology while in house and reports no need for ongoing prednisone therapy. Can taper over the next week. Initially, PPI was on hold due to mild immunocompromised state that this causes. She is having uncontrolled reflux and has since been started back on PPI therapy in addition to the H2 blanca (2) Hypoxia: * No longer requiring supplemental oxygen. * Two-step pulse oximetry done showing no need for supplemental oxygen at rest nor with ambulation (3) Obstructive airway disease: * likely with component of AECOPD. * Significantly improved air exchange throughout. IV steroids converted to oral. Will need to continue to taper (4) Leukocytosis: * Presumed steroid-induced as patient showing clinical improvement (5) Anemia: - Hgb 11 - MCV 102 - folate and B12 levels checked and WNL in 08/2020 (6) Depression: - continue home dose fluoxetine (7) Hypertension: - continue home BP medication regimen (8) Hiatal hernia with gastroesophageal reflux: -Continue H2 blanca/PPI. H&H may be contributing to some questionable aspiration (9) Thrush: -Patient developed pain in her mouth under her denture plate last evening and today it has progressed into her lips. She was ordered nystatin liquid by the on-call resident. -Unfortunately, with tapering course of prednisone and antibiotic therapy, this does pose increased risk of thrush -Will discharge with Mycelex X 5 days along with liquid nystatin for her to soak her dentures Discharged home with continued antibiotic therapy, tapering course of prednisone, Mycelex/nystatin for thrush and follow-up with PCP and cardiology as an outpatient Total Time Total Time Spent Total Time Spent (In Minutes): 60 Discharge Plan Discharge Items Patient Disposition: Home - Self-Care Reason For Visit: PNEUMONIA Discharge Diagnosis: 1. Multilobar Pneumonia 2. Thrush 3. Hypokalemia- replaced and resolved Activity: Resume your previous activity Activity Comment: as tolerated Non-emergency contact: Primary Care Provider and Mechanical Developer Prover Call non-emergency contact if: you have any medication questions Follow-up/Referrals: Cirilo Macias MD [Primary Care Provider] - 07/08/21 1:30 pm (Your appointment is with the physician investment sales assistant, Brittany Dickson. If you have any questions or need to change this appointment, please call [phone].) Diet: Heart Healthy Addtl Attending Provider Instructions: - complete full course of antibiotic therapy: -- levaquin is every 48 hours (next dose due 07/03)- adjusted based on renal function -- Flagyl is 3x a day (do not take with alcohol as will cause severe GI upset. May cause a metallic taste in mouth) - use mycelex 5x/day until gone for thrush - soak dentures in liquid nystatin overnight x 1 week (and can use liquid nystatin on external mouth every 6 hours) - take tapering course of prednisone (start tomorrow) and taper down to your usual 10mg dose - use neb treatments and flutter valve as prior to hospitalization - follow up with pulmonary: 2-4 weeks. You will need a follow up CT of the chest in 4-6 weeks (at the discretion of PCP) - return to the ED for new or worsening symptoms Pending Studies at Discharge: No Stand-Alone Forms: My [employer] Medications and DC Order Prescriptions: New nystatin 100,000 unit/mL suspension 50 ml PO DAILY Qty: 500 RF: 1 prednisone 10 mg tablet 10 mg PO DIRECTED Qty: 20 RF: 0 levofloxacin 750 mg tablet 750 mg PO Q48H Qty: 3 RF: 0 metronidazole [Flagyl] 500 mg tablet 500 mg PO Q8H Qty: 12 RF: 0 clotrimazole 10 mg radha 10 mg PO 5XD Qty: 35 RF: 0 Continued latanoprost [Xalatan] 0.005 % drops 1 drops OP HS RF: 0 albuterol sulfate [ProAir HFA] 90 mcg/actuation HFA aerosol inhaler 2 puffs INH Q4H PRN (Reason: shortness of breath) Qty: 18 RF: 5 omeprazole 40 mg capsule,delayed release(DR/EC) 40 mg PO QAM Qty: 90 RF: 1 trazodone 50 mg tablet 50 mg PO HS PRN (Reason: Insomnia) Qty: 90 RF: 1 losartan-hydrochlorothiazide 100-25 mg tablet 1 tab PO QAM Qty: 90 RF: 3 ipratropium-albuterol 0.5 mg-3 mg(2.5 mg base)/3 mL solution for nebulization 3 ml inhalation Q6H PRN (Reason: wheezing) Qty: 180 RF: 5 (DME) nebulizers Misc See Rx Instructions .ROUTE .MEDSUPPLY Qty: 1 RF: 0 sodium chloride 7 % solution for nebulization 4 ml inhalation BID PRN (Reason: chest congestion) Qty: 1 RF: 5 cyanocobalamin (vitamin B-12) 500 mcg Tablet 500 mcg PO QAM RF: 0 acetaminophen [Tylenol Extra Strength] 500 mg tablet 1,000 mg PO QID PRN (Reason: Pain) RF: 0 lorazepam 1 mg tablet 1 mg PO DAILY PRN (Reason: Insomnia) RF: 0 fluoxetine 20 mg capsule 20 mg PO QAM RF: 0 Discontinued prednisone 10 mg tablet 10 mg PO DAILY Qty: 90 RF: 0 No Action amlodipine [Norvasc] 10 mg tablet 10 mg PO QPM Qty: 90 RF: 0 Discharge Orders: Discharge Order (Routine); Ordered 07/01/21 Ordered By: Brittany Tanner/Other Patient Handouts: Understanding Bronchiectasis Admission Data Admit Date/Time: 06/27/21 21:37 Attending Provider: Juve Machado Admit Provider: Vera Peres Primary Care Provider: Cirilo Macias Other Providers: Paulino Martines ; Sheridan Reddy Other Interventions: Discharge Summary Assessment (RN) Last Done: 07/01/21 09:40 Supervising Physician Co-Signing Physician Notes Patient seen and examined on the day of discharge. I agree with the discharge summary by Brittany GONZALES. I have reviewed the chart including labs, imaging and plans for discharge. Physical exam: elderly female, no distress, AAOx3, well nourished lungs CTA bilaterally, normal respiratory effort heart regular S1/S2, no murmurs, no edema, + pulses bilaterally abdomen soft, ND, NT, + Bowel sounds neuro: CN II-XII intact, moving all extremities, no focal deficits, speaking clearly skin: warm, dry, no rashes MSK: normocephalic, atraumatic, strength 5/5 bilaterally A/P: multilobar pneumonia responded well to IV antibiotics, will send home on levaquin and Flagyl taper Prednisone follow up with PCP and with pulmonology Coding Level of Care Code Established Pt D/C DAY MANAGEMENT >30 MINS Patient Type Established Diagnoses Pneumonia J18.9 Laterality: bilateral Lung location: unspecified part of lung Pneumonia type: due to unspecified organism Hypoxia R09.02 Obstructive airway disease J44.9 Leukocytosis D72.829 Anemia D64.9 Depression F32.9 Hypertension I10 Hiatal hernia with gastroesophageal reflux K21.9; K44.9 Thrush B37.0 Time Spent (min) 60
== END 2021-07-01 13:59 | disposition home or self-care (01) | DRG 205 ==
LOC: ED 16:01 → SUATTDRO 21:37 → 2W 21:37

== ENCOUNTER 2025-07-08 06:09 | Inpatient (IN) ==
--- NOTE | 2025-04-25 10:25 | PAT Medication Instructions ---
Medication Instructions Date of Service April 25, 2025 Home Medications Medication Instructions Recorded nebulizers #1 ea 04/09/21 sodium chloride 7 % for 4 ml inhalation BID PRN chest 10/16/21 nebulization congestion #1 mL hydrocortisone 2.5 % topical cream 1 applic topical TID PRN skin 11/13/21 irritation #30 grams fluticasone propionate 50 2 spray intranasal DAILY #16 grams 02/07/24 mcg/actuation nasal spray,suspension (Allergy Relief (fluticasone)) albuterol sulfate 90 mcg/actuation 2 puff inhalation Q4H PRN 04/26/24 aerosol inhaler (ProAir HFA) shortness of breath #18 grams losartan 100 1 tab PO QAM #90 tabs 05/14/24 mg-hydrochlorothiazide 25 mg tablet transport chair #1 ea 06/05/24 potassium chloride 10 mEq 30 meq (3 x 10 mEq) PO BID #540 06/18/24 tablet,extended release (Klor-Con) tabs amlodipine 10 mg tablet (Norvasc) 10 mg PO QPM #90 tabs 09/14/24 trazodone 50 mg tablet See Rx Instructions PO HS PRN 09/24/24 Insomnia #180 tabs fluoxetine 20 mg capsule 40 mg (2 x 20 mg) PO QAM #180 caps 11/23/24 Wheeled Walker #1 ea 12/21/24 omeprazole 40 mg capsule,delayed 40 mg PO BID #180 caps 12/21/24 release umeclidinium 62.5 mcg-vilanterol 1 inh inhalation DAILY #180 ea 04/08/25 25 mcg/actuation powdr for inhalation (Anoro Ellipta) lorazepam 1 mg tablet 1 mg PO DAILY PRN Insomnia #90 tabs 04/11/25 zoledronic acid 4 mg/5 mL 4 mg (5 mL) IV ONCE #5 mL 04/14/25 intravenous solution prednisone 5 mg tablet 5 mg PO QAM #90 tabs 04/19/25 cyanocobalamin (vitamin B-12) 500 mcg tablet 500 mcg PO QAM acetaminophen 500 mg tablet (Tylenol Extra Strength) 1,000 mg PO QID PRN Pain sodium chloride 7 % for nebulization 4 ml inhalation BID PRN chest congestion hydrocortisone 2.5 % topical cream 1 applic topical TID PRN skin irritation fluticasone propionate 50 mcg/actuation nasal spray,suspension (Allergy Relief (fluticasone)) 2 spray intranasal DAILY albuterol sulfate 90 mcg/actuation aerosol inhaler (ProAir HFA) 2 puff inhalation Q4H PRN shortness of breath losartan 100 mg-hydrochlorothiazide 25 mg tablet 1 tab PO QAM potassium chloride 10 mEq tablet,extended release (Klor-Con) 30 meq (3 x 10 mEq) PO BID amlodipine 10 mg tablet (Norvasc) 10 mg PO QPM trazodone 50 mg tablet See Rx Instructions PO HS PRN Insomnia fluoxetine 20 mg capsule 40 mg (2 x 20 mg) PO QAM brimonidine 0.1 % eye drops 1 drp ophthalmic (eye) QAM latanoprost 0.005 % eye drops 1 drp ophthalmic (eye) HS omeprazole 40 mg capsule,delayed release 40 mg PO BID umeclidinium 62.5 mcg-vilanterol 25 mcg/actuation powdr for inhalation (Anoro Ellipta) 1 inh inhalation DAILY lorazepam 1 mg tablet 1 mg PO DAILY PRN Insomnia zoledronic acid 4 mg/5 mL intravenous solution 4 mg (5 mL) IV ONCE prednisone 5 mg tablet 5 mg PO QAM ASK your prescriber and surgeon zoledronic acid 4 mg/5 mL intravenous solution 4 mg (5 mL) IV ONCE STOP taking 24 hours before surgery hydrocortisone 2.5 % topical cream 1 applic topical TID PRN skin irritation DO NOT take the morning of surgery cyanocobalamin (vitamin B-12) 500 mcg tablet 500 mcg PO QAM losartan 100 mg-hydrochlorothiazide 25 mg tablet 1 tab PO QAM potassium chloride 10 mEq tablet,extended release (Klor-Con) 30 meq (3 x 10 mEq) PO BID Take morning of surgery With a small sip of water, OTHERWISE NOTHING TO EAT OR DRINK AFTER MIDNIGHT: acetaminophen 500 mg tablet (Tylenol Extra Strength) 1,000 mg PO QID PRN Pain (if needed) sodium chloride 7 % for nebulization 4 ml inhalation BID PRN chest congestion (if needed) fluticasone propionate 50 mcg/actuation nasal spray,suspension (Allergy Relief (fluticasone)) 2 spray intranasal DAILY albuterol sulfate 90 mcg/actuation aerosol inhaler (ProAir HFA) 2 puff inhalation Q4H PRN shortness of breath (use if needed; please bring rescue inhaler with you to hospital day of surgery if possible) fluoxetine 20 mg capsule 40 mg (2 x 20 mg) PO QAM brimonidine 0.1 % eye drops 1 drp ophthalmic (eye) QAM omeprazole 40 mg capsule,delayed release 40 mg PO BID umeclidinium 62.5 mcg-vilanterol 25 mcg/actuation powdr for inhalation (Anoro Ellipta) 1 inh inhalation DAILY lorazepam 1 mg tablet 1 mg PO DAILY PRN Insomnia (if needed) prednisone 5 mg tablet 5 mg PO QAM Take evening before surgery acetaminophen 500 mg tablet (Tylenol Extra Strength) 1,000 mg PO QID PRN Pain (if needed) sodium chloride 7 % for nebulization 4 ml inhalation BID PRN chest congestion (if needed) albuterol sulfate 90 mcg/actuation aerosol inhaler (ProAir HFA) 2 puff inhalation Q4H PRN shortness of breath (if needed) potassium chloride 10 mEq tablet,extended release (Klor-Con) 30 meq (3 x 10 mEq) PO BID amlodipine 10 mg tablet (Norvasc) 10 mg PO QPM trazodone 50 mg tablet See Rx Instructions PO HS PRN Insomnia (if needed) latanoprost 0.005 % eye drops 1 drp ophthalmic (eye) HS omeprazole 40 mg capsule,delayed release 40 mg PO BID lorazepam 1 mg tablet 1 mg PO DAILY PRN Insomnia (if needed) Other Notes If you have any questions please call us at [phone] or [phone] or [phone] or [phone]
--- NOTE | 2025-04-25 11:03 | Anesthesiology Consultation ---
Date of Service April 25, 2025 Assessment & Plan (1) Encounter for pre-operative examination: Plan - awaiting: confirmed report of 04/23/[address] [facility] [address] 05/14/25 [facility] clearance appt. Chart Review Chart Review: Pending: Refer to Additional Notes / Consult section and Patient seen in Pre Admission Testing Teaching & Discussion Pre-Anesthesia Teaching/Discussion Notes: Instructed NPO after midnight before surgery, except medications with 15 cc of water. Medication instructions provided according to the PAT guidelines. History Surgery Operation Date: 05/22/25 10:05 Proposed Procedures p L1 Kyphoplasty - Dangelo Duarte DO Height/Weight Height: 5 ft 2 in Weight: 63.503 kg Allergies Allergy/AdvReac Type Severity Reaction Status Date / Time gabapentin Allergy Intermediate Diarrhea Verified 04/25/25 10:02 Sulfa (Sulfonamide Allergy Intermediate rash Verified 04/25/25 10:02 Antibiotics) Penicillins Allergy Unknown Rash Verified 04/25/25 10:02 ranitidine [From Zantac] Allergy Unknown Unknown Verified 04/25/25 10:02 DEMIAN Inhibitors AdvReac Intermediate hallucinati Verified 04/25/25 10:02 ons adhesive AdvReac Mild contact Verified 04/25/25 10:02 dermatitis valsartan [From Diovan] AdvReac Mild Possible Verified 04/25/25 10:02 cough verapamil [From Covera-HS] AdvReac Mild Cough Verified 04/25/25 10:02 Medications Home Medications Medication Instructions Recorded Confirmed Last Taken cyanocobalamin (vitamin B-12) 500 500 mcg PO QAM 05/19/20 04/25/25 06/22/21 08:00 mcg tablet acetaminophen 500 mg tablet 1,000 mg PO QID PRN Pain 09/26/20 04/25/25 06/22/21 20:00 (Tylenol Extra Strength) nebulizers #1 ea 04/09/21 04/08/25 Unknown sodium chloride 7 % for 4 ml inhalation BID PRN chest 10/16/21 04/25/25 Unknown nebulization congestion #1 mL hydrocortisone 2.5 % topical cream 1 applic topical TID PRN skin 11/13/21 04/25/25 Unknown irritation #30 grams fluticasone propionate 50 2 spray intranasal DAILY #16 grams 02/07/24 04/25/25 Unknown mcg/actuation nasal spray,suspension (Allergy Relief (fluticasone)) albuterol sulfate 90 mcg/actuation 2 puff inhalation Q4H PRN 04/26/24 04/25/25 Unknown aerosol inhaler (ProAir HFA) shortness of breath #18 grams losartan 100 1 tab PO QAM #90 tabs 05/14/24 04/25/25 Unknown mg-hydrochlorothiazide 25 mg tablet transport chair #1 ea 06/05/24 04/08/25 Unknown potassium chloride 10 mEq 30 meq (3 x 10 mEq) PO BID #540 06/18/24 04/25/25 Unknown tablet,extended release (Klor-Con) tabs amlodipine 10 mg tablet (Norvasc) 10 mg PO QPM #90 tabs 09/14/24 04/25/25 Unknown trazodone 50 mg tablet See Rx Instructions PO HS PRN 09/24/24 04/25/25 Unknown Insomnia #180 tabs fluoxetine 20 mg capsule 40 mg (2 x 20 mg) PO QAM #180 caps 11/23/24 04/25/25 Unknown Wheeled Walker #1 ea 12/21/24 04/08/25 Unknown brimonidine 0.1 % eye drops 1 drp ophthalmic (eye) QAM 12/21/24 04/25/25 Unknown latanoprost 0.005 % eye drops 1 drp ophthalmic (eye) HS 12/21/24 04/25/25 Unknown omeprazole 40 mg capsule,delayed 40 mg PO BID #180 caps 12/21/24 04/25/25 Unknown release umeclidinium 62.5 mcg-vilanterol 1 inh inhalation DAILY #180 ea 04/08/25 04/25/25 Unknown 25 mcg/actuation powdr for inhalation (Anoro Ellipta) lorazepam 1 mg tablet 1 mg PO DAILY PRN Insomnia #90 tabs 04/11/25 04/25/25 Unknown zoledronic acid 4 mg/5 mL 4 mg (5 mL) IV ONCE #5 mL 04/14/25 04/25/25 Unknown intravenous solution prednisone 5 mg tablet 5 mg PO QAM #90 tabs 04/19/25 04/25/25 Unknown Past Medical History Medical History (Updated 04/25/25 @ 14:16 by Rody Moise PA-C) Anxiety Asthma stable; rare rescue inhaler use; pt states recently prescribed Anoro inhaler but 'never uses'; sees [facility] Bronchiectasis follows with [facility] Cardiac murmur A CHILD Hx of rheumatic fever Cervical spinal stenosis Pain improved with injections Closed left hip fracture no surgery; pt states went to rehab facility and completed PT/OT; healed now COPD (chronic obstructive pulmonary disease) pt currently taking prednisone 5mg daily as maintenance; follows with [facility] Depression Diarrhea chronic s/p nacho Fibromyalgia Frequent falls most recently leading to current lumbar issue-last fall 01/2025 per patient and GERD (gastroesophageal reflux disease) Well controlled and stable Glaucoma Follows routinely with eye doctor Hiatal hernia large History of basal cell carcinoma s/p removed from nose- Mohs procedure History of blood transfusion (~2022) after fall and left hip fracture History of pneumothorax Post-op lung biopsy, chest tube inserted (approx 2015) Hypertension controlled, stable per pt Insomnia Iron deficiency anemia under surveillance s/p iron infusion (04/2020) LBBB (left bundle branch block) ongoing since at least 2018 Leukocytosis Multiple pulmonary nodules following with [facility] Osteoporosis scheduled for Reclast infusion 04/2025 Pelvic fracture (12/22/22) Right femoral fracture (~01/10/24) from a fall-had surgery on 01/10/24 Sjogren syndrome SOB (shortness of breath) on exertion Chronic Patient denies h/o stroke, seizures, heart attack, heart failure, DM, blood clots/DVTs or blood transfusions. Exercise / Class Metabolic Activity III < 4 Walking/Shop/Light housework (ambulates with walker, shortness of breath with usual activities ongoing for several years -denies change or worsening; denies chest discomfort) Past Family History Family History Mother Hypertension Father Hypertension Other Family history non-contributory No family history of adverse response to anesthesia Past Surgical History Surgical History (Updated 04/25/25 @ 14:11 by Rody Moise PA-C) H/O cardiac catheterization ; no stents H/O shoulder surgery right RTC History of cholecystectomy History of colonoscopy History of D&C History of esophagogastroduodenoscopy (EGD) History of hemorrhoidectomy History of shoulder replacement R History of surgery on lower extremity right femur fracture S/P right knee arthroscopy Past Anesthesia History No Hx of Anesthesia Complications and No Family Hx of Anesthesia Complications History of PONV No Hx of PONV and No Hx of Motion Sickness Social History Smoking Status: Former smoker tobacco type: cigarettes Do You Dip or Chew Tobacco: No Smoking End Date: Hx Alcohol Use: Yes Alcohol type: wine alcohol intake frequency: holidays/special occasions only Hx Substance Use: No substance use type: does not use Review of Systems Snoring, denies witnessed apneas. Notes negative sleep study several years ago. She denies recent illness, notes that 2 nights ago she slept poorly from pain and yesterday when waking felt fatigued, low appetite, vomited in the morning after having coffee-states was all liquid-denies any coffee ground type emesis or hematemesis-notes that she often has significant GI symptoms if does not follow diet for hernia and had fried food the night before-also had headache la sting longer than usual but states felt like usual headache associated with neck pain from sleeping position-rated 5/10. She notes this happens at times if she had poor sleep. Denies any recent fall or head injury. She denies any recent visual changes. She states that since sleep with resolution of all symptoms she has felt fully at baseline which her confirms. She states had coffee and a blueberry muffin this morning without issue. Denies abdominal pain or blood in stool. Patient denies chest pain, fever, chills, cough, wheezing, or palpitations. Physical Exam Vital Signs Vitals BP 138/72 P 75 TEMP 97.8 SP02 94% on RA RESP 18 Physical Patient resting comfortably in chair in no acute distress, alert and oriented, responding appropriately throughout visit Full cervical extension range of motion without pain TMD 3.5 finger breadths Mallampati Score 2 Dentition: edentulous, full upper and lower dentures Lungs: normal respiratory effort. Good air movement, clear throughout to auscultation, no adventitious breath sounds Cardiac: regular rate and rhythm, no murmurs noted Carotid arteries: negative bruit bilat Lab Results Anesthesia Preop Results Results Anesthesia Widget: WBC 9.40 K/ul (4.8-10.8) 04/08/25 Hgb 10.4 g/dl (12.0-16.0) L 04/08/25 Hct 34.1 % (37.0-47.0) L 04/08/25 Plt 301 K/uL (130-400) 04/08/25 Na 138 mmol/L (136-145) 04/08/25 K 3.8 mmol/L (3.5-5.1) 04/08/25 Cl 100 mmol/L (98-107) 04/08/25 CO2 30 mmol/L (21-32) 04/08/25 BUN 17 mg/dl (6-23) 04/08/25 Creat 0.89 mg/dl (0.6-1.2) 04/08/25 Glucose Level 102 mg/dl (70-99(Fasting)) H 04/08/25 PT 9.8 Seconds (9.0-12.0) 04/25/25 PTT 22 Seconds (21-31) 04/25/25 INR 0.9 (0.9-1.1) 04/25/25 Urine Color Yellow 04/25/25 Urine Appearance Clear (Clear) 04/25/25 Urine pH 6.5 (4.5-7.5) 04/25/25 Urine Specific [place] 1.020 (1.000-1.030) 04/25/25 Urine Protein Trace (Negative) H 04/25/25 Urine Glucose (UA) Negative (Negative) 04/25/25 Urine Ketones Trace (Negative) H 04/25/25 Urine Blood Negative (Negative) 04/25/25 Urine Nitrite Negative (Negative) 04/25/25 Urine Bilirubin Negative (Negative) 04/25/25 Urine Urobilinogen Negative (Negative) 04/25/25 Urine Leukocyte Esterase 1+ (Negative) H 04/25/25 Urine WBC (Auto) 0-5 /hpf (0-5) 04/25/25 Urine RBC (Auto) 0-2 /hpf (0-2) 04/25/25 Urine Hyaline Casts (Auto) 0-2 /lpf (0-2) 04/25/25 Urine Epithelial Cells (Auto) 0-2 /hpf (0-2) 04/25/25 Urine Bacteria (Auto) None Seen (None Seen) 04/25/25 Blood Type O Positive 04/25/25 Antibody Screen NEGATIVE 04/25/25 Testing Electrocardiogram Date: 11/18/24 NSR with sinus arrhythmia, rate 74 bpm LBBB Stress Test Date: 07/27/24 1. Negative myocardial perfusion study for ischemia. 2. Anteroseptal/septal fixed defect may be due to artifact given normal wall motion. Cannot exclude small infarct. 3. No regional wall motion abnormalities. EF 80%. 4. Lexiscan induced chest pain, shortness of breath, and nausea. 5. Nondiagnostic Lexiscan ECG. Other Testing Head and neck CTA 07/10/24 No acute intracranial abnormalities are identified by CT. Atherosclerosis without significant stenosis or large vessel occlusion. No samuel dence of cervical artery dissection.
[2025-07-08] MEDS: LR 60ML/HR IV SCH (06:33)
[2025-07-08] MEDS: LR 15ML/HR IV SCH (06:33)
[2025-07-08] MEDS: VANCOMYCIN HCL 1,000 MG/270 ML BAG IV SCH (06:33)
[2025-07-08] MEDS: CeleBREX 200 MG CAP PO SCH (06:49)
[2025-07-08] MEDS: ACETAMINOPHEN 500 MG TAB PO SCH (06:49)
[2025-07-08] MEDS: GABAPENTIN 300 MG CAP PO SCH (06:50)
[2025-07-08] MEDS ORDERED: SUGAMMADEX SODIUM 200 MG/2 ML VIAL IV ONE (06:59)
[2025-07-08] MEDS ORDERED: PROPOFOL IV EMULSION 10 MG/ML 100 ML VIAL IV ONE (06:59)
[2025-07-08] MEDS ORDERED: ROCURONIUM BROMIDE 10 MG/ML 5 ML VIAL IV ONE (06:59)
[2025-07-08] MEDS ORDERED: ONDANSETRON INJ 2 MG/ML 2 ML VIAL ONE (06:59)
[2025-07-08] MEDS ORDERED: PROPOFOL IV EMULSION 10 MG/ML 20 ML VIAL IV ONE (06:59)
[2025-07-08] MEDS ORDERED: SUCCINYLCHOLINE CHLORIDE 20 MG/ML 10 ML VIAL IV ONE (06:59)
[2025-07-08] MEDS ORDERED: DEXAMETHASONE SOD INJ 4 MG/ML VIAL ONE (06:59)
[2025-07-08] MEDS ORDERED: LIDOCAINE 2% 2 ML VIAL/AMP(20MG/ML) INFIL ONE (07:10)
[2025-07-08] MEDS ORDERED: ONDANSETRON INJ 2 MG/ML 2 ML VIAL IV PRN ×2 (07:12→17:53)
[2025-07-08] MEDS ORDERED: ATROPINE SULFATE 0.1 MG/ML 10ML SYR IV PRN (07:12)
[2025-07-08] MEDS: ALBUT/IPRATROP 3MG/0.5MG NEB 3 ML VIAL NEB STA ×2 (07:20→10:33)
--- NOTE | 2025-07-08 07:38 | History & Physical Bridge Note ---
Date of Service July 08, 2025 History & Physical Bridge Note I have examined the patient, reviewed the History & Physical and in the interval since the performance of the History & Physical I have noted the following changes of clinical significance: no changes noted
--- NOTE | 2025-07-08 07:39 | History & Physical Report ---
Date of Service July 08, 2025 Assessment & Plan (1) Lumbar compression fracture: Plan: Lumbar kyphoplasty L1 History of Present Illness Chief Complaint: Back pain Primary Care Provider: Cirilo Macias MD This is an 80-year-old female who presents with unremitting back pain status post L1 compression fracture and is here for surgical intervention. Allergies Allergy/AdvReac Type Severity Reaction Status Date / Time gabapentin Allergy Intermediate Diarrhea Verified 07/08/25 06:06 Sulfa (Sulfonamide Allergy Intermediate rash Verified 07/08/25 06:06 Antibiotics) Penicillins Allergy Unknown Rash Verified 07/08/25 06:06 ranitidine [From Zantac] Allergy Unknown Unknown Verified 07/08/25 06:06 DEMIAN Inhibitors AdvReac Intermediate hallucinati Verified 07/08/25 06:06 ons adhesive AdvReac Mild contact Verified 07/08/25 06:06 dermatitis valsartan [From Diovan] AdvReac Mild Possible Verified 07/08/25 06:06 cough verapamil [From Covera-HS] AdvReac Mild Cough Verified 07/08/25 06:06 Home Medications Medication Instructions Recorded Confirmed Type cyanocobalamin (vitamin B-12) 500 500 mcg PO QAM 05/19/20 07/08/25 History mcg tablet acetaminophen 500 mg tablet 1,000 mg PO QID PRN Pain 09/26/20 07/08/25 History (Tylenol Extra Strength) nebulizers #1 ea 04/09/21 06/14/25 Rx hydrocortisone 2.5 % topical cream 1 applic topical TID PRN skin 11/13/21 07/01/25 Rx irritation #30 grams fluticasone propionate 50 2 spray intranasal DAILY #16 grams 02/07/24 07/08/25 Rx mcg/actuation nasal spray,suspension (Allergy Relief (fluticasone)) transport chair #1 ea 06/05/24 06/14/25 Rx potassium chloride 10 mEq 30 meq (3 x 10 mEq) PO BID #540 06/18/24 07/08/25 Rx tablet,extended release (Klor-Con) tabs amlodipine 10 mg tablet (Norvasc) 10 mg PO QPM #90 tabs 09/14/24 07/08/25 Rx trazodone 50 mg tablet See Rx Instructions PO HS PRN 09/24/24 07/08/25 Rx Insomnia #180 tabs fluoxetine 20 mg capsule 40 mg (2 x 20 mg) PO QAM #180 caps 11/23/24 07/08/25 Rx Wheeled Walker #1 ea 12/21/24 06/14/25 Rx brimonidine 0.1 % eye drops 1 drp ophthalmic (eye) QAM 12/21/24 07/08/25 History latanoprost 0.005 % eye drops 1 drp ophthalmic (eye) HS 12/21/24 07/08/25 History umeclidinium 62.5 mcg-vilanterol 1 inh inhalation DAILY #180 ea 04/08/25 07/01/25 Rx 25 mcg/actuation powdr for inhalation (Anoro Ellipta) lorazepam 1 mg tablet 1 mg PO DAILY PRN Insomnia #90 tabs 04/11/25 07/08/25 Rx losartan 100 1 tab PO QAM #90 tabs 05/08/25 07/08/25 Rx mg-hydrochlorothiazide 25 mg tablet albuterol sulfate 90 mcg/actuation 2 puff inhalation Q4H PRN 05/30/25 07/08/25 Rx aerosol inhaler shortness of breath #18 grams omeprazole 20 mg capsule,delayed 20 mg PO DAILY #30 caps 06/14/25 07/08/25 Rx release prednisone 1 mg tablet 1 mg PO DAILY 06/14/25 07/08/25 History tramadol 50 mg tablet 50 mg PO TID PRN pain #90 tabs 06/14/25 07/08/25 Rx Past Med/Surg History Problem List Synovial cyst of popliteal space [Deshpande], right knee Right leg swelling Right calf pain Lumbar compression fracture Right lumbar radiculopathy Arthralgia Neurologic gait dysfunction Vitamin B 12 deficiency Fatigue Right foot drop Right low back pain Peripheral neuropathy Gout Chronic steroid use Osteoporosis Left ankle pain Greater trochanteric bursitis of left hip Vitamin D deficiency COPD with asthma Dyspnea Myalgia Multiple pulmonary nodules Mixed incontinence Anemia Glaucoma Hypertension Hiatal hernia with gastroesophageal reflux Thoracic radiculopathy Dyslipidemia Iron deficiency anemia under surveillance s/p iron infusion (04/2020) 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 Gentile) and general surgery (Dr. Yates/referred to pain clinic-[facility] Cystic fibrosis gene carrier Cervicalgia Chronic GERD Chronic low back pain Fibromyalgia Generalized osteoarthritis of multiple sites Hypercholesterolemia Bronchiectasis Mycobacterial infection The growth from the bronchial washings of mycobacterium abscessus/a rapid growing mycobacterial organism is a real concern. It is almost never a commensal or colonizing organism and requires treatment. Unfortunately requires intravenous antibiotics as part of her regimen and sometimes for greater than a year and becomes at some point a surgical entity if a localized area of bronchiectasis can be identified. For now I would not treated and reconvene when patient is discharged to discuss the matter. Essential hypertension Depression Anxiety Medical History Hx of mycobacterial infection 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 Gentile) and general surgery (Dr. Yates/referred to pain clinic-[facility] Osteoarthritis Dyslipidemia History of anemia Current chronic use of systemic steroids Hx of gout Peripheral neuropathy Right foot drop Arthralgia Neurologic gait dysfunction Lumbar compression fracture Deshpande's cyst right knee, causing pain and swelling right calf, to follow w/ Dr Ferraro end of June, reports blood clot has been ruled out LBBB (left bundle branch block) ongoing since at least 2018 Sjogren syndrome History of blood transfusion (~2022) after fall and left hip fracture Insomnia Frequent falls most recently leading to current lumbar issue-last fall 01/2025 per patient and COPD (chronic obstructive pulmonary disease) pt currently taking prednisone 5mg daily as maintenance; follows with [facility] Osteoporosis scheduled for Reclast infusion 04/2025 Right femoral fracture (~01/10/24) from a fall-had surgery on 01/10/24 Pelvic fracture (12/22/22) hx Closed left hip fracture no surgery; pt states went to rehab facility and completed PT/OT; healed now Multiple pulmonary nodules following with [facility] SOB (shortness of breath) on exertion Chronic Bronchiectasis follows with [facility] Cardiac murmur A CHILD Hx of rheumatic fever History of pneumothorax Post-op lung biopsy, chest tube inserted (approx 2015) Fibromyalgia GERD (gastroesophageal reflux disease) Well controlled and stable History of basal cell carcinoma s/p removed from nose- Mohs procedure Glaucoma Follows routinely with eye doctor Depression Anxiety Diarrhea chronic s/p nacho Hiatal hernia large Cervical spinal stenosis Pain improved with injections Hypertension controlled, stable per pt Asthma stable; rare rescue inhaler use; pt states recently prescribed Anoro inhaler but 'never uses'; sees [facility] Surgical History Hx of chest tube placement (2008) History of esophagogastroduodenoscopy (EGD) H/O cardiac catheterization ; no stents History of hemorrhoidectomy S/P right knee arthroscopy H/O shoulder surgery right RTC History of shoulder replacement R History of surgery on lower extremity right femur fracture History of D&C History of colonoscopy History of cholecystectomy Family History Mother Hypertension Father Hypertension Other Family history non-contributory No family history of adverse response to anesthesia Social History Smoking Status: Former smoker Tobacco Type: Cigarettes Age Started Using Tobacco: 15; Age Quit Using Tobacco: 48; packs per day: 1; Smoking End Date: ; Second Hand Exposure: No; Do You Dip or Chew Tobacco: No; Tobacco Cessation Education Requested by Patient: No Hx Alcohol Use: Yes Alcohol type: wine Hx Substance Use: No Preferred Language: Divehi Communication Ability: Effective Sap Functional Analyst Required: No Beliefs That Will Affect Care: None marital status: Current Living Situation: Spouse 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
[2025-07-08] MEDS ORDERED: HYDROmorphone INJ 0.5 MG/0.5 ML SYR IV PRN ×2 (08:35→17:53)
--- NOTE | 2025-07-08 08:35 | Operative Report ---
Post Operative Report Pre & Post Diagnosis Operation Date: 07/08/25 07:45 Pre-Op Diagnosis: Compression Fracture of L1 Vertebra Post-Op Diagnosis: Compression Fracture of L1 Vertebra I identified the patient and participated in the time-out.: Yes Procedure Operation Date: 07/08/25 07:45 Actual Procedures #1 L1 compression fracture. #2 biopsy of L1 vertebral body Surgeon Dangelo Duarte, DO Dining Room Tables Set Up Attendant None Estimated Blood Loss 5 Findings Consistent with Post-Op Diagnosis Specimens Biopsy of L1 vertebral body Indications This is an 6-year-old female who presents with the above-mentioned diagnosis. Patient's had continued back pain and marked limitations with quality of life and function is here for surgical invention. Description of Procedure Patient was met with identified informed consent obtained. Patient was then taken to the operative suite underwent intubation placed in a prone position on the Manuel table with a chest padded bolsters. All bony prominences well- padded eyes inspected to ensure no external precipice spinal. This point the thoracolumbar spine was prepped and draped in a sterile fashion. The assistance of fluoroscopy identified the L1 vertebral body in AP and lateral planes. 2 small incisions were placed just lateral to the L1 pedicles. 2 Kyphon working cannulas were then placed by way of a transpedicular approach into the vertebral body. 2 core biopsies were then obtained. I then placed 220 mm balloons within the L1 vertebral body and sequentially inflated with fluoroscopic visualization. They were subsequently removed in approximately 3 cc of Kyphon cement injected under fluoroscopic visualization demonstrating excellent interdigitation and fill of the vertebral body. The working cannulas were subsequently removed. The incisions closed with subcutaneous Monocryl. Sterile dressing placed. Patient waken taken to PACU in stable condition. I attest to the content of the Intraoperative Record and any orders documented therein. Any exceptions are noted below.
[2025-07-08] MEDS: BUPIVACAINE/EPINEPHRINE 0.25% 1:200,000 30 ML VIAL ONE (08:37)
--- NOTE | 2025-07-08 09:13 | Fluoroscopy Report ---
FL kyphoplasty any level CLINICAL HISTORY: KYPHOPLASTY Fluoroscopy time: 99 seconds. COMPARISON STUDY: None FINDINGS: Fluoroscopy was provided for kyphoplasty. IMPRESSION: Fluoroscopy for kyphoplasty. ACT 112: Negative or not required by law. Electronically signed by: Marques Portillo M.D. 07/08/2025 9:11 AM
--- NOTE | 2025-07-08 09:40 | Anesthesiology Progress Note ---
Date of Service July 08, 2025 Anesthesia Post Procedure Vital Signs Vital Signs: Temp Pulse Pulse Resp BP Pulse Ox O2 Del Method 07/08/25 09:30 95 H 14 135/57 L 92 Room Air 07/08/25 09:20 94 H 14 142/55 H 93 Nasal Cannula 07/08/25 09:10 90 14 139/53 L 92 Nasal Cannula 07/08/25 09:00 93 H 16 147/55 H 100 Nasal Cannula 07/08/25 08:42 36.3 C L 92 H 16 144/72 H 95 Nasal Cannula 07/08/25 07:21 66 18 94 Room Air 07/08/25 06:19 37 C 78 16 126/77 94 Room Air O2 Flow Rate 07/08/25 09:30 07/08/25 09:20 1 07/08/25 09:10 1 07/08/25 09:00 2 07/08/25 08:42 4 07/08/25 07:21 07/08/25 06:19 Pain Intensity Bilateral Lower Back: Pain Intensity: 8 Back: Pain Intensity: 5 Transfer of Care Handoff Completed per policy Notes Mental Status: alert / awake / arousable Patient Amnestic to Procedure: Yes Nausea / Vomiting: adequately controlled Pain: adequately controlled Airway Patency, RR, SpO2: stable & adequate BP & HR: stable & adequate Hydration State: stable & adequate Anesthetic Complications: no major complications apparent and Pt Satisfied with anesthetic care
[2025-07-08] MEDS ORDERED: ONDANSETRON 4 MG OD TAB PO PRN (17:53)
[2025-07-08] MEDS ORDERED: NALOXONE HCL 0.4 MG/1 ML VIAL/CARP IV PRN (17:53)
[2025-07-08] MEDS ORDERED: ACETAMINOPHEN 1,000 MG/100 ML VIAL IV PRN (17:53)
[2025-07-08] MEDS ORDERED: ALBUTEROL HFA 8 GM INHALER INH PRN (17:53)
[2025-07-08] MEDS ORDERED: METOCLOPRAMIDE HCL INJ 5 MG/ML 2 ML VIAL IV PRN (17:53)
[2025-07-08] MEDS ORDERED: ACETAMINOPHEN 500 MG TAB PO PRN (17:53)
[2025-07-08] MEDS ORDERED: PROMETHAZINE 12.5 MG/50.5 ML BAG IV PRN (17:53)
[2025-07-08] MEDS: ALBUT/IPRATROP 3MG/0.5MG NEB 3 ML VIAL ONE (17:58)
--- NOTE | 2025-07-08 18:23 | Hospitalist Consultation ---
Date of Consultation July 08, 2025 Assessment & Plan (1) COPD with asthma: (2) Iron deficiency anemia: (3) Lumbar compression fracture: Plan This is an 80 year old female with past medical history of COPD, asthma, Hypertension, osteoporosis and iron deficiency anemia who presented to the hospital on 07/08 for an elective kyphoplasty with Dr. Duarte. . #COPD/Asthma Following operation, patient became hypoxic in PACU requiring oxygen. At time of encounter, she was feeling better, O2 sat 93-96% on 2L Obtain CXR given recent pneumonia. Discussed home inhalers - ideally should be on daily inhaler but will defer to outpatient chain carrier given issues w/ thrush. Duoneb x 2 in PACU --> continue on q6h prn basis Monitor O2 sats --> wean when able to room air with a goal of 90% & above. Aggressive incentive spirometry #Iron Deficiency anemia Hgb 07/08 stable at 9.5 Resume outpatient iron supplements when able following surgery Recheck in AM + Iron panel #L1 Compression fracture s/p Kyphoplasty w/ Dr. Duarte 07/08. DVT prophylaxis, PT/OT management, Diet, & pain management per primary team. #Mental health - Prozac #GERD - PPI #HTN - HCTZ/Losartan & amlodipine- BP normotensive DVT prophylaxis: per primary team Code: full Supervising Physician Co-Signing Physician Notes I personally examined the patient and verified all zamorano points of history and exam, discussed case, and agree with decision making with Stephany Wisdom PA-C SWAIN for the last month but nothing different today vitals noted nad heent nc at mmm lungs cta b/l no r/r/w good effort skin no rashes no pallor or icterus acute O2 requirement - resolved w incentive spirometry - almost certainly atelectasis subacute SWAIN - start w CXR and follow up results / follow sx otherwise as above History of Present Illness Attending Physician: Dangelo Duarte, History of Present Illness This is an 80 year old female with past medical history of COPD, asthma, Hypertension, osteoporosis and iron deficiency anemia who presented to the hospital on 07/08 for an elective kyphoplasty with Dr. Duarte. Joselyn was seen and examined this evening. She reports her surgery went well today. States she has some post op soreness but not necessarily pain. She was eating dinner at time of my encounter & tolerating it well. she states she has urinated several times since surgery & is passing gas. She states after surgery she did begin to feel short of breath. She states that it is better at rest but she does notice it with moving. She states that the SOB on exertion was happening outpatient as well. She does follow up a chain carrier outpatient for her COPD/Asthma. She states these conditions have been relatively stable recently. She states she does not take a daily inhaler because she will experience thrush but she does use albuterol prn. Allergies Allergy/AdvReac Type Severity Reaction Status Date / Time gabapentin Allergy Intermediate Diarrhea Verified 07/08/25 06:06 Sulfa (Sulfonamide Allergy Intermediate rash Verified 07/08/25 06:06 Antibiotics) Penicillins Allergy Unknown Rash Verified 07/08/25 06:06 ranitidine [From Zantac] Allergy Unknown Unknown Verified 07/08/25 06:06 DEMIAN Inhibitors AdvReac Intermediate hallucinati Verified 07/08/25 06:06 ons adhesive AdvReac Mild contact Verified 07/08/25 06:06 dermatitis valsartan [From Diovan] AdvReac Mild Possible Verified 07/08/25 06:06 cough verapamil [From Covera-HS] AdvReac Mild Cough Verified 07/08/25 06:06 Home Medications Medication Instructions Recorded Confirmed Type cyanocobalamin (vitamin B-12) 500 500 mcg PO QAM 05/19/20 07/08/25 History mcg tablet acetaminophen 500 mg tablet 1,000 mg PO QID PRN Pain 09/26/20 07/08/25 History (Tylenol Extra Strength) nebulizers #1 ea 04/09/21 06/14/25 Rx hydrocortisone 2.5 % topical cream 1 applic topical TID PRN skin 11/13/21 07/01/25 Rx irritation #30 grams fluticasone propionate 50 2 spray intranasal DAILY #16 grams 02/07/24 07/08/25 Rx mcg/actuation nasal spray,suspension (Allergy Relief (fluticasone)) transport chair #1 ea 06/05/24 06/14/25 Rx potassium chloride 10 mEq 30 meq (3 x 10 mEq) PO BID #540 06/18/24 07/08/25 Rx tablet,extended release (Klor-Con) tabs amlodipine 10 mg tablet (Norvasc) 10 mg PO QPM #90 tabs 09/14/24 07/08/25 Rx trazodone 50 mg tablet See Rx Instructions PO HS PRN 09/24/24 07/08/25 Rx Insomnia #180 tabs fluoxetine 20 mg capsule 40 mg (2 x 20 mg) PO QAM #180 caps 11/23/24 07/08/25 Rx Wheeled Walker #1 ea 12/21/24 06/14/25 Rx brimonidine 0.1 % eye drops 1 drp ophthalmic (eye) QAM 12/21/24 07/08/25 History latanoprost 0.005 % eye drops 1 drp ophthalmic (eye) HS 12/21/24 07/08/25 History umeclidinium 62.5 mcg-vilanterol 1 inh inhalation DAILY #180 ea 04/08/25 07/01/25 Rx 25 mcg/actuation powdr for inhalation (Anoro Ellipta) lorazepam 1 mg tablet 1 mg PO DAILY PRN Insomnia #90 tabs 04/11/25 07/08/25 Rx losartan 100 1 tab PO QAM #90 tabs 05/08/25 07/08/25 Rx mg-hydrochlorothiazide 25 mg tablet albuterol sulfate 90 mcg/actuation 2 puff inhalation Q4H PRN 05/30/25 07/08/25 Rx aerosol inhaler shortness of breath #18 grams omeprazole 20 mg capsule,delayed 20 mg PO DAILY #30 caps 06/14/25 07/08/25 Rx release prednisone 1 mg tablet 1 mg PO DAILY 06/14/25 07/08/25 History tramadol 50 mg tablet 50 mg PO TID PRN pain #90 tabs 06/14/25 07/08/25 Rx tramadol 50 mg tablet 50 mg PO Q6H PRN pain, moderate 07/08/25 Rx #20 tabs Patient History Medical History Hx of mycobacterial infection 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 Gentile) and general surgery (Dr. Yates/referred to pain clinic-DX'D CRUSHED VERTEBRAE Osteoarthritis Dyslipidemia History of anemia Current chronic use of systemic steroids Hx of gout Peripheral neuropathy Right foot drop Arthralgia Neurologic gait dysfunction Lumbar compression fracture Deshpande's cyst right knee, causing pain and swelling right calf, to follow w/ Dr Ferraro end of June, reports blood clot has been ruled out LBBB (left bundle branch block) ongoing since at least 2018 Sjogren syndrome History of blood transfusion (~2022) after fall and left hip fracture Insomnia Frequent falls most recently leading to current lumbar issue-last fall 01/2025 per patient and COPD (chronic obstructive pulmonary disease) pt currently taking prednisone 5mg daily as maintenance; follows with [facility] Osteoporosis scheduled for Reclast infusion 04/2025 Right femoral fracture (~01/10/24) from a fall-had surgery on 01/10/24 Pelvic fracture (12/22/22) hx Closed left hip fracture no surgery; pt states went to rehab facility and completed PT/OT; healed now Multiple pulmonary nodules following with [facility] SOB (shortness of breath) on exertion Chronic Bronchiectasis follows with [facility] Cardiac murmur A CHILD Hx of rheumatic fever History of pneumothorax Post-op lung biopsy, chest tube inserted (approx 2015) Fibromyalgia GERD (gastroesophageal reflux disease) Well controlled and stable History of basal cell carcinoma s/p removed from nose- Mohs procedure Glaucoma Follows routinely with eye doctor Depression Anxiety Diarrhea chronic s/p nacho Hiatal hernia large Cervical spinal stenosis Pain improved with injections Hypertension controlled, stable per pt Asthma stable; rare rescue inhaler use; pt states recently prescribed Anoro inhaler but 'never uses'; sees [facility] Surgical History Hx of chest tube placement (2008) History of esophagogastroduodenoscopy (EGD) H/O cardiac catheterization ; no stents History of hemorrhoidectomy S/P right knee arthroscopy H/O shoulder surgery right RTC History of shoulder replacement R History of surgery on lower extremity right femur fracture History of D&C History of colonoscopy History of cholecystectomy Family History Mother Hypertension Father Hypertension Other Family history non-contributory No family history of adverse response to anesthesia Social History Smoking Status: Former smoker Tobacco Type: Cigarettes Age Started Using Tobacco: 15; Age Quit Using Tobacco: 48; packs per day: 1; Smoking End Date: ; Second Hand Exposure: No; Do You Dip or Chew Tobacco: No; Tobacco Cessation Education Requested by Patient: No Hx Alcohol Use: Yes Alcohol type: wine Hx Substance Use: No Preferred Language: Divehi Communication Ability: Effective Digital Recruiter Required: No Beliefs That Will Affect Care: None marital status: Current Living Situation: Spouse 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 Other Information That Helps Us Care for You: No Feels Safe at Home: Yes Safety Concerns: Feels Safe At This Time Diet: regular Seatbelt Use: always Assistive Devices: Cane, Denture - Upper, Denture - Lower, Glasses and Walker Assistive Devices Comment: cane and rollator Physical Exam Constitutional: no acute distress, on 2L of nasal cannula Respiratory: normal respiratory effort, lungs clear to auscultation Cardiovascular: RRR, no murmur, no edema Neurologic: PERRL, EOMI, accommodation nl, no face palsy, no dysarthria Psychiatric: A+Ox3, euthymic affect Results & Data Results & Data Vital Signs (Past 12 Hours) Vital Signs Temp Pulse Pulse Resp BP Pulse Ox O2 Del Method 07/08/25 18:03 Nasal Cannula 07/08/25 17:45 36.9 C 102 H 16 132/62 93 Nasal Cannula 07/08/25 15:00 109 H 22 157/73 H 96 Nasal Cannula 07/08/25 13:30 37.1 C 103 H 18 125/58 L 94 Nasal Cannula 07/08/25 12:54 99 H 20 133/61 94 Nasal Cannula 07/08/25 12:24 37.4 C 100 H 20 135/55 L 92 Nasal Cannula 07/08/25 11:59 98 H 15 136/56 L 96 Nasal Cannula 07/08/25 11:30 107 H 12 136/56 L 94 Nasal Cannula 07/08/25 11:05 105 H 16 148/58 H 93 Nasal Cannula 07/08/25 10:50 96 H 14 137/55 L 88 L Room Air 07/08/25 10:35 88 16 113/48 L 91 Room Air 07/08/25 10:20 80 17 118/47 L 93 Room Air 07/08/25 10:05 80 14 112/46 L 90 Room Air 07/08/25 10:00 97 H 12 111/60 92 Room Air 07/08/25 09:40 96 H 12 146/57 H 90 Room Air 07/08/25 09:30 95 H 14 135/57 L 92 Room Air 07/08/25 09:20 94 H 14 142/55 H 93 Nasal Cannula 07/08/25 09:10 90 14 139/53 L 92 Nasal Cannula 07/08/25 09:00 93 H 16 147/55 H 100 Nasal Cannula 07/08/25 08:42 36.3 C L 92 H 16 144/72 H 95 Nasal Cannula 07/08/25 07:21 66 18 94 Room Air O2 Flow Rate 07/08/25 18:03 2 07/08/25 17:45 2 07/08/25 15:00 2 07/08/25 13:30 2 07/08/25 12:54 2 07/08/25 12:24 2 07/08/25 11:59 1 07/08/25 11:30 1 07/08/25 11:05 1 07/08/25 10:50 07/08/25 10:35 07/08/25 10:20 07/08/25 10:05 07/08/25 10:00 07/08/25 09:40 07/08/25 09:30 07/08/25 09:20 1 07/08/25 09:10 1 07/08/25 09:00 2 07/08/25 08:42 4 07/08/25 07:21 PG Care Time/CCT Total # of Minutes Spent Total Time Spent with Patient: Total time spent is greater than 50% in coordination of care (as documented) at patient's floor/unit and/or counseling patient: Coding Level of Care Code 39215 IN/OBS CONSULT LVL 3,45M Diagnoses COPD with asthma J44.9 Iron deficiency anemia D50.9 Lumbar compression fracture S32.000A
[2025-07-08] MEDS: HYDROCODONE/ACETAMOPHEN 5/325MG TAB PO PRN (18:38)
[2025-07-08] MEDS: LACTATED RINGER'S 1,000 ML IV SCH (19:37)
[2025-07-08] MEDS: LORazepam 1 MG TAB PO PRN (21:08)
[2025-07-08] MEDS: LATANOPROST 0.005% OP SOLN 2.5 ML BTL OP SCH (21:08)
[2025-07-08] MEDS: POTASSIUM CHLORIDE 10 MEQ TABCR PO SCH (21:08)
--- NOTE | 2025-07-08 22:11 | XRay Report ---
Exam(s): XR CXR 2 VIEWS EXAM: XR Chest, 2 Views CLINICAL HISTORY: Reason for exam: SWAIN. TECHNIQUE: Frontal and lateral views of the chest. COMPARISON: 06/27/2021 FINDINGS: Lungs: Basilar opacities, atelectasis versus infiltrates. Pulmonary vascular prominence. No overt edema. Pleural space: No pleural effusion. No pneumothorax. Heart: Cardiomegaly. Mediastinum: Hiatal hernia. Bones/joints: Postsurgical changes in the right shoulder and lower thoracic vertebral bodies. IMPRESSION: 1. Basilar opacities, atelectasis versus infiltrates. 2. Hiatal hernia. 3. Cardiomegaly. Electronically signed by: Ozzy Chavez MD 07/08/25 22:10 PM
--- NOTE | 2025-07-09 08:14 | Discharge Summary ---
Date of Service July 09, 2025 Admission HPI Per Admitting Provider This is an 80-year-old female who presents with unremitting back pain status post L1 compression fracture and is here for surgical intervention. Principal Diagnosis Delayed union lumbar compression fracture Discharge Data Allergies Allergy/AdvReac Type Severity Reaction Status Date / Time gabapentin Allergy Intermediate Diarrhea Verified 07/08/25 06:06 Sulfa (Sulfonamide Allergy Intermediate rash Verified 07/08/25 06:06 Antibiotics) Penicillins Allergy Unknown Rash Verified 07/08/25 06:06 ranitidine [From Zantac] Allergy Unknown Unknown Verified 07/08/25 06:06 DEMIAN Inhibitors AdvReac Intermediate hallucinati Verified 07/08/25 06:06 ons adhesive AdvReac Mild contact Verified 07/08/25 06:06 dermatitis valsartan [From Diovan] AdvReac Mild Possible Verified 07/08/25 06:06 cough verapamil [From Covera-HS] AdvReac Mild Cough Verified 07/08/25 06:06 Consultations 07/08/25 17:53 Consult Internal Medicine Routine Procedures Performed Operation Date: 07/08/25 07:45 Actual Procedures p L1 Kyphoplasty(Not Applicable) - Dangelo Duarte DO Ordered Studies 07/08/25 FL kyphoplasty any level Routine Hospital Course (1) Lumbar compression fracture: Patient had delayed union of lumbar compression fracture underwent kyphoplasty tolerated procedure well. Postoperatively she struggled with O2 sats. Was placed in the hospital overnight. This morning she is much more comfortable. She has been up and ambulating. Was subsidy discharged home and follow-up as scheduled. Total Time Total Time Spent Total Time Spent (In Minutes): 20 minutes Discharge Plan Discharge Items Patient Disposition: Home - Self-Care Reason For Visit: Compression Fracture of L1 Vertebra with Delayed H Discharge Diagnosis: L1 compression fracture Activity: As commented below Lifting: No more than 5 pounds Non-emergency contact: Primary Care Provider Call non-emergency contact if: you have any medication questions Follow-up/Referrals: Cirilo Macias MD [Primary Care Provider] - Diet: Regular Addtl Attending Provider Instructions: Please lift no more than 5 pounds. May shower postop day #1. Follow-up as scheduled in 2 weeks. Pending Studies at Discharge: Yes Stand-Alone Forms: Anesthesia/Sedation, Adult, [facility] Medications and DC Order Prescriptions: New tramadol 50 mg tablet 50 mg PO Q6H PRN (Reason: pain, moderate) Qty: 20 0RF Continued hydrocortisone 2.5 % cream 1 applic topical TID PRN (Reason: skin irritation) Qty: 30 5RF fluticasone propionate [Allergy Relief (fluticasone)] 50 mcg/actuation spray,suspension 2 spray intranasal DAILY Qty: 16 11RF Rx Instructions: administer into each nostril potassium chloride [Klor-Con 10] 10 mEq tablet extended release 30 meq PO BID Qty: 540 3RF amlodipine [Norvasc] 10 mg tablet 10 mg PO QPM Qty: 90 3RF trazodone 50 mg tablet See Rx Instructions PO HS PRN (Reason: Insomnia) Qty: 180 3RF Rx Instructions: 1-2 tabs orally at bedtime PRN; lorazepam 1 mg tablet 1 mg PO DAILY PRN (Reason: Insomnia) Qty: 90 2RF losartan-hydrochlorothiazide 100-25 mg tablet 1 tab PO QAM Qty: 90 3RF albuterol sulfate 90 mcg/actuation HFA aerosol inhaler 2 puff INH Q4H PRN (Reason: shortness of breath) Qty: 18 5RF (DME) nebulizers [facility] [place] See Rx Instructions .ROUTE .MEDSUPPLY Qty: 1 0RF Rx Instructions: Q 4HR WITH TUBING & SUPPLIES - fluoxetine 20 mg capsule 40 mg PO QAM Qty: 180 3RF Rx Instructions: take with breakfast brimonidine 0.1 % drops 1 drp ophthalmic (eye) QAM latanoprost 0.005 % drops 1 drp ophthalmic (eye) HS (DME) Wheeled Walker [facility] [place] See Rx Instructions .Route Qty: 1 0RF Rx Instructions: Rollator type roller walker, high umeclidinium-vilanterol [Anoro Ellipta] 62.5-25 mcg/actuation blister with device 1 inh inhalation DAILY Qty: 180 3RF Patient Comments: uses prn prednisone 1 mg tablet 1 mg PO DAILY Patient Comments: taking for pain omeprazole 20 mg capsule,delayed release(DR/EC) 20 mg PO DAILY Qty: 30 3RF tramadol 50 mg tablet 50 mg PO TID PRN (Reason: pain) Qty: 90 2RF (DME) transport chair See Rx Instructions .Route .MEDSUPPLY Qty: 1 0RF Rx Instructions: As directed cyanocobalamin (vitamin B-12) 500 mcg Tablet 500 mcg PO QAM acetaminophen [Tylenol Extra Strength] 500 mg tablet 1,000 mg PO QID PRN (Reason: Pain) Discharge Orders: Discharge Order (Routine); Ordered 07/09/25 Ordered By: Dangelo Tanner/Other Patient Handouts: DVT Post Op Prevention Admission Data Admit Date/Time: 07/08/25 14:16 Attending Provider: Dangelo Duarte Admit Provider: Dangelo Duarte Primary Care Provider: Cirilo Macias Other Providers: [facility],Home Health; Dany Alvarado
[2025-07-09 08:36] LABS: Hematocrit (blood only) 25.0 % (37.0-47.0); Hemoglobin 7.6 g/dl (12.0-16.0); Mean Corpuscular Hemoglobin 26.4 pg (25.0-34.0); Mean Corpuscular Volume 86.8 fL (80.0-100.0); Platelet Count 266 K/uL (130-400); RDW Standard Deviation 46.3 fL (36.4-46.3); Red Blood Count 2.88 M/uL (4.20-5.40); White Blood Count 8.69 K/ul (4.8-10.8)
[2025-07-09] MEDS: CYANOCOBALAMIN (B-12) 500 MCG TABLET PO SCH (08:54)
[2025-07-09] MEDS: LOSARTAN/HCTZ 50/12.5MG TAB PO SCH (08:54)
[2025-07-09 08:57] LABS: Alanine Aminotransferase 7.0 U/L (7-52); Albumin Globulin Ratio 1.7 (0.9-2); Alkaline Phosphatase 31.0 U/L (34-104); Anion Gap 3.0 (3-11); Bilirubin,Total 0.3 mg/dl (0.2-1.0); Blood Urea Nitrogen 14.0 mg/dl (6-23); Calcium 8.6 mg/dl (8.6-10.3); Carbon Dioxide 30.0 mmol/L (21-32); Chloride 107.0 mmol/L (98-107); Creatinine Clr Calc Pharmacy 40.1 ml/min; Globulin 2.0 gm/dl (2.5-4.0); Glucose 91.0 mg/dl (70-99(Fasting)); Iron 45.0 mcg/dl (35-150); Potassium 4.4 mmol/L (3.5-5.1); Sodium 140.0 mmol/L (136-145); Total Iron Binding Cap Calc 421.0 mcg/dl (250-450); Total Protein 5.4 gm/dl (6.0-8.3); Transferrin 301.0 mg/dl (200-360); Transferrin (FE) Percent Satur 11.0 % (15-50)
[2025-07-09] MEDS: FLUTICASONE PROPIONATE NA SPR 16 GM BTL SCH (08:59)
[2025-07-09] MEDS: UMECLIDINIUM/VILANTEROL 62.5/25MCG 7 PUFFS/INHALER INH SCH (08:59)
[2025-07-09] MEDS: SODIUM CHLOR 7% 4 ML NEB NEB SCH (09:58)
[2025-07-09] MEDS: ALBUT/IPRATROP 3MG/0.5MG NEB 3 ML VIAL NEB PRN (09:58)
[2025-07-09] MEDS: ACETYLCYSTEINE 20% INHAL SOLN 4ML ***DISPENSED BY RESP. INH SCH (09:59)
--- NOTE | 2025-07-09 10:02 | Hospitalist Progress Note ---
Date of Service July 09, 2025 Assessment & Plan (1) COPD with asthma: (2) Iron deficiency anemia: (3) Lumbar compression fracture: Plan This is an 80 year old female with past medical history of COPD, asthma, Hypertension, osteoporosis and iron deficiency anemia who presented to the hospital on 07/08 for an elective kyphoplasty with Dr. Duarte. . #COPD/Asthma she still has hypoxia in 2-3 liter prednisone. hypertonic saline, mucomyst. she should has pulmonary doctor. and begin maintaince inhaler. Duoneb x 2 in PACU --> continue on q6h prn basis #Iron Deficiency anemia Hgb 07/08 stable at 9.5 Resume outpatient iron supplements when able following surgery Recheck in AM + Iron panel #L1 Compression fracture s/p Kyphoplasty w/ Dr. Duarte 07/08. defer to neurosurgery about range of motion restriction. and activity restriction. pain control per neurosurgery DVT prophylaxis, PT/OT management, Diet #Mental health - Prozac #GERD - PPI #HTN - HCTZ/Losartan & amlodipine- BP normotensive DVT prophylaxis: per primary team Code: full Admission and Anticipated Discharge Date Admission Date: July 08, 2025 Subjective she still has significant congestion and wheezing and hypoxic plan for Solumol, Mucinex, hypertonic saline and Mucomyst. she's is on room air at baseline Physical Exam Physical Exam: VITALS: Reviewed. WEIGHT/BMI reviewed. GEN: Healthy appearing, well-developed, NAD. -Head: NC/AT; -Mouth and throat: MMM. Normal gums, muc fatuma, palate,. Good dentition. NECK: Supple, with no masses. CV: RRR, no m/r/g. LUNGS: congested breath sound; + for wheezing; + for hypoxic ABD: Soft, NT/ND, NBS, no masses or organomegaly. SKIN: Warm, well perfused. No skin rashes or abnormal lesions. MSK: No deformities, Normal gait. EXT: No clubbing NEURO: AAox3. Results & Data Results & Data Vital Signs (Past 12 Hours) Vital Signs Temp Pulse Resp BP Pulse Ox O2 Del Method O2 Flow Rate 07/09/25 08:52 84 115/57 L 07/09/25 07:17 36.8 C 72 16 119/51 L 96 Room Air 07/09/25 04:45 36.8 C 80 18 119/66 97 Room Air 07/08/25 23:58 36.5 C 65 18 112/64 95 Nasal Cannula 2 Laboratory Results Laboratory Results - last 72 hr 07/09/25 07/09/25 07:46 08:03 WBC 8.69 RBC 2.88 L Hgb 7.6 L Hct 25.0 L MCV 86.8 MCH 26.4 MCHC 30.4 L RDW Std Deviation 46.3 RDW Coeff of Katya 14.6 H Plt Count 266 MPV 8.8 L Sodium 140 Potassium 4.4 Chloride 107 Carbon Dioxide 30 Anion Gap 3 BUN 14 Creatinine 0.94 Est Cr Clr Drug Dosing 40.1 eGFR 60.58 BUN/Creatinine Ratio 14.9 Glucose 91 Calcium 8.6 Iron 45 TIBC 421 Transferrin 301 Transferrin % Sat 11 L Total Bilirubin 0.3 AST 12 L ALT 7 Alkaline Phosphatase 31 L Total Protein 5.4 L Albumin 3.4 Globulin 2.0 L Albumin/Globulin Ratio 1.7 Diagnostic Findings Kyphoplasty 07/08/25 00:00 FL kyphoplasty any level CLINICAL HISTORY: KYPHOPLASTY Fluoroscopy time: 99 seconds. COMPARISON STUDY: None FINDINGS: Fluoroscopy was provided for kyphoplasty. IMPRESSION: Fluoroscopy for kyphoplasty. ACT 112: Negative or not required by law. Electronically signed by: Marques Portillo M.D. 07/08/2025 9:11 AM Chest X-Ray 07/08/25 19:16 Exam(s): XR CXR 2 VIEWS EXAM: XR Chest, 2 Views CLINICAL HISTORY: Reason for exam: SWAIN. TECHNIQUE: Frontal and lateral views of the chest. COMPARISON: 06/27/2021 FINDINGS: Lungs: Basilar opacities, atelectasis versus infiltrates. Pulmonary vascular prominence. No overt edema. Pleural space: No pleural effusion. No pneumothorax. Heart: Cardiomegaly. Mediastinum: Hiatal hernia. Bones/joints: Postsurgical changes in the right shoulder and lower thoracic vertebral bodies. IMPRESSION: 1. Basilar opacities, atelectasis versus infiltrates. 2. Hiatal hernia. 3. Cardiomegaly. Electronically signed by: Ozzy Chavez MD 07/08/25 22:10 PM Medications Administered Current Inpatient Medications Acetaminophen (Acetaminophen 500 Mg Tab) 1,000 mg PO Q8H PRN PRN Reason: MILD Pain Scale 1,2,3 & Pre PT Stop: 08/07/25 17:52 Hydrocodone Bitart/Acetaminophen (Hydrocodone/Acetamophen 5/325mg Tab) 1 tab PO Q4H PRN PRN Reason: MODERATE Pain (4,5,6) & Pre PT Stop: 07/22/25 08:34 Last Admin: 07/08/25 18:38 Dose: 1 tab Acetylcysteine (Acetylcysteine 20% Inhal Soln 4ml Dispensed By Resp.) 5 ml INH Q12R SANAM Stop: 08/08/25 09:29 Last Admin: 07/09/25 09:59 Dose: 5 ml Albuterol (Albuterol Hfa 8 Gm Inhaler) 2 puffs INH Q4H PRN PRN Reason: shortness of breath Stop: 08/07/25 17:52 Albuterol (Albut/Ipratrop 3mg/0.5mg Neb 3 Ml Vial) 3 ml NEB Q6R PRN; Protocol PRN Reason: Shortness Of Breath Or Wheezing Stop: 08/07/25 18:38 Last Admin: 07/09/25 09:58 Dose: 3 ml Amlodipine Besylate (Amlodipine Besylate 5 Mg Tab) 10 mg PO QPM SANAM Stop: 08/07/25 20:59 Last Admin: 07/08/25 21:07 Dose: 10 mg Cyanocobalamin (Cyanocobalamin (B-12) 500 Mcg Tablet) 500 mcg PO QAM SANAM Stop: 08/08/25 08:59 Last Admin: 07/09/25 08:54 Dose: 500 mcg Fluoxetine HCl (Fluoxetine Hcl 20 Mg Cap) 40 mg PO QAM SANAM Stop: 08/08/25 08:59 Last Admin: 07/09/25 09:19 Dose: 40 mg Fluticasone Propionate (Fluticasone Propionate Na Spr 16 Gm Btl) 2 sprays NA DAILY SANAM Stop: 08/08/25 08:59 Last Admin: 07/09/25 08:59 Dose: Not Given Guaifenesin (Guaifenesin 600 Mg Tabcr) 1,200 mg PO Q12 SANAM Stop: 08/08/25 20:59 HCTZ/Losartan Potassium (Losartan/Hctz 50/12.5mg Tab) 1 tab PO QAM SANAM Stop: 08/08/25 08:59 Last Admin: 07/09/25 08:54 Dose: 1 tab Hydromorphone HCl (Hydromorphone Inj 0.5 Mg/0.5 Ml Syr) 0.25 mg IV Q3H PRN PRN Reason: Pain (1,2,3,4,5) & Pre PT Stop: 07/22/25 08:34 Hydromorphone HCl (Hydromorphone Inj 0.5 Mg/0.5 Ml Syr) 0.5 mg IV Q3H PRN PRN Reason: MOD pain (scale 4-6) & Pre PT Stop: 07/22/25 17:52 Acetaminophen (Ofirmev) 1,000 mg in 100 mls @ 400 mls/hr IV Q8H PRN PRN Reason: Pain Rating 1-3 & Pre PT Stop: 07/09/25 17:53 Promethazine HCl (Phenergan) 12.5 mg in 50.5 mls @ 202 mls/hr IV Q6H PRN PRN Reason: Nausea And Vomiting Stop: 08/07/25 17:52 Latanoprost (Latanoprost 0.005% Op Soln 2.5 Ml Btl) 1 drops OP HS SAANM Stop: 08/07/25 20:59 Last Admin: 07/08/25 21:08 Dose: 1 drops Lorazepam (Lorazepam 1 Mg Tab) 1 mg PO DAILY PRN PRN Reason: Insomnia Stop: 08/07/25 17:52 Last Admin: 07/08/25 21:08 Dose: 1 mg Metoclopramide HCl (Metoclopramide Hcl Inj 5 Mg/Ml 2 Ml Vial) 10 mg IV Q6H PRN PRN Reason: Nausea &/or Vomiting Stop: 08/07/25 17:52 Miscellaneous (Brimonidine 0.1 % Drops--Order Awaiting Action) 1 each N/A QS SANAM Stop: 08/08/25 00:00 Last Admin: 07/09/25 08:52 Dose: Not Given Naloxone HCl (Naloxone Hcl 0.4 Mg/1 Ml Vial/Carp) 0.1 mg IV Q5M PRN PRN Reason: Oversedation/respiratory dep Stop: 08/07/25 17:52 Ondansetron HCl (Ondansetron Inj 2 Mg/Ml 2 Ml Vial) 4 mg IV Q6H PRN PRN Reason: Nausea &/or Vomiting Stop: 08/07/25 17:52 Ondansetron HCl (Ondansetron 4 Mg Od Tab) 4 mg PO Q6H PRN PRN Reason: Nausea Stop: 08/07/25 17:52 Pantoprazole Sodium (Pantoprazole 40 Mg Tab) 40 mg PO DAILY SANAM Stop: 08/08/25 08:59 Last Admin: 07/09/25 08:53 Dose: 40 mg Potassium Chloride (Potassium Chloride 10 Meq Tabcr) 30 meq PO BID SANAM Stop: 08/07/25 20:59 Last Admin: 07/09/25 09:23 Dose: Not Given Prednisone (Prednisone 1 Mg Tab) 1 mg PO DAILY SANAM Stop: 08/08/25 08:59 Last Admin: 07/09/25 08:55 Dose: 1 mg Sodium Chloride (Sodium Chlor 7% 4 Ml Neb) 4 ml NEB BIDR SANAM Stop: 08/08/25 09:39 Last Admin: 07/09/25 09:58 Dose: 4 ml Tramadol HCl (Tramadol Hcl 50 Mg Tablet) 50 mg PO Q4H PRN PRN Reason: MODERATE Pain (4,5,6) & Pre PT Stop: 08/07/25 08:34 Tramadol HCl (Tramadol Hcl 50 Mg Tablet) 50 mg PO TID PRN PRN Reason: pain Stop: 08/07/25 17:52 Trazodone HCl (Trazodone Hcl 50 Mg Tab) 50 mg PO HS PRN PRN Reason: Insomnia Stop: 08/07/25 17:52 Umeclidinium/Vilanterol (Umeclidinium/Vilanterol 62.5/25mcg 7 Puffs/Inhaler) 1 puffs INH DAILY SANAM Stop: 08/08/25 08:59 Last Admin: 07/09/25 08:59 Dose: Not Given PG Care Time/CCT Total # of Minutes Spent Total Time Spent with Patient: Total time spent is greater than 50% in coordination of care (as documented) at patient's floor/unit and/or counseling patient: Coding Level of Care Code 25926 SUB INP/OBS CARE 12/22MIN Diagnoses COPD with asthma J44.9 Iron deficiency anemia D50.9 Lumbar compression fracture S32.000A Time Spent (min) 25
[2025-07-09] MEDS: ALUMINUM/MAGNESIUM SUSP 30 ML UDC PO STA (12:54)
[2025-07-09] MEDS: ACETAMINOPHEN 500 MG TAB PO PRN (14:41)
[2025-07-09] MEDS: guaiFENesin 600 MG TABCR PO SCH (21:22)
[2025-07-10] MEDS: MAGNESIUM SULFATE / D5W 1 GM/100 ML BAG IV ONE (01:17)
[2025-07-10] MEDS: BRIMONIDINE TAR OP SCH (07:53)
--- NOTE | 2025-07-10 09:35 | Orthopedic Progress Note ---
Date of Service July 10, 2025 Assessment & Plan (1) Lumbar compression fracture: Plan: At this time we will continue physical therapy. Medicine is managing her heartburn and oxygenation. She will have to be cleared by medicine before returning home. Admission and Anticipated Discharge Date Admission Date: July 08, 2025 Subjective Patient's back pain is controlled. She is struggling with generalized achiness and severe heartburn. Physical Exam Physical Exam: Patient is comfortable in bed. Is constricted testing lower extremities. Results & Data Vital Signs (Past 12 Hours) Vital Signs Temp Pulse Resp BP BP Pulse Ox O2 Del Method 07/10/25 08:03 37.0 C 93 H 16 132/67 99 Nebulizer 07/10/25 07:42 105 H 20 93 Nasal Cannula 07/09/25 23:30 36.8 C 81 16 99/56 L 96 Nasal Cannula O2 Flow Rate 07/10/25 08:03 07/10/25 07:42 2 07/09/25 23:30 2 Queries Orthopedic Spine Vertebral Fracture Secondary to Osteoporosis: Yes
--- NOTE | 2025-07-10 17:35 | Hospitalist Progress Note ---
Date of Service July 10, 2025 Assessment & Plan (1) COPD with asthma: (2) Iron deficiency anemia: (3) Lumbar compression fracture: Plan This is an 80 year old female with past medical history of COPD, asthma, Hypertension, osteoporosis and iron deficiency anemia who presented to the hospital on 07/08 for an elective kyphoplasty with Dr. Duarte. . #COPD/Asthma solumedrol BID for 24-48 hours still not improving. added flutter valve hypertonic saline, mucomyst. she should has pulmonary doctor. and begin maintaince inhaler. Duoneb x 2 in PACU --> continue on q6h prn basis deposition dc home 24-48 hours away need oxygen #Iron Deficiency anemia Hgb 07/08 stable at 9.5 Resume outpatient iron supplements when able following surgery Recheck in AM + Iron panel #L1 Compression fracture s/p Kyphoplasty w/ Dr. Duarte 07/08. defer to neurosurgery about range of motion restriction. and activity restriction. pain control per neurosurgery DVT prophylaxis, PT/OT management, Diet #Mental health - Prozac #GERD - PPI #HTN - HCTZ/Losartan & amlodipine- BP normotensive DVT prophylaxis: per primary team Code: full Admission and Anticipated Discharge Date Admission Date: July 08, 2025 Supervising Physician Co-Signing Physician Notes I personally examined the patient and verified all zamorano points of history and exam, discussed case, and agree with decision making with Stephany Wisdom PA-C SWAIN for the last month but nothing different today vitals noted nad heent nc at mmm lungs cta b/l no r/r/w good effort skin no rashes no pallor or icterus acute O2 requirement - resolved w incentive spirometry - almost certainly atelectasis subacute SWAIN - start w CXR and follow up results / follow sx otherwise as above Subjective she still has significant congestion, shortness of breath and still needing oxygen trial of solumedrol for another 24 hours started on flutter valve likely need short term course of oxygen updated at bedside Physical Exam Physical Exam: VITALS: Reviewed. WEIGHT/BMI reviewed. GEN: Healthy appearing, well-developed, NAD. -Head: NC/AT; CV: RRR, no m/r/g. LUNGS: congested breath sound; + for wheezing; + for hypoxic ABD: Soft, NT/ND, NBS, no masses or organomegaly. SKIN: Warm, well perfused. No skin rashes or abnormal lesions. MSK: No deformities, Normal gait. EXT: No clubbing NEURO: AAox3. Results & Data Results & Data Vital Signs (Past 12 Hours) Vital Signs Temp Pulse Pulse Pulse Pulse Pulse Pulse 07/10/25 14:50 37.1 C 90 07/10/25 10:17 121 H 112 H 116 H 118 H 123 H 07/10/25 08:03 37.0 C 93 H 07/10/25 08:00 07/10/25 07:42 105 H Resp Resp Resp Resp Resp Resp BP 07/10/25 14:50 16 125/71 07/10/25 10:17 22 20 22 20 20 07/10/25 08:03 16 132/67 07/10/25 08:00 07/10/25 07:42 20 Pulse Ox Pulse Ox Pulse Ox Pulse Ox Pulse Ox Pulse Ox O2 Del Method 07/10/25 14:50 93 Room Air 07/10/25 10:17 86 L 91 78 L 90 84 L 07/10/25 08:03 99 Nebulizer 07/10/25 08:00 Nasal Cannula 07/10/25 07:42 93 Nasal Cannula O2 Flow Rate O2 Flow Rate O2 Flow Rate O2 Flow Rate 07/10/25 14:50 07/10/25 10:17 2 3 2 07/10/25 08:03 07/10/25 08:00 2 07/10/25 07:42 2 PG Care Time/CCT Total # of Minutes Spent Total Time Spent with Patient: Total time spent is greater than 50% in coordination of care (as documented) at patient's floor/unit and/or counseling patient: Coding Level of Care Code 80773 SUB INP/OBS CARE 2/35MIN Diagnoses COPD with asthma J44.9 Iron deficiency anemia D50.9 Lumbar compression fracture S32.000A Time Spent (min) 35
[2025-07-11 07:52] VITALS: BP 126/64; PULSE 80; RESP 16; TEMP 98.4; O2SAT 95
--- NOTE | 2025-07-11 09:54 | XRay Report ---
XR chest 1V portable CLINICAL HISTORY: ongoing shortness of breath, r/o underlying PNA COMPARISON STUDY: 07/08/2025 FINDINGS: The heart is enlarged. There is a large retrocardiac opacity consistent with a hiatal herni a. Since the prior study the patient has developed diffuse elevation of interstitium. While likely re presenting interstitial edema, interstitial inflammatory processes could appear similar. There is no lobar consolidation. Right basilar opacities are likely atelectatic. IMPRESSION: 1. Cardiomegaly 2. Large hiatal hernia 3. Interval development of an elevated interstitium. While likely representing interstitial edema, an interstitial inflammatory process could appear similar. ACT 112: Negative or not required by law. Electronically signed by: Alverto Castañeda M.D. 07/11/2025 9:52 AM
--- NOTE | 2025-07-11 10:18 | Orthopedic Progress Note ---
Date of Service July 11, 2025 Assessment & Plan (1) Lumbar compression fracture: Plan: At this time she is can continue with management regarding her COPD. From orthopedic standpoint she is stable to return home when cleared by medicine. Admission and Anticipated Discharge Date Admission Date: July 08, 2025 Subjective Back pain is controlled. She continues to struggle with shortness of breath when she is not on oxygen. Physical Exam Physical Exam: Patient is currently in bed. Does appear comfortable. Distracted testing. Results & Data Vital Signs (Past 12 Hours) Vital Signs Temp Pulse Resp BP Pulse Ox O2 Del Method O2 Flow Rate 07/11/25 07:51 36.9 C 80 16 126/64 95 Nasal Cannula 2 07/11/25 07:10 82 18 93 Nasal Cannula 2 07/10/25 22:52 36.7 C 93 H 16 116/66 98 Nasal Cannula 2 Queries Orthopedic Spine Vertebral Fracture Secondary to Osteoporosis: Yes
[2025-07-11 13:22] LABS: Hematocrit (blood only) 26.7 % (37.0-47.0); Hemoglobin 8.0 g/dl (12.0-16.0); Mean Corpuscular Hemoglobin 25.9 pg (25.0-34.0); Mean Corpuscular Volume 86.4 fL (80.0-100.0); Platelet Count 232 K/uL (130-400); RDW Standard Deviation 46.8 fL (36.4-46.3); Red Blood Count 3.09 M/uL (4.20-5.40); White Blood Count 10.41 K/ul (4.8-10.8)
[2025-07-11 13:42] LABS: Anion Gap 6.0 (3-11); Blood Urea Nitrogen 19.0 mg/dl (6-23); Calcium 9.0 mg/dl (8.6-10.3); Carbon Dioxide 29.0 mmol/L (21-32); Chloride 103.0 mmol/L (98-107); Creatinine Clr Calc Pharmacy 41.0 ml/min; Glucose 121.0 mg/dl (70-99(Fasting)); Potassium 4.3 mmol/L (3.5-5.1); Sodium 138.0 mmol/L (136-145)
[2025-07-11] MEDS: DOXYCYCLINE HYCLATE 100 MG CAP PO SCH (13:46)
[2025-07-11] MEDS: LACTULOSE SYRUP 20 GM/30 ML UDC PO ONE (14:04)
--- NOTE | 2025-07-11 19:22 | Discharge Summary ---
Discharge Summary Date of Service July 11, 2025 Principal Dx & Hospital Course #1 = Principal Diagnosis (1) COPD with asthma: Hospital course she was delayed union of lumbar compression fracture and s/p kyphoplasty on 07/08 and pain improved however, she's developed acute hypoxic respiratory failure, COPD exacerbation. she was started on solumedrol, magnesium, hypertonic saline duoneb and mucinex her breathing was slowly improving but still on 2 liter at rest and 3 liter with ambulation her CXR concern for bronchitis; started on doxycycline her breathing improved. her troponin is negative. she was dc home with prednisone for 10 days she will need repeat CXR in 3-4 weeks she will need establishment of records management specialist (2) Iron deficiency anemia: (3) Lumbar compression fracture: Plan This is an 80 year old female with past medical history of COPD, asthma, Hypertension, osteoporosis and iron deficiency anemia who presented to the hospital on 07/08 for an elective kyphoplasty with Dr. Duarte. . #COPD/Asthma solumedrol BID for 24-48 hours still not improving. added flutter valve hypertonic saline, mucomyst. she should has pulmonary doctor. and begin maintaince inhaler. Duoneb x 2 in PACU --> continue on q6h prn basis deposition dc home 24-48 hours away need oxygen #Iron Deficiency anemia Hgb 07/08 stable at 9.5 Resume outpatient iron supplements when able following surgery Recheck in AM + Iron panel #L1 Compression fracture s/p Kyphoplasty w/ Dr. Duarte 07/08. defer to neurosurgery about range of motion restriction. and activity restriction. pain control per neurosurgery DVT prophylaxis, PT/OT management, Diet #Mental health - Prozac #GERD - PPI #HTN - HCTZ/Losartan & amlodipine- BP normotensive DVT prophylaxis: per primary team Code: full Admission HPI Per Admitting Provider This is an 80-year-old female who presents with unremitting back pain status post L1 compression fracture and is here for surgical intervention. Discharge Exam VITALS: Reviewed. WEIGHT/BMI reviewed. GEN: Healthy appearing, well-developed, NAD. -Head: NC/AT; -Eyes: PERRL, EOMI. No discharge or redness; -Ears: External ears are normal. Normal TMs. NECK: Supple, with no masses. CV: RRR, no m/r/g. LUNGS: CTAB, no w/r/c. on oxygen; weaning much improved; no accessory muscle age ABD: Soft, NT/ND, NBS, no masses or organomegaly. : N/A SKIN: Warm, well perfused. No skin rashes or abnormal lesions. MSK: No deformities, Normal gait. EXT: No clubbing, cyanosis, or edema. NEURO: AAox3 Discharge Plan Discharge Items Patient Disposition: Home - Home Health Services Reason For Visit: Compression Fracture of L1 Vertebra with Delayed H Discharge Diagnosis: L1 compression fracture Activity: As commented below Lifting: No more than 5 pounds Non-emergency contact: Primary Care Provider Call non-emergency contact if: you have any medication questions Follow-up/Referrals: Cirilo Macias MD [Primary Care Provider] - Diet: Regular Addtl Attending Provider Instructions: Please lift no more than 5 pounds. May shower postop day #1. Follow-up as scheduled in 2 weeks. Pending Studies at Discharge: Yes Stand-Alone Forms: Anesthesia/Sedation, Adult, [facility], Smoking Cessation Medications and DC Order Prescriptions: New tramadol 50 mg tablet 50 mg PO Q6H PRN (Reason: pain, moderate) Qty: 20 0RF doxycycline hyclate 100 mg Capsule 100 mg PO BID 8 Days Qty: 16 0RF ipratropium-albuterol 0.5 mg-3 mg(2.5 mg base)/3 mL Solution For Nebulization 3 ml NEB Q6R 30 Days Qty: 30 1RF albuterol sulfate [Ventolin HFA] 90 mcg/actuation Hfa Aerosol Inhaler 2 puff inhalation Q4H 30 Days Qty: 8.7 0RF guaifenesin [Mucinex] 600 mg Tablet Extended Release 12hr 1,200 mg PO Q12 30 Days Qty: 120 0RF prednisone 20 mg tablet 20 mg PO DAILY 11 Days Qty: 11 0RF Rx Instructions: days 11-21 of therapy prednisone 50 mg tablet 50 mg PO DAILY 10 Days Qty: 10 0RF Continued hydrocortisone 2.5 % cream 1 applic topical TID PRN (Reason: skin irritation) Qty: 30 5RF fluticasone propionate [Allergy Relief (fluticasone)] 50 mcg/actuation spray,suspension 2 spray intranasal DAILY Qty: 16 11RF Rx Instructions: administer into each nostril potassium chloride [Klor-Con 10] 10 mEq tablet extended release 30 meq PO BID Qty: 540 3RF amlodipine [Norvasc] 10 mg tablet 10 mg PO QPM Qty: 90 3RF trazodone 50 mg tablet See Rx Instructions PO HS PRN (Reason: Insomnia) Qty: 180 3RF Rx Instructions: 1-2 tabs orally at bedtime PRN; lorazepam 1 mg tablet 1 mg PO DAILY PRN (Reason: Insomnia) Qty: 90 2RF losartan-hydrochlorothiazide 100-25 mg tablet 1 tab PO QAM Qty: 90 3RF albuterol sulfate 90 mcg/actuation HFA aerosol inhaler 2 puff INH Q4H PRN (Reason: shortness of breath) Qty: 18 5RF (DME) nebulizers Misc See Rx Instructions .ROUTE .MEDSUPPLY Qty: 1 0RF Rx Instructions: Q 4HR WITH TUBING & SUPPLIES - fluoxetine 20 mg capsule 40 mg PO QAM Qty: 180 3RF Rx Instructions: take with breakfast brimonidine 0.1 % drops 1 drp ophthalmic (eye) QAM latanoprost 0.005 % drops 1 drp ophthalmic (eye) HS (DME) Wheeled Walker Misc See Rx Instructions .Route Qty: 1 0RF Rx Instructions: Rollator type roller walker, high umeclidinium-vilanterol [Anoro Ellipta] 62.5-25 mcg/actuation blister with device 1 inh inhalation DAILY Qty: 180 3RF Patient Comments: uses prn prednisone 1 mg tablet 1 mg PO DAILY Patient Comments: taking for pain omeprazole 20 mg capsule,delayed release(DR/EC) 20 mg PO DAILY Qty: 30 3RF tramadol 50 mg tablet 50 mg PO TID PRN (Reason: pain) Qty: 90 2RF (DME) transport chair See Rx Instructions .Route .MEDSUPPLY Qty: 1 0RF Rx Instructions: As directed cyanocobalamin (vitamin B-12) 500 mcg Tablet 500 mcg PO QAM acetaminophen [Tylenol Extra Strength] 500 mg tablet 1,000 mg PO QID PRN (Reason: Pain) Discharge Orders: Discharge Order (Routine); Ordered 07/11/25 Ordered By: Dany Tanner/Other Patient Handouts: DVT Post Op Prevention, Understanding Oxygen Therapy Admission Data Admit Date/Time: 07/08/25 14:16 Attending Provider: Dangelo Duarte Admit Provider: Dangelo Duarte Primary Care Provider: Cirilo Macias Other Providers: Lauro,Home Health; Dany Alvarado Other Interventions: Discharge Summary Assessment (RN) Last Done: 07/11/25 15:14 Hospital Stay Data Consultations 07/08/25 17:53 Consult Internal Medicine Routine Procedures Performed Operation Date: 07/08/25 07:45 Actual Procedures p L1 Kyphoplasty(Not Applicable) - Dangelo Duarte DO Diagnostic Imagining Performed 07/08/25 FL kyphoplasty any level Routine Pending Results Patient Have Any Pending Studies at Discharge: Yes Discharge Instructions Given to Patient (Per Discharging Provider) Please lift no more than 5 pounds. May shower postop day #1. Follow-up as scheduled in 2 weeks. Total Time Total Time Spent Total Time Spent (In Minutes): 35 Coding Level of Care Code 53219 INP/OBS DISCH >30 MIN Diagnoses COPD with asthma J44.9 Iron deficiency anemia D50.9 Lumbar compression fracture S32.000A Time Spent (min) 35
== END 2025-07-11 15:50 | disposition home health service (06) | DRG 477 ==
LOC: ASU 06:09 → 3N 14:16